=== PATIENT | female | born 1980 | race Two or more races ===

== ENCOUNTER → 2016-08-23 | Outpatient (CLI) | payer MEDICARE, MEDICAID ==
[2016-08-23 12:02] LABS: HEMATOCRIT 38.2 % (36.0-47.0); HEMOGLOBIN 12.7 g/dL (12.0-15.5); HGB HCT DIFFERENCE -0.1; MEAN CORPUSCULAR HEMOGLOBIN 30.7 pg (27.0-33.4); MEAN CORPUSCULAR HGB CONC 33.3 g/dL (32.0-36.0); MEAN CORPUSCULAR VOLUME 92 fl (80-97); RED BLOOD COUNT 4.15 10^6/uL (3.72-5.28); WHITE BLOOD COUNT 12.6 10^3/uL (4.0-10.5)
[2016-08-23 12:31] LABS: ALANINE AMINOTRANSFERASE 30 U/L (9-52); ALBUMIN 4.3 g/dL (3.5-5.0); ALKALINE PHOSPHATASE 96 U/L (38-126); ANION GAP 10 (5-19); ASPARTATE AMINO TRANSFERASE 22 U/L (14-36); BILIRUBIN,TOTAL 0.3 mg/dL (0.2-1.3); BLOOD UREA NITROGEN 22 mg/dL (7-20); CALCIUM 9.4 mg/dL (8.4-10.2); CARBON DIOXIDE 18 mmol/L (22-30); CHLORIDE 115 mmol/L (98-107); CREATININE RESULT 0.95 mg/dL (0.52-1.25); GLUCOSE 90 mg/dL (75-110); SODIUM 143.1 mmol/L (137-145); TOTAL PROTEIN 6.9 g/dL (6.3-8.2)
== END ==
LOC: OD 11:29
PROVIDERS: ATTEND Specialist
DX: G43.909 Migraine, unspecified, not intractable, without status migrainosus (principal); I63.9 Cerebral infarction, unspecified
CPT/HCPCS: 36415; 80053; 82140; 85027

== ENCOUNTER → 2016-11-21 | Outpatient (CLI) | payer MEDICARE, MEDICAID | LOC: OD 09:41 | PROVIDERS: ATTEND Family Medicine | DX: G81.94 Hemiplegia, unspecified affecting left nondominant side (principal); Z53.29 Procedure and treatment not carried out because of patient's decision for other reasons ==

== ENCOUNTER → 2016-12-07 | Outpatient (CLI) | payer MEDICARE, MEDICAID ==
[2016-12-07 10:09] LABS: ABSOLUTE BASOPHILS # (AUTO) 0.1 10^3/uL (0.0-0.2); ABSOLUTE EOSINOPHILS # (AUTO) 0.3 10^3/uL (0.0-0.6); ABSOLUTE LYMPHOCYTES (AUTO) 1.5 10^3/uL (0.5-4.7); ABSOLUTE MONOCYTES (AUTO) 0.7 10^3/uL (0.1-1.4); ABSOLUTE NEUT (AUTO) 8.3 10^3/uL (1.7-8.2); HEMATOCRIT 39.6 % (36.0-47.0); HGB HCT DIFFERENCE -0.6; LYMPHOCYTES % (AUTO) 13.7 % (13-45); MEAN CORPUSCULAR HEMOGLOBIN 30.5 pg (27.0-33.4); MEAN CORPUSCULAR HGB CONC 32.8 g/dL (32.0-36.0); MEAN CORPUSCULAR VOLUME 93 fl (80-97); MONOCYTES % (AUTO) 6.7 % (3-13); RED BLOOD COUNT 4.26 10^6/uL (3.72-5.28); RED CELL DISTRIBUTION WIDTH 15.1 % (11.5-14.0); SEGMENTED NEUTROPHILS % (AUTO) 75.6 % (42-78)
[2016-12-07 10:17] LABS: PROTHROMBIN TIME 13.7 SEC (11.4-15.4)
[2016-12-07 10:18] LABS: PARTIAL THROMBOPLASTIN TIME 30.3 SEC (23.5-35.8)
[2016-12-07 10:33] LABS: ALANINE AMINOTRANSFERASE 20 U/L (9-52); ALBUMIN 3.9 g/dL (3.5-5.0); ALKALINE PHOSPHATASE 96 U/L (38-126); ANION GAP 10 (5-19); ASPARTATE AMINO TRANSFERASE 15 U/L (14-36); BILIRUBIN,DIRECT 0.4 mg/dL (0.0-0.4); BILIRUBIN,TOTAL 0.5 mg/dL (0.2-1.3); BLOOD UREA NITROGEN 23 mg/dL (7-20); CALCIUM 9.5 mg/dL (8.4-10.2); CARBON DIOXIDE 19 mmol/L (22-30); CHLORIDE 112 mmol/L (98-107); CREATININE RESULT 0.98 mg/dL (0.52-1.25); GLUCOSE 89 mg/dL (75-110); POTASSIUM 4.2 mmol/L (3.6-5.0); SODIUM 140.8 mmol/L (137-145); TOTAL PROTEIN 6.7 g/dL (6.3-8.2)
== END ==
LOC: OD 09:32
PROVIDERS: ATTEND Family Medicine
DX: F41.9 Anxiety disorder, unspecified (principal); G81.94 Hemiplegia, unspecified affecting left nondominant side; I69.328 Other speech and language deficits following cerebral infarction; I69.30 Unspecified sequelae of cerebral infarction
CPT/HCPCS: 36415; 80048; 80076; 82140; 84443; 85025; 85610; 85730

== ENCOUNTER 2017-01-04 21:57 | Emergency (ER) | payer MEDICARE, MEDICAID ==
--- NOTE | 2017-01-04 22:10 | ER Document Report ---
ED Medical Screen (RME) - General Chief Complaint: S/S of Possible Stroke Stated Complaint: NUMBNESS Time Seen by Provider: 01/04/17 22:06 Notes: 36-year-old female with a history of CVA and liver failure that comes emergency department for chief complaint of numbness and weakness in the right hand worse than normal starting 2 hours ago. She states she also feels tingling in the right side of her face. She has chronic deficits of speech difficulty from previous CVA. She is not on a blood thinner. She denies any fall or head injury. TRAVEL OUTSIDE OF THE [place] IN LAST 30 DAYS: No - Related Data Allergies/Adverse Reactions: No Known Allergies Allergy (Verified 08/03/15 16:11) Past Medical History - Past Medical History Cardiac Medical History: Reports: Hx Hypertension Denies: Hx Coronary Artery Disease, Hx Heart Attack Pulmonary Medical History: Denies: Hx Asthma, Hx Bronchitis, Hx COPD, Hx Pneumonia, Hx Tuberculosis Neurological Medical History: Reports: Hx Cerebrovascular Accident - Last MRI on 03/14/2013 showed bilateral acute and chronic infarcts in the cerebral and cerebellar hemispheres. At that time a cardiac echo and carotid Doppler studies were negative., Hx Migraine. Denies: Hx Seizures Endocrine Medical History: Denies: Hx Diabetes Mellitus Type 1, Hx Diabetes Mellitus Type 2 Renal/ Medical History: Denies: Hx Peritoneal Dialysis GI Medical History: Reports: Hx Diverticulitis Musculoskeltal Medical History: Denies Hx Arthritis Psychiatric Medical History: Reports: Hx Anxiety, Hx Bipolar Disorder, Hx Depression Past Surgical History: Reports: Hx Section - x1, Hx Cholecystectomy, Hx Pancreatic Surgery - stents. Denies: Hx Pacemaker - Immunizations Immunizations up to date: No Hx Diphtheria, Pertussis, Tetanus Vaccination: Yes Physical Exam - Vital signs Vitals: Temp Pulse Resp BP Pulse Ox 98.3 F 83 20 123/68 97 01/04/17 21:59 01/04/17 21:59 01/04/17 21:59 01/04/17 21:59 01/04/17 21:59 - Neurological Cognition: No: Confused, Inattentive Orientation: AAOx4 [place] Coma Scale Eye Opening: Spontaneous [place] Coma Scale Verbal: Oriented [place] Coma Scale Motor: Obeys Commands [place] Coma Scale Total: 15 Speech: Other - Patient with chronic speech deficit Cranial nerves: No: Facial palsy, Forehead sparing, Gaze palsy, Tongue deviation Cerebellar coordination: No: Gait ataxia Additional motor exam normals: No: Equal manager photo - Left hand contractures, difficult to compare right hand although she does have a right hand squeeze Course - Re-evaluation Re-evalutation: Patient and family have difficulty giving a clear history, patient has difficulty with physical exam with left hand contractures, speech deficit, although I do not appreciate any overt neurological deficits on examination other than what appears to be chronic. Regardless because of reported weakness , numbness, and CVA history stroke protocol initiated. - Vital Signs Vital signs: Temp Pulse Resp BP Pulse Ox 98.3 F 83 20 123/68 97 01/04/17 21:59 01/04/17 21:59 01/04/17 21:59 01/04/17 21:59 01/04/17 21:59
--- NOTE | 2017-01-04 22:46 | ER Document Report ---
ED General - General Chief Complaint: S/S of Possible Stroke Stated Complaint: NUMBNESS Time Seen by Provider: 01/04/17 22:06 Notes: Patient is a 36 year old female with a past medical history of prior CVA with residual dysarthria, bilateral upper extremity weakness who presents with paresthesias of the dorsal aspect of her right hand and of her right cheek. She is uncertain of what time this started exactly what states that she thinks it was 3-4 hours ago although again states she is not actually certain of what time this started. She denies any true loss of sensation, weakness, change in her speech pattern, headache or neck pain. Nothing improves or worsens her symptoms. She has not seen her primary care doctor regarding today's concerns. She is not currently on anti-anticoagulation even aspirin due to prior history of a Tylenol overdose with some residual hepatic failure. She does note that her paresthesias are intermittent in nature and have been unchanged since onset in their intensity. TRAVEL OUTSIDE OF THE [place] IN LAST 30 DAYS: No - Related Data Allergies/Adverse Reactions: No Known Allergies Allergy (Verified 08/03/15 16:11) Past Medical History - General Information source: Patient - Social History Smoking Status: Current Every Day Smoker Frequency of alcohol use: None Drug Abuse: None Lives with: Spouse/Significant other Family History: Reviewed & Not Pertinent, DM, Hypertension Patient has suicidal ideation: No Patient has homicidal ideation: No - Past Medical History Cardiac Medical History: Reports: Hx Hypertension Denies: Hx Coronary Artery Disease, Hx Heart Attack Pulmonary Medical History: Denies: Hx Asthma, Hx Bronchitis, Hx COPD, Hx Pneumonia, Hx Tuberculosis Neurological Medical History: Reports: Hx Cerebrovascular Accident - Last MRI on 03/14/2013 showed bilateral acute and chronic infarcts in the cerebral and cerebellar hemispheres. At that time a cardiac echo and carotid Doppler studies were negative., Hx Migraine. Denies: Hx Seizures Endocrine Medical History: Denies: Hx Diabetes Mellitus Type 1, Hx Diabetes Mellitus Type 2 Renal/ Medical History: Denies: Hx Peritoneal Dialysis GI Medical History: Reports: Hx Diverticulitis Musculoskeltal Medical History: Denies Hx Arthritis Psychiatric Medical History: Reports: Hx Anxiety, Hx Bipolar Disorder, Hx Depression Past Surgical History: Reports: Hx Section - x1, Hx Cholecystectomy, Hx Pancreatic Surgery - stents. Denies: Hx Pacemaker - Immunizations Immunizations up to date: No Hx Diphtheria, Pertussis, Tetanus Vaccination: Yes Hx Pneumococcal Vaccination: 07/16/00 Review of Systems - Review of Systems Notes: Constitutional: Negative for fever. HENT: Negative for sore throat. Eyes: Negative for visual changes. Cardiovascular: Negative for chest pain. Respiratory: Negative for shortness of breath. Gastrointestinal: Negative for abdominal pain, vomiting or diarrhea. Genitourinary: Negative for dysuria. Musculoskeletal: Negative for back pain. Skin: Negative for rash. Neurological: Negative for headaches, weakness or numbness. Positive for dorsal right hand paresthesias as well as right cheek paresthesias. 10 point ROS negative except as marked above and in HPI. Physical Exam - Vital signs Vitals: Temp Pulse Resp BP Pulse Ox 98.3 F 83 20 123/68 97 01/04/17 21:59 01/04/17 21:59 01/04/17 21:59 01/04/17 21:59 01/04/17 21:59 Interpretation: Normal Notes: PHYSICAL EXAMINATION: GENERAL: Well-appearing, well-nourished and in no acute distress. HEAD: Atraumatic, normocephalic. EYES: Pupils equal round and reactive to light, extraocular movements intact, sclera anicteric, conjunctiva are normal. ENT: nares patent, oropharynx clear without exudates. Moist mucous membranes. NECK: Normal range of motion, supple without lymphadenopathy LUNGS: Breath sounds clear to auscultation bilaterally and equal. No wheezes rales or rhonchi. HEART: Regular rate and rhythm without murmurs ABDOMEN: Soft, nontender, normoactive bowel sounds. No guarding, no rebound. No masses appreciated. EXTREMITIES: Normal range of motion, no pitting or edema. No cyanosis. NEUROLOGICAL: Face symmetric. Tongue protrudes midline. Extraocular motions intact. Pupils are 2 mm and equally reactive. Slight dysarthria, normal gait. 5 out of 5 strength in both the distal and proximal upper and lower extremities bilaterally. Contracture of the left hand. No sensory deficit present. Patient has full sensation in the RMU distribution in the bilateral upper extremities. Facial sensation is equal and symmetric bilaterally without any true sensory deficit on touch. Finger to nose testing normal. Pronator drift normal. PSYCH: Normal mood, normal affect. SKIN: Warm, Dry, normal turgor, no rashes or lesions noted. Course - Re-evaluation Re-evalutation: 01/04/17 22:46 Patient presents with paresthesias of the cheek on the right side as well as her hand over the dorsal surface on the right. This is not consistent with a central process. Moreover her symptoms are intermittent. She would not be a TPA candidate given that her NIH stroke scale at time of arrival is unchanged from her reported baseline without any true sensory deficit in any location. Moreover patient is uncertain of the exact time of onset. I reviewed with the patient and her at the bedside that even if this was an acute onset of a new CVA, no acute intervention would be recommended given the nature of her deficits, the uncertain onset time, particularly given the risks of intracranial hemorrhage in the setting of TPA relative to the possible benefits of improvement of her mild symptoms. Patient does have a prior history of a CVA and is following with an outpatient primary care doctor for her needs. Unfortunately, patient is not currently on any anticoagulation despite this prior history of CVA given her history of liver failure in the past although recent laboratories from the end of November 2016 did not demonstrate any LFT abnormalities her INR derangement. I therefore encouraged the patient to begin taking a daily baby aspirin. I have asked her to follow-up with her primary care doctor to complete carotid Dopplers. No indication for repeat labs today again as I do not suspect an acute TIA or CVA based on her exam and history. Her CT of the head obtained in triage is noted to be without evidence of an acute pathology. I do not believe an emergent MRI is indicated given her normal neurologic examination with the exception of her baseline dysarthria and left-sided ataxia and contracture of the left hand. At this time will discharge with return precautions and follow-up recommendations. Verbal discharge instructions given a the bedside and opportunity for questions given. Medication warnings reviewed. Patient is in agreement with this plan and has verbalized understanding of return precautions and the need for primary care follow-up in the next 24-72 hours. - Vital Signs Vital signs: Temp Pulse Resp BP Pulse Ox 98.3 F 83 20 123/68 97 01/04/17 21:59 01/04/17 21:59 01/04/17 21:59 01/04/17 21:59 01/04/17 21:59 - Diagnostic Test Radiology reviewed: Image reviewed, Reports reviewed Radiology results interpreted by me: 01/04/17 22:48 CT head: No acute intracranial bleed - EKG Interpretation by Me Additional EKG results interpreted by me: 01/04/17 22:53 Medical sinus rhythm. Rate 60. No ST elevations or depressions. QTC is 428. Discharge - Discharge Clinical Impression: Paresthesias in right hand, Facial paresthesia Condition: Good Disposition: HOME, SELF-CARE Additional Instructions: Your symptoms do not appear consistent with an acute stroke. However, your labs from late November are normal and I have asked that she begin taking aspirin 81 mg daily. Please also follow-up with your primary care doctor in the next several days regarding today's episode. Please return if you develop a loss of sensation in any region, new weakness, new speech difficulties, confusion, or any other symptoms that are worrisome to you.
--- NOTE | 2017-01-04 22:52 | RADIOLOGY REPORT (SQ) ---
EXAM DESCRIPTION: CHEST SINGLE VIEW COMPLETED DATE/TIME: 01/04/2017 10:16 pm REASON FOR STUDY: right sided weakness/numbness COMPARISON: May 2016 EXAM PARAMETERS: NUMBER OF VIEWS: One view. TECHNIQUE: Single frontal radiographic view of the chest acquired. RADIATION DOSE: NA LIMITATIONS: None. FINDINGS: LUNGS AND PLEURA: No opacities, masses or pneumothorax. No pleural effusion. MEDIASTINUM AND HILAR STRUCTURES: No masses. Contour normal. HEART AND VASCULAR STRUCTURES: Heart normal in size. Normal vasculature. BONES: No acute findings. HARDWARE: None in the chest. OTHER: No other significant finding. IMPRESSION: NO ACUTE RADIOGRAPHIC FINDING IN THE CHEST. TECHNICAL DOCUMENTATION: JOB ID: [id number]
--- NOTE | 2017-01-04 22:52 | RADIOLOGY REPORT (SQ) ---
EXAM DESCRIPTION: CT HEAD WITHOUT COMPLETED DATE/TIME: 01/04/2017 10:14 pm REASON FOR STUDY: right sided weakness/numbness COMPARISON: Multiple previous studies most recent of which was November 2015 TECHNIQUE: Axial images acquired through the brain without intravenous contrast. Images reviewed wi th bone, brain and subdural windows. Images stored on PACS. All CT scanners at this facility use dose modulation, iterative reconstruction, and/or weight based d osing when appropriate to reduce radiation dose to as low as reasonably achievable (ALARA). [facility]: Dose Right [facility]: CareDose [facility]: Dose Right [facility]: Teradose 4D [facility]: Smart [employer] RADIATION DOSE: Up-to-date CT equipment and radiation dose reduction techniques were employed. CTDIv ol: 55.2 mGy. DLP: 1084 mGy-cm. mGy. LIMITATIONS: None. FINDINGS: VENTRICLES: Prominent. CEREBRUM: No masses. No hemorrhage. No midline shift. Areas of low density in the white matter mos t likely due to chronic micro-vascular ischemic change. The previously described multiple areas of p rior infarction involving the right occipital lobe, bilateral frontal and right parietal lobes appear s stable. No evidence for acute infarction. CEREBELLUM: No masses. No hemorrhage. No alteration of density. No evidence for acute infarction. EXTRAAXIAL SPACES: Mild age-related involutional change. No fluid collections. No masses. ORBITS AND GLOBE: No intra- or extraconal masses. Normal contour of globe without masses. CALVARIUM: No fracture. PARANASAL SINUSES: No fluid or mucosal thickening. SOFT TISSUES: No mass or hematoma. OTHER: No other significant finding. IMPRESSION: MILD CHRONIC CHANGES OF ATROPHY AND MICROVASCULAR ISCHEMIA. Multiple areas of prior inf arction which appears stable. NO ACUTE PROCESS. TECHNICAL DOCUMENTATION: JOB ID: [id number] Quality ID # [id number]: Final reports with documentation of one or more dose reduction techniques (e.g., Au tomated exposure control, adjustment of the mA and/or kV according to patient size, use of iterative reconstruction technique) 2010 [employer]- All Rights Reserved
[2017-01-05 00:25] VITALS: BP 125/76
--- NOTE | 2017-01-05 03:57 | EKG REPORT ---
SEVERITY:- NORMAL ECG - SINUS RHYTHM : Confirmed by: Cher Goodwin MD 05-Jan-2017 03:55:50
== END 2017-01-05 00:25 | disposition home or self-care (01) ==
LOC: ER 21:57
DX: R20.9 Unspecified disturbances of skin sensation (principal); I69.122 Dysarthria following nontraumatic intracerebral hemorrhage; F17.200 Nicotine dependence, unspecified, uncomplicated; I10 Essential (primary) hypertension
CPT/HCPCS: 70450; 71010; 93005; 93010; 99284

== ENCOUNTER → 2017-04-06 | Outpatient (CLI) | payer MEDICARE, MEDICAID ==
--- NOTE | 2017-04-06 14:14 | RADIOLOGY REPORT (SQ) ---
EXAM DESCRIPTION: HAND LEFT 3 VIEWS COMPLETED DATE/TIME: 04/06/2017 11:29 am REASON FOR STUDY: UNSP INJURY OF LEFT WRIST, HAND AND FINGER(S), INIT ENCNTR S69.92XA UNSP INJURY O F LEFT WRIST, HAND AND FINGER(S), INIT COMPARISON: None. EXAM PARAMETERS: NUMBER OF VIEWS: Three views. TECHNIQUE: AP, lateral and oblique radiographic images acquired of the left hand. LIMITATIONS: None. FINDINGS: MINERALIZATION: There is periarticular osteopenia throughout the hand, from the distal rad ius and ulna through the fingertips. Clinically correlate for reflex sympathetic dystrophy. BONES: No acute fracture or dislocation. No worrisome bone lesions. JOINTS: No effusions. SOFT TISSUES: No soft tissue swelling. No foreign body. OTHER: No other significant finding. IMPRESSION: No acute fracture. Periarticular osteopenia, question of reflex sympathetic dystrophy TECHNICAL DOCUMENTATION: JOB ID: [id number] [employer]- All Rights Reserved
== END ==
LOC: OD 11:06
PROVIDERS: ATTEND Family Medicine
DX: S69.92XA Unspecified injury of left wrist, hand and finger(s), initial encounter (principal); X58.XXXA Exposure to other specified factors, initial encounter

== ENCOUNTER 2017-08-31 16:14 | Emergency (ER) | payer MEDICARE, MEDICAID ==
[2017-08-31] MEDS ORDERED: HYDROCODONE/ACETAMINOPHEN 5-325 MG TABLET PO ONE (18:11)
[2017-08-31] MEDS ORDERED: LIDOCAINE 5% (700 MG) TRANSDERMAL ADH..PATCH TP ONE (18:11)
--- NOTE | 2017-08-31 18:15 | ER Document Report ---
HPI - HPI Onset: This morning Onset/Duration: Gradual Quality of pain: Achy Pain Level: 5 Context: Patient states that she was sleeping twisted up on the couch with her dog landing on her feet. Patient states because of this position she developed low back pain. Patient denies any traumatic injury. Patient denies any urinary retention or incontinence. Patient denies any dysuria. Patient denies any fever. Associated Symptoms: Other - Low back pain. denies: Fever Exacerbated by: Movement Relieved by: Denies Similar symptoms previously: No Recently seen / treated by doctor: No - ROS ROS below otherwise negative: Yes Systems Reviewed and Negative: Yes All other systems reviewed and negative - CONSTITUTIONAL Constitutional: DENIES: Fever, Chills - RESPIRATORY Respiratory: DENIES: Trouble Breathing - GASTROINTESTINAL Gastrointestinal: DENIES: Abdominal Pain - URINARY Urinary: DENIES: Dysuria - REPRODUCTIVE LMP: 08/06/17 Reproductive: DENIES: : - MUSCULOSKELETAL Musculoskeletal: REPORTS: Back Pain. DENIES: Extremity pain - DERM Skin Color: Normal Skin Problems: None Past Medical History - General Information source: Patient - Social History Smoking Status: Current Every Day Smoker Frequency of alcohol use: None Drug Abuse: None Occupation: None Lives with: Family Family History: Reviewed & Not Pertinent, DM, Hypertension Patient has suicidal ideation: No Patient has homicidal ideation: No - Past Medical History Cardiac Medical History: Reports: Hx Hypertension Denies: Hx Coronary Artery Disease, Hx Heart Attack Pulmonary Medical History: Denies: Hx Asthma, Hx Bronchitis, Hx COPD, Hx Pneumonia, Hx Tuberculosis Neurological Medical History: Reports: Hx Cerebrovascular Accident - Last MRI on 03/14/2013 showed bilateral acute and chronic infarcts in the cerebral and cerebellar hemispheres. At that time a cardiac echo and carotid Doppler studies were negative., Hx Migraine. Denies: Hx Seizures Endocrine Medical History: Denies: Hx Diabetes Mellitus Type 1, Hx Diabetes Mellitus Type 2 Renal/ Medical History: Denies: Hx Peritoneal Dialysis GI Medical History: Reports: Hx Diverticulitis, Hx Pancreatitis Musculoskeltal Medical History: Denies Hx Arthritis Psychiatric Medical History: Reports: Hx Anxiety, Hx Bipolar Disorder, Hx Depression Past Surgical History: Reports: Hx Section - x1, Hx Cholecystectomy, Hx Pancreatic Surgery - stents. Denies: Hx Pacemaker - Immunizations Immunizations up to date: No Hx Diphtheria, Pertussis, Tetanus Vaccination: Yes Hx Pneumococcal Vaccination: 07/16/00 Vertical Provider Document - CONSTITUTIONAL Agree With Documented VS: Yes Exam Limitations: No Limitations General Appearance: WD/WN, No Apparent Distress - INFECTION CONTROL TRAVEL OUTSIDE OF THE [place] IN LAST 30 DAYS: No - HEENT HEENT: Atraumatic, Normocephalic - NECK Neck: Normal Inspection - RESPIRATORY Respiratory: Breath Sounds Normal, No Respiratory Distress O2 Sat by Pulse Oximetry: 97 - CARDIOVASCULAR Cardiovascular: Regular Rate, Regular Rhythm - GI/ABDOMEN Gastrointestinal: Abdomen Soft, Abdomen Non-Tender - BACK Back: Abnormal Inspection - Lumbar paraspinal tenderness, no CVA tenderness, no midline tenderness, step-off or deformity. negative: CVA Tenderness-Right, CVA Tenderness-Left - MUSCULOSKELETAL/EXTREMETIES Musculoskeletal/Extremeties: MAEW, FROM, Non-Tender - NEURO Level of Consciousness: Awake, Alert, Appropriate Motor/Sensory: No Motor Deficit - DERM Integumentary: Warm, Dry Course - Vital Signs Vital signs: Temp Pulse Resp BP Pulse Ox 99.0 F 63 16 97/55 L 97 08/31/17 16:26 08/31/17 16:26 08/31/17 16:26 08/31/17 16:26 08/31/17 16:26 - Laboratory Laboratory results interpreted by me: 08/31/17 18:55 Labs- Entire Visit 08/31/17 18:20 Urine Color STRAW Urine Appearance CLEAR Urine pH 6.0 Ur Specific [place] 1.004 Urine Protein NEGATIVE Urine Glucose (UA) NEGATIVE Urine Ketones NEGATIVE Urine Blood NEGATIVE Urine Nitrite NEGATIVE Urine Bilirubin NEGATIVE Urine Urobilinogen NEGATIVE Ur Leukocyte Esterase NEGATIVE Urine WBC (Auto) 1 Urine RBC (Auto) 0 Urine Bacteria (Auto) TRACE Squamous Epi Cells Auto 2 Urine Mucus (Auto) RARE Urine Ascorbic Acid NEGATIVE Discharge - Discharge Clinical Impression: Low back strain Qualifiers: Encounter type: initial encounter Qualified Code(s): S39.012A - Strain of muscle, fascia and tendon of lower back, initial encounter Condition: Stable Disposition: HOME, SELF-CARE Instructions: Ice Packs ([facility]), Low Back Pain ([facility]), Warm Packs ([facility]) Additional Instructions: Return immediately for any new or worsening symptoms Followup with your primary care provider, call tomorrow to make a followup appointment You may use [id number] topical lidocaine patches as directed Prescriptions: Cyclobenzaprine HCl [Flexeril 5 mg Tablet] 5 mg PO TID PRN #12 tablet PRN Reason: Naproxen [Naprosyn 250 Nmg Tablet] 1 tab PO BID #14 tablet Referrals: VANESSA PERALTA DO [NO LOCAL MD] - 09/03/17
[2017-08-31] MEDS ORDERED: IBUPROFEN 800 MG TABLET PO ONE (18:16)
[2017-08-31 18:38] LABS: APPEARANCE,URINE CLEAR; BILIRUBIN,URINE NEGATIVE (NEGATIVE); COLOR,URINE STRAW; GLUCOSE, URINE NEGATIVE (NEGATIVE); KETONES,URINE NEGATIVE (NEGATIVE); LEUKOCYTE ESTERASE,URINE NEGATIVE (NEGATIVE); NITRITE,URINE NEGATIVE (NEGATIVE); PROTEIN,URINE NEGATIVE (NEGATIVE); URINE SPECIFIC GRAVITY 1.004; UROBILINOGEN,URINE NEGATIVE mg/dL (<2.0)
[2017-08-31 19:07] VITALS: BP 99/58
== END 2017-08-31 19:08 | disposition home or self-care (01) ==
LOC: ER 16:14
DX: S39.012A Strain of muscle, fascia and tendon of lower back, initial encounter (principal); I10 Essential (primary) hypertension; F17.200 Nicotine dependence, unspecified, uncomplicated; X58.XXXA Exposure to other specified factors, initial encounter
CPT/HCPCS: 99283; 81001; A9270

== ENCOUNTER → 2018-03-13 | Outpatient (CLI) | payer MEDICARE, MEDICAID ==
--- NOTE | 2018-03-13 15:02 | RADIOLOGY REPORT (SQ) ---
EXAM DESCRIPTION: FOOT LEFT COMPLETE COMPLETED DATE/TIME: 03/13/2018 2:54 pm REASON FOR STUDY: PAIN IN LT FOOT M79.672 PAIN IN LEFT FOOT R07.81 PLEURODYNIA COMPARISON: None. NUMBER OF VIEWS: Three views. TECHNIQUE: AP, lateral and oblique radiographic images acquired of the left foot. LIMITATIONS: None. FINDINGS: MINERALIZATION: Normal. BONES: No acute fracture or dislocation. No worrisome bone lesions. JOINTS: No effusions. SOFT TISSUES: No soft tissue swelling. No foreign body. OTHER: No other significant finding. IMPRESSION: NEGATIVE STUDY OF THE LEFT FOOT. NO RADIOGRAPHIC EVIDENCE OF ACUTE INJURY. TECHNICAL DOCUMENTATION: JOB ID: [id number] [employer]- All Rights Reserved Reading location - IP/workstation name: [email or web address]
--- NOTE | 2018-03-13 15:04 | RADIOLOGY REPORT (SQ) ---
EXAM DESCRIPTION: RIBS RIGHT W/PA CHEST COMPLETED DATE/TIME: 03/13/2018 2:54 pm REASON FOR STUDY: PLEURODYNIA M79.672 PAIN IN LEFT FOOT R07.81 PLEURODYNIA COMPARISON: None. TECHNIQUE: Frontal view of the chest and additional views of the right ribs acquired. NUMBER OF VIEWS: Four view. LIMITATIONS: None. FINDINGS: FRONTAL CXR: No pneumothorax. No pleural effusion. No atelectasis or infiltrates. RIBS: There are mildly displaced fractures of the 7th and 8th lateral ribs. OTHER: No other significant finding. IMPRESSION: Mildly displaced 7th and 8th right lateral rib fractures. COMMENT: SITE OF TRAUMA/COMPLAINT MARKED/STAMP COMPLETED: YES. TECHNICAL DOCUMENTATION: JOB ID: [id number] [employer]- All Rights Reserved Reading location - IP/workstation name: [email or web address]
== END ==
LOC: OD 14:19
PROVIDERS: ATTEND Family Medicine
DX: M79.672 Pain in left foot (principal); R07.81 Pleurodynia; S22.41XA Multiple fractures of ribs, right side, initial encounter for closed fracture; X58.XXXA Exposure to other specified factors, initial encounter

== ENCOUNTER → 2018-05-09 | Outpatient (CLI) | payer MEDICARE, MEDICAID ==
--- NOTE | 2018-05-09 10:28 | RADIOLOGY REPORT (SQ) ---
EXAM DESCRIPTION: MRI HEAD COMBO COMPLETED DATE/TIME: 05/09/2018 9:59 am REASON FOR STUDY: UNSPEC SEQUELAE OF CEREBRAL INFARCTION (I69.30) I73.9 PERIPHERAL VASCULAR DISEASE , UNSPECIFIED R10.13 EPIGASTRIC PAIN I69.30 UNSPECIFIED SEQUELAE OF CEREBRAL INFARCTION COMPARISON: CT brain 01/04/2017, 11/20/2015 MRI brain 03/14/2013, 12/07/2011 TECHNIQUE: Multiplanar imaging includes noncontrasted T1, T2, FLAIR, diffusion with ADC map and post gadolinium contrast T1 sequences. Images stored on PACS. CONTRAST TYPE AND DOSE: 10 mL Dotarem. RENAL FUNCTION: Estimated GFR 57 LIMITATIONS: None. FINDINGS: ANATOMY: No congenital anomalies. Normal vascular flow voids. Pituitary fossa normal. CSF SPACES: Normal in size and contour. No hemorrhage. CEREBRUM: Multiple old moderate-sized cortical and subcortical white matter infarcts are present thro ughout the cerebral hemispheres. These involve the bifrontal biparietal and bilateral occipital maggy ons and left inferior temporal region. Old lacunar infarct left thalamus. Significant progression o f disease since prior MRI 03/14/2013. Question embolic disease with multiple infarcts in different va scular distributions versus DECK CADET vasculitis. Today's diffusion-weighted images are negative for acute ischemic change. No mass effect or midline shift. POSTERIOR FOSSA: Old bilateral cerebellar lacunar infarcts are present, similar compared MRI from 02/15. No hemorrhage. No edema, masses, or mass effect. Internal auditory canals, cerebellopontine angles, mastoids normal. No enhancing lesions. No abnormal enhancement post contrast. DIFFUSION IMAGING: Negative for acute or subacute infarction. ORBITS: No masses. Globes normal. PARANASAL SINUSES: No fluid levels. Mucosa normal. OTHER: No other significant finding. IMPRESSION: Extensive chronic ischemic change in the hemispheric white matter and bilateral cerebell ar hemispheres. Differential is multiple emboli versus DECK CADET vasculitis. No new findings on today's study. EVIDENCE OF ACUTE STROKE: NO. TECHNICAL DOCUMENTATION: JOB ID: [id number] [employer]- All Rights Reserved Reading location - IP/workstation name: [email or web address]
--- NOTE | 2018-05-09 11:57 | RADIOLOGY REPORT (SQ) ---
EXAM DESCRIPTION: CT ABDOMEN WITH IV ORAL CONT COMPLETED DATE/TIME: 05/09/2018 10:11 am REASON FOR STUDY: EPIGASTRIC PAIN (R10.13) I73.9 PERIPHERAL VASCULAR DISEASE, UNSPECIFIED R10.13 E PIGASTRIC PAIN I69.30 UNSPECIFIED SEQUELAE OF CEREBRAL INFARCTION COMPARISON: None. TECHNIQUE: CT scan of the abdomen performed with intravenous and without oral contrast using helical scanning technique with dynamic intravenous contrast injection. Images reviewed with lung, soft tiss ue, and bone windows. Reconstructed coronal and sagittal MPR images reviewed. Delayed images for eval uation of the urinary system also acquired and evaluated. All images stored on PACS. All CT scanners at this facility use dose modulation, iterative reconstruc tion, and/or weight based dosing when appropriate to reduce radiation dose to as low as reasonably ac hievable (ALARA). [facility]: Dose Right [facility]: CareDose [facility]: Dose Right [facility]: Teradose 4D [facility]: FileHold Document Management software CONTRAST TYPE AND DOSE: contrast/concentration: Isovue 350.00 mg/ml; Total Contrast Delivered: 58.0 ml; Total Saline Delivered: 65.0 ml RENAL FUNCTION: Creatinine 1.2 RADIATION DOSE: CT Rad equipment meets quality standard of care and radiation dose reduction techniq ues were employed. CTDIvol: 2.8 - 3.2 mGy. DLP: 184 mGy-cm. . LIMITATIONS: None. FINDINGS: LOWER CHEST: No significant findings. No nodules or infiltrates. LIVER: Normal size. No masses. There is pneumobilia. The patient has had prior cholecystectomy. SPLEEN: Normal size. No focal lesions. PANCREAS: No focal masses are inflammation. There is pancreatic calcification which may represent ch ronic pancreatitis. GALLBLADDER: Surgically absent. ADRENAL GLANDS: No significant masses or asymmetry. RIGHT KIDNEY AND URETER: No solid masses. No significant calcifications. No hydronephrosis or hyd roureter. LEFT KIDNEY AND URETER: No solid masses. No significant calcifications. No hydronephrosis or hydr oureter. AORTA AND VESSELS: No aneurysm. No dissection. Renal arteries, SMA, celiac without stenosis. RETROPERITONEUM: No retroperitoneal adenopathy, hemorrhage or masses. BOWEL AND PERITONEAL CAVITY: No masses or inflammatory changes. No free fluid or peritoneal masses. APPENDIX: Not visualized. ABDOMINAL WALL: No masses. No hernias. BONES: No significant or acute findings. OTHER: No other significant finding. IMPRESSION: No acute findings in the abdomen. Pneumobilia is most likely secondary to cholecystecto my and sphincterotomy. Clinical correlation is needed. TECHNICAL DOCUMENTATION: JOB ID: [id number] Quality ID # [id number]: Final reports with documentation of one or more dose reduction techniques (e.g., Au tomated exposure control, adjustment of the mA and/or kV according to patient size, use of iterative reconstruction technique) 2010 [employer]- All Rights Reserved Reading location - IP/workstation name: RL
--- NOTE | 2018-05-09 16:21 | XCELERA REPORT ---
[address] [address] Lower Extremity Arterial Evaluation Name: HOLLIE LLOYD Age: 37 yrs Gender: Female : 1980 Patient Status: Outpatient Patient Location: RAD Study Date: 05/09/2018 10:24 AM Procedure: A color flow and duplex scan of the lower extremity arteries was performed on the left with velocity and waveform anaylsis. Reason For Study: JUANJO PVD Ordering Physician: VANESSA PERALTA Performed By: Idris Awan Measurements and Calculations Right Left THREE KNIFE TRIMMER PSV 205.4 cm/sec Prox PFA PSV -147.6cm/sec Prox SFA PSV 149.3 cm/sec Mid SFA PSV -190.5cm/sec Dist SFA PSV -167.9cm/sec Prox Pop A PSV 69.4 cm/sec Dist ALEC PSV 72.5 cm/sec Dist CONTRACTING SUPPORT SPECIALIST PSV 61.8 cm/sec [place] Pedis PSV -56.9 -53.4 cm/sec Left Side Arterial Evaluation Normal velocity and triphasic waveforms noted from the Common Femoral artery to the infrageniculate vessels. 0 % stenosis. Ankle Brachial index was attempted, the;patient was not able to tolerate the pressure. Interpretation Summary No hemodynamically significant lesions in the left lower extremity only, on duplex imaging, at rest. : VANESSA PERALTA > Enrique Austin
== END ==
LOC: RAD 08:26
PROVIDERS: ATTEND Family Medicine
DX: I69.30 Unspecified sequelae of cerebral infarction (principal); I73.9 Peripheral vascular disease, unspecified; R10.13 Epigastric pain
CPT/HCPCS: 82565; 93926 ×2; 70553; 74160; A9576

== ENCOUNTER 2018-11-07 23:39 | Emergency (ER) | payer MEDICARE, MEDICAID ==
[2018-11-08] MEDS ORDERED: ONDANSETRON 4 MG TAB.RAPDIS PO ONE (00:37)
[2018-11-08] MEDS ORDERED: OXYCODONE-ACETAMINOPHEN 5-325 MG TABLET PO ONE (00:37)
--- NOTE | 2018-11-08 00:39 | ER Document Report ---
ED Medical Screen (RME) - General Chief Complaint: Abdominal Pain Stated Complaint: ABDOMINAL PAIN Time Seen by Provider: 11/08/18 00:36 Primary Care Provider: VANESSA PERALTA DO [Primary Care Provider] - Follow up as needed Notes: 38-year-old female with history of multiple strokes and difficult speech coming in tonight with complaints of epigastric pain that radiates to her back. She says she has had pancreatitis in the past. Says she does not smoke or drink alcohol. No fevers. Nausea and vomiting. I have treated and performed a rapid initial assessment of this patient. A comprehensive ED assessment and evaluation of the patient, analysis of test results and completion of medical decision making process will be conducted by additional ED providers. PHYSICAL EXAMINATION: GENERAL: Patient looks uncomfortable but not toxic LUNGS: Breath sounds clear to auscultation bilaterally and equal. No wheezes rales or rhonchi. HEART: Regular rate and rhythm without murmurs, rubs, gallops. ABDOMEN: Positive for epigastric abdominal tenderness no distention. No guarding or rebound Extremities: No cyanosis, clubbing, or edema b/l. TRAVEL OUTSIDE OF THE [place] IN LAST 30 DAYS: No - Related Data Allergies/Adverse Reactions: No Known Allergies Allergy (Verified 08/31/17 16:15) Past Medical History - Past Medical History Cardiac Medical History: Reports: Hx Hypertension Denies: Hx Coronary Artery Disease, Hx Heart Attack Pulmonary Medical History: Denies: Hx Asthma, Hx Bronchitis, Hx COPD, Hx Pneumonia, Hx Tuberculosis Neurological Medical History: Reports: Hx Cerebrovascular Accident - Last MRI on 03/14/2013 showed bilateral acute and chronic infarcts in the cerebral and cerebellar hemispheres. At that time a cardiac echo and carotid Doppler studies were negative., Hx Migraine. Denies: Hx Seizures Endocrine Medical History: Denies: Hx Diabetes Mellitus Type 1, Hx Diabetes Mellitus Type 2 Renal/ Medical History: Denies: Hx Peritoneal Dialysis GI Medical History: Reports: Hx Diverticulitis, Hx Pancreatitis Musculoskeltal Medical History: Denies Hx Arthritis Psychiatric Medical History: Reports: Hx Anxiety, Hx Bipolar Disorder, Hx Depression Past Surgical History: Reports: Hx Section - x1, Hx Cholecystectomy, Hx Pancreatic Surgery - stents. Denies: Hx Pacemaker - Immunizations Immunizations up to date: No Hx Diphtheria, Pertussis, Tetanus Vaccination: Yes Physical Exam - Vital signs Vitals: Temp Pulse Resp BP Pulse Ox 98.7 F 76 16 92/58 L 99 11/08/18 00:00 11/08/18 00:00 11/08/18 00:00 11/08/18 00:00 11/08/18 00:00 Course - Vital Signs Vital signs: Temp Pulse Resp BP Pulse Ox 98.7 F 76 16 92/58 L 99 11/08/18 00:00 11/08/18 00:00 11/08/18 00:00 11/08/18 00:00 11/08/18 00:00 Doctor's Discharge - Discharge Referrals: VANESSA PERALTA DO [Primary Care Provider] - Follow up as needed
[2018-11-08] MEDS ORDERED: MORPHINE SULFATE 10 MG/ML INJ IM ONE (01:55)
--- NOTE | 2018-11-08 01:55 | ER Document Report ---
ED General - General Chief Complaint: Abdominal Pain Stated Complaint: ABDOMINAL PAIN Time Seen by Provider: 11/08/18 00:36 Primary Care Provider: VANESSA PERALTA DO [Primary Care Provider] - Follow up as needed Notes: This is an unfortunate 38-year-old lady with a history of chronic pancreatitis and multiple strokes who presents with 1 day of abdominal pain generalized with nausea and reported vomiting although she is been eating all day. She says this pain is like her prior otitis. She is here with her daughter who is helping with translation because she has some aphasia. Daughter says no diarrhea no fever. Does not have a gallbladder anymore. TRAVEL OUTSIDE OF THE [place] IN LAST 30 DAYS: No - Related Data Allergies/Adverse Reactions: No Known Allergies Allergy (Verified 08/31/17 16:15) Past Medical History - Social History Smoking Status: Former Smoker Family History: Reviewed & Not Pertinent, DM, Hypertension - Past Medical History Cardiac Medical History: Reports: Hx Hypertension Denies: Hx Coronary Artery Disease, Hx Heart Attack Pulmonary Medical History: Denies: Hx Asthma, Hx Bronchitis, Hx COPD, Hx Pneumonia, Hx Tuberculosis Neurological Medical History: Reports: Hx Cerebrovascular Accident - Last MRI on 03/14/2013 showed bilateral acute and chronic infarcts in the cerebral and cerebellar hemispheres. At that time a cardiac echo and carotid Doppler studies were negative., Hx Migraine. Denies: Hx Seizures Endocrine Medical History: Denies: Hx Diabetes Mellitus Type 1, Hx Diabetes Mellitus Type 2 Renal/ Medical History: Denies: Hx Peritoneal Dialysis GI Medical History: Reports: Hx Diverticulitis, Hx Pancreatitis Musculoskeletal Medical History: Denies Hx Arthritis Psychiatric Medical History: Reports: Hx Anxiety, Hx Bipolar Disorder, Hx Depression Past Surgical History: Reports: Hx Section - x1, Hx Cholecystectomy, Hx Pancreatic Surgery - stents. Denies: Hx Pacemaker - Immunizations Immunizations up to date: No Hx Diphtheria, Pertussis, Tetanus Vaccination: Yes Hx Pneumococcal Vaccination: 07/16/00 Review of Systems - Review of Systems Notes: REVIEW OF SYSTEMS GEN: Denies fever, chills, weight loss ENT: Denies sore throat, nasal discharge, ear pain EYES: Denies blurry vision, eye pain, discharge CV: Denies chest pain, palpitations, edema RESP: Denies cough, shortness of breath, wheezing GI: Abdominal pain MSK: Denies joint pain/swelling, edema, SKIN: Denies rash, skin lesions LYMPH: Denies swollen glands/lymph nodes NEURO: Denies headache, focal weakness or numbness, dizziness PSYCH: Denies depression, suicidal or homicidal ideation PHYSICAL EXAMINATION General: No acute distress, well-nourished Head: Atraumatic, normocephalic ENT: Mouth normal, oropharynx moist, no exudates or tonsillar enlargement Eyes: Conjunctiva normal, pupils equal, lids normal Neck: No JVD, supple, no guarding CVS: Normal rate, regular rhythm, no murmurs Resp: No resp distress, equal and normal breath sounds bilaterally GI: The abdomen and discomfort, however nondistended, soft, no tenderness to palpation, no rebound or guarding Ext: No deformities, no edema, normal range of motion in upper and lower ext Back: No CVA or midline TTP Skin: No rash, warm Lymphatic: No lymphadeopathy noted Neuro: Wake and alert responds to questions with mild to moderate aphasia and left-sided weakness with contractures Physical Exam - Vital signs Vitals: Temp Pulse Resp BP Pulse Ox 98.7 F 76 16 92/58 L 99 11/08/18 00:00 11/08/18 00:00 11/08/18 00:00 11/08/18 00:00 11/08/18 00:00 Course - Re-evaluation Re-evalutation: 11/08/18 01:55 Abdominal pain for 1 day with mental tenderness, already tolerating p.o.'s and history of chronic pink otitis likely a flare of chronic otitis. Will check labs give 1 round of pain medicine, does not need imaging at this time based on lack of abdominal tenderness or fever. 11/08/18 02:52 Labs are unremarkable including lipase. Suspect chronic abdominal pain/flare of chronic pancreatitis, which is mild in nature. Patient feels better after medications, will be discharged with Phenergan suppositories to follow-up with her primary care. I have discussed with the patient there likely diagnosis, aftercare plan, follow-up plans and my usual and customary return precautions. They verbalized understanding of this. - Vital Signs Vital signs: Temp Pulse Resp BP Pulse Ox 98.7 F 76 16 92/58 L 99 11/08/18 00:00 11/08/18 00:00 11/08/18 00:00 11/08/18 00:00 11/08/18 00:00 - Laboratory Result Diagrams: 11/08/18 02:08 11/08/18 02:08 Laboratory results interpreted by me: 11/08/18 11/08/18 02:08 02:08 RDW 14.8 H Plt Count 141 L Chloride 116 H Carbon Dioxide 12 L AST 54 H ALT 76 H Lipase < 10.0 L Discharge - Discharge Clinical Impression: Chronic pancreatitis Qualifiers: Pancreatitis type: unspecified pancreatitis type Qualified Code(s): K86.1 - Other chronic pancreatitis Condition: Good Disposition: HOME, SELF-CARE Prescriptions: Promethazine HCl [Phenergan 25 mg Supp.rect] 1 supp MD Q6H #12 supp.rect Referrals: VANESSA PERALTA DO [Primary Care Provider] - Follow up as needed
[2018-11-08 02:21] LABS: ABSOLUTE EOSINOPHILS # (AUTO) 0.3 10^3/uL (0.0-0.6); ABSOLUTE LYMPHOCYTES (AUTO) 2.3 10^3/uL (0.5-4.7); ABSOLUTE MONOCYTES (AUTO) 0.3 10^3/uL (0.1-1.4); ABSOLUTE NEUT (AUTO) 4.5 10^3/uL (1.7-8.2); BASOPHILS % (AUTO) 0.2 % (0-2); EOSINOPHILS % (AUTO) 4.4 % (0-6); HEMOGLOBIN 12.8 g/dL (12.0-15.5); LYMPHOCYTES % (AUTO) 30.4 % (13-45); MEAN CORPUSCULAR HEMOGLOBIN 30.5 pg (27.0-33.4); MEAN CORPUSCULAR HGB CONC 33.7 g/dL (32.0-36.0); MEAN CORPUSCULAR VOLUME 90 fl (80-97); MONOCYTES % (AUTO) 4.5 % (3-13); PLATELET COUNT 141 10^3/uL (150-450); RED CELL DISTRIBUTION WIDTH 14.8 % (11.5-14.0); SEGMENTED NEUTROPHILS % (AUTO) 60.5 % (42-78); TOTAL CELLS COUNTED % (AUTO) 100 %; WHITE BLOOD COUNT 7.5 10^3/uL (4.0-10.5)
[2018-11-08 02:40] LABS: ALANINE AMINOTRANSFERASE 76 U/L (9-52); ALBUMIN 3.8 g/dL (3.5-5.0); ALKALINE PHOSPHATASE 118 U/L (38-126); ANION GAP 14 (5-19); ASPARTATE AMINO TRANSFERASE 54 U/L (14-36); BILIRUBIN,DIRECT 0.2 mg/dL (0.0-0.4); BILIRUBIN,TOTAL 0.5 mg/dL (0.2-1.3); BLOOD UREA NITROGEN 19 mg/dL (7-20); CALCIUM 8.6 mg/dL (8.4-10.2); CARBON DIOXIDE 12 mmol/L (22-30); CHLORIDE 116 mmol/L (98-107); GLUCOSE 89 mg/dL (75-110); LIPASE < 10.0 U/L (23-300); SODIUM 142.4 mmol/L (137-145); TOTAL PROTEIN 6.6 g/dL (6.3-8.2)
[2018-11-08 03:05] LABS: APPEARANCE,URINE CLOUDY; BILIRUBIN,URINE NEGATIVE (NEGATIVE); COLOR,URINE YELLOW; GLUCOSE, URINE NEGATIVE (NEGATIVE); KETONES,URINE NEGATIVE (NEGATIVE); LEUKOCYTE ESTERASE,URINE NEGATIVE (NEGATIVE); NITRITE,URINE NEGATIVE (NEGATIVE); PROTEIN,URINE NEGATIVE (NEGATIVE); URINE SPECIFIC GRAVITY 1.023; UROBILINOGEN,URINE NEGATIVE mg/dL (<2.0)
[2018-11-08 03:06] VITALS: BP 94/55
== END 2018-11-08 03:06 | disposition home or self-care (01) ==
LOC: ER 23:39
DX: K86.1 Other chronic pancreatitis (principal); R10.84 Generalized abdominal pain; R11.2 Nausea with vomiting, unspecified; I10 Essential (primary) hypertension; R47.01 Aphasia; R53.1 Weakness; Z87.891 Personal history of nicotine dependence
CPT/HCPCS: 99283; 96372; 36415; 83690; 85025; 81025; 80053; 81001; A9270; J2270; S0119

== ENCOUNTER 2018-11-28 14:47 | Emergency (ER) | payer MEDICARE, MEDICAID ==
[2018-11-28] MEDS ORDERED: NORMAL SALINE 1000 ML 1,000 ML IV ONE (14:54)
[2018-11-28] MEDS ORDERED: ONDANSETRON HCL INJ/PF 4 MG/2 ML SDV IV ONE (14:54)
--- NOTE | 2018-11-28 15:03 | ER Document Report ---
ED Medical Screen (RME) - General Chief Complaint: Abdominal Pain Stated Complaint: ABDOMINAL PAIN Time Seen by Provider: 11/28/18 14:52 Primary Care Provider: VANESSA PERALTA DO [Primary Care Provider] - Follow up as needed Mode of Arrival: Ambulatory Information source: Patient Notes: Patient presents with upper abdominal pain. History of pancreatitis. Reports nausea, vomiting and diarrhea. Exam: Abdomen soft, nontender with no guarding no rebound. I have greeted and performed a rapid initial assessment of this patient. A comprehensive ED assessment and evaluation of the patient, analysis of test results and completion of the medical decision making process will be conducted by additional ED providers. Dictation of this chart was performed using voice recognition software; therefore, there may be some unintended grammatical errors. TRAVEL OUTSIDE OF THE [place] IN LAST 30 DAYS: No - Related Data Allergies/Adverse Reactions: No Known Allergies Allergy (Verified 08/31/17 16:15) Past Medical History - Past Medical History Cardiac Medical History: Reports: Hx Hypertension Denies: Hx Coronary Artery Disease, Hx Heart Attack Pulmonary Medical History: Denies: Hx Asthma, Hx Bronchitis, Hx COPD, Hx Pneumonia, Hx Tuberculosis Neurological Medical History: Reports: Hx Cerebrovascular Accident - Last MRI on 03/14/2013 showed bilateral acute and chronic infarcts in the cerebral and cerebellar hemispheres. At that time a cardiac echo and carotid Doppler studies were negative., Hx Migraine. Denies: Hx Seizures Endocrine Medical History: Denies: Hx Diabetes Mellitus Type 1, Hx Diabetes Mellitus Type 2 Renal/ Medical History: Denies: Hx Peritoneal Dialysis GI Medical History: Reports: Hx Diverticulitis, Hx Pancreatitis Musculoskeltal Medical History: Denies Hx Arthritis Psychiatric Medical History: Reports: Hx Anxiety, Hx Bipolar Disorder, Hx Depression Past Surgical History: Reports: Hx Section - x1, Hx Cholecystectomy, Hx Pancreatic Surgery - stents. Denies: Hx Pacemaker - Immunizations Immunizations up to date: No Hx Diphtheria, Pertussis, Tetanus Vaccination: Yes Physical Exam - Vital signs Vitals: Temp Pulse Resp BP Pulse Ox 98.3 F 102 H 14 88/54 L 99 11/28/18 14:52 11/28/18 14:52 11/28/18 14:52 11/28/18 14:52 11/28/18 14:52 Course - Vital Signs Vital signs: Temp Pulse Resp BP Pulse Ox 98.3 F 102 H 14 88/54 L 99 05/16/19 14:52 11/28/18 14:52 11/28/18 14:52 11/28/18 14:52 11/28/18 14:52 Doctor's Discharge - Discharge Referrals: VANESSA PERALTA, [Primary Care Provider] - Follow up as needed
--- NOTE | 2018-11-28 15:44 | ER Document Report ---
ED GI/ - General Mode of Arrival: Ambulatory Information source: Patient, Relative TRAVEL OUTSIDE OF THE [place] IN LAST 30 DAYS: No - HPI Patient complains to provider of: Abdominal pain, Diarrhea, Vomiting Onset: This morning Timing/Duration: Gradual Quality of pain: Achy Pain Level: 4 Location: Epigastric Vaginal bleeding (Compared to normal period): None Associated symptoms: Diarrhea, Nausea, Vomiting. denies: Blood in emesis, Blood in stool, Constipation, Urinary hesitancy, Urinary frequency, Urinary retention, Urinary urgency <ORLIN YOUNG - Last Filed: 11/28/18 21:34> <DISHA COFFEY - Last Filed: 11/29/18 08:56> - General Chief Complaint: Abdominal Pain Stated Complaint: ABDOMINAL PAIN Time Seen by Provider: 11/28/18 14:52 Primary Care Provider: VANESSA PERALTA DO [Primary Care Provider] - Follow up as needed Notes: Patient presents complaining of nausea vomiting and diarrhea. Patient states she is also had some upper abdominal pain today. Patient denies any fever or urinary symptoms. Patient does have garbled speech due to CVA although is understandable. Family member at bedside does help with explaining patient's symptoms. Patient does states she has had chronic pancreatitis pain and this does feel similar. (ORLIN YOUNG) - Related Data Allergies/Adverse Reactions: No Known Allergies Allergy (Verified 08/31/17 16:15) Past Medical History - General Information source: Patient, Relative, [facility] Records - Social History Smoking Status: Former Smoker Frequency of alcohol use: None Drug Abuse: None Lives with: Family Family History: Reviewed & Not Pertinent, DM, Hypertension Patient has suicidal ideation: No Patient has homicidal ideation: No - Past Medical History Cardiac Medical History: Reports: Hx Hypertension Neurological Medical History: Reports: Hx Cerebrovascular Accident - Last MRI on 03/14/2013 showed bilateral acute and chronic infarcts in the cerebral and cerebellar hemispheres. At that time a cardiac echo and carotid Doppler studies were negative., Hx Migraine. Denies: Hx Seizures Endocrine Medical History: Reports: Hx Diabetes Mellitus Type 2 Renal/ Medical History: Denies: Hx Peritoneal Dialysis GI Medical History: Reports: Hx Diverticulitis, Hx Pancreatitis Musculoskeletal Medical History: Denies Hx Arthritis Psychiatric Medical History: Reports: Hx Anxiety, Hx Bipolar Disorder, Hx Depression Past Surgical History: Reports: Hx Section - x1, Hx Cholecystectomy, Hx Pancreatic Surgery - stents. Denies: Hx Pacemaker - Immunizations Immunizations up to date: No Hx Diphtheria, Pertussis, Tetanus Vaccination: Yes Hx Pneumococcal Vaccination: 07/16/00 <MASHA YOUNGRAVEN - Last Filed: 11/28/18 21:34> - Social History Smoking Status: Former Smoker <DISHA COFFEY - Last Filed: 11/29/18 08:56> Review of Systems - Review of Systems Constitutional: No symptoms reported. denies: Fever EENT: No symptoms reported Cardiovascular: No symptoms reported. denies: Chest pain, Syncope, Dizziness Respiratory: No symptoms reported. denies: Cough, Short of breath Gastrointestinal: Abdominal pain, Diarrhea, Nausea, Vomiting, Poor appetite. denies: Black stools, Rectal bleeding Genitourinary: No symptoms reported. denies: Dysuria, Flank pain Female Genitourinary: No symptoms reported Musculoskeletal: No symptoms reported. denies: Back pain Skin: No symptoms reported Hematologic/Lymphatic: No symptoms reported Neurological/Psychological: No symptoms reported <ORLIN YOUNG - Last Filed: 11/28/18 21:34> Physical Exam - General General appearance: Alert In distress: None - HEENT Head: Normocephalic, Atraumatic Eyes: Normal Conjunctiva: Normal Nasal: Normal Mouth/Lips: Normal Mucous membranes: Normal Neck: Normal, Supple. No: Lymphadenopathy - Respiratory Respiratory status: No respiratory distress Chest status: Nontender Breath sounds: Normal. No: Rales, Rhonchi, Stridor, Wheezing Chest palpation: Normal - Cardiovascular Rhythm: Regular Heart sounds: S1 appreciated, S2 appreciated - Abdominal Inspection: Striae Distension: No distension Bowel sounds: Normal Tenderness: Tender - Epigastric Organomegaly: No organomegaly - Back Back: Normal, Nontender. No: CVA tenderness - Extremities General upper extremity: Normal inspection, Nontender, Normal ROM General lower extremity: Normal inspection, Nontender, Normal ROM - Neurological Neuro grossly intact: Yes Cognition: Normal Speech: Dysarthria, Expressive aphasia - Psychological Associated symptoms: Normal affect, Normal mood - Skin Skin Temperature: Warm Skin Moisture: Dry Skin Color: Normal <ORLIN YOUNG - Last Filed: 11/28/18 21:34> - Vital signs Vitals: Temp Pulse Resp BP Pulse Ox 98.3 F 102 H 14 88/54 L 99 11/28/18 14:52 11/28/18 14:52 11/28/18 14:52 11/28/18 14:52 11/28/18 14:52 - General Notes: Garbled speech that is difficult to understand at times, family member at bedside is able to clarify. Patient is able to answer yes no questions easily (ORLIN YOUNG) Course - Laboratory Result Diagrams: 11/28/18 15:55 11/28/18 15:55 - Diagnostic Test Radiology reviewed: Reports reviewed <ORLIN YOUNG - Last Filed: 11/28/18 21:34> - Laboratory Result Diagrams: 11/28/18 15:55 11/28/18 15:55 <DISHA COFFEY - Last Filed: 11/29/18 08:56> - Re-evaluation Re-evalutation: 11/28/18 18:[address] Bowden regarding patient presentation. Recommends giving patient second liter of IV fluids, fentanyl, Pepcid as well as IV Toradol to help with her abdominal pain symptoms at this time. May consider imaging given patient's persistent pain as well as hypotension and history of CVA in the past. Patient does have documented hypotension on previous ER visits as well. 11/28/18 19:08 Patient's IV not working properly. Patient continues with blood pressure 79/47 at this time. RN at bedside for additional line placement. 11/28/18 21:[address] scan reviewed. Patient mildly hypotensive. Will finish patient's IV fluids perform orthostatics and then p.o. challenge patient. Bedside report and handoff given to CALLI Garay (ORLIN YOUNG) 11/28/18 23:07 I received patient from ANU Young. Patient was alert and oriented but her speech was difficult to understand due to previous CVA. She was resting comfortably in the bed in no acute distress. She denied any pain, lightheadedness, or any other symptoms. Orthostatic vital signs were done and were negative. Patient finished getting fluid resuscitation. At this time although patient is hypotensive she is stable and based on her body habitus and prior vital signs she is safe to go home. She was given strict return precautions. (DISHA COFFEY) - Vital Signs Vital signs: Temp Pulse Resp BP Pulse Ox 98 F 88 18 101/68 97 11/28/18 23:38 11/28/18 23:38 11/28/18 23:38 11/28/18 23:38 11/28/18 23:38 - Laboratory Laboratory results interpreted by me: 11/28/18 11/28/18 15:55 15:55 Hgb 11.5 L Hct 34.2 L RDW 15.0 H Chloride 115 H Carbon Dioxide 17 L Total Protein 5.8 L Albumin 3.2 L Lipase < 10.0 L Discharge <ORLIN YOUNG - Last Filed: 11/28/18 21:34> <DISHA COFFEY - Last Filed: 11/29/18 08:56> - Discharge Clinical Impression: Nausea vomiting and diarrhea Abdominal pain Qualifiers: Abdominal location: unspecified location Qualified Code(s): R10.9 - Unspecified abdominal pain Condition: Good Disposition: HOME, SELF-CARE Instructions: Abdominal Pain ([facility]) Additional Instructions: You were seen in the emergency department this evening for abdominal pain and nausea. Your work-up did not show any dangerous condition requiring need to be hospitalized or requiring surgery. Your blood pressure has been low which was concerning but because you are small a lot of times people your size have low blood pressure. We did testing of your blood pressure and pulse in various positions and there were no major changes indicating that you are dehydrated. It is unclear why you are having symptoms having but overall your work-up is very reassuring. If you become acutely lightheaded or dizzy, pass out, develop acute weakness, acute shortness of breath or severe chest pain, continued to have intractable nausea or vomiting, or have any other concerning symptoms please immediately return to the emergency department. Referrals: VANESSA PERALTA DO [Primary Care Provider] - Follow up as needed
[2018-11-28 16:20] LABS: ABSOLUTE EOSINOPHILS # (AUTO) 0.2 10^3/uL (0.0-0.6); ABSOLUTE LYMPHOCYTES (AUTO) 1.3 10^3/uL (0.5-4.7); ABSOLUTE MONOCYTES (AUTO) 0.5 10^3/uL (0.1-1.4); ABSOLUTE NEUT (AUTO) 5.6 10^3/uL (1.7-8.2); BASOPHILS % (AUTO) 0.6 % (0-2); EOSINOPHILS % (AUTO) 3.1 % (0-6); HEMATOCRIT 34.2 % (36.0-47.0); HEMOGLOBIN 11.5 g/dL (12.0-15.5); LYMPHOCYTES % (AUTO) 17.4 % (13-45); MEAN CORPUSCULAR HEMOGLOBIN 30.1 pg (27.0-33.4); MEAN CORPUSCULAR HGB CONC 33.6 g/dL (32.0-36.0); MEAN CORPUSCULAR VOLUME 90 fl (80-97); MONOCYTES % (AUTO) 6.2 % (3-13); PLATELET COUNT 189 10^3/uL (150-450); RED BLOOD COUNT 3.82 10^6/uL (3.72-5.28); SEGMENTED NEUTROPHILS % (AUTO) 72.7 % (42-78); TOTAL CELLS COUNTED % (AUTO) 100 %; WHITE BLOOD COUNT 7.6 10^3/uL (4.0-10.5)
[2018-11-28 16:32] LABS: ALANINE AMINOTRANSFERASE 49 U/L (9-52); ALBUMIN 3.2 g/dL (3.5-5.0); ALKALINE PHOSPHATASE 125 U/L (38-126); ANION GAP 10 (5-19); ASPARTATE AMINO TRANSFERASE 22 U/L (14-36); BILIRUBIN,DIRECT 0.2 mg/dL (0.0-0.4); BILIRUBIN,TOTAL 0.3 mg/dL (0.2-1.3); BLOOD UREA NITROGEN 13 mg/dL (7-20); CALCIUM 8.7 mg/dL (8.4-10.2); CARBON DIOXIDE 17 mmol/L (22-30); CHLORIDE 115 mmol/L (98-107); GLUCOSE 95 mg/dL (75-110); SODIUM 142.3 mmol/L (137-145); TOTAL PROTEIN 5.8 g/dL (6.3-8.2)
[2018-11-28 16:33] LABS: LIPASE < 10.0 U/L (23-300)
[2018-11-28 17:46] LABS: APPEARANCE,URINE CLEAR; BILIRUBIN,URINE NEGATIVE (NEGATIVE); COLOR,URINE YELLOW; GLUCOSE, URINE NEGATIVE (NEGATIVE); KETONES,URINE NEGATIVE (NEGATIVE); LEUKOCYTE ESTERASE,URINE NEGATIVE (NEGATIVE); NITRITE,URINE NEGATIVE (NEGATIVE); PROTEIN,URINE NEGATIVE (NEGATIVE); UROBILINOGEN,URINE NEGATIVE mg/dL (<2.0)
[2018-11-28] MEDS ORDERED: RINGERS SOLUTION,LACTATED 1,000 ML IV ONE (17:56)
[2018-11-28] MEDS ORDERED: KETOROLAC TROMETHAMINE INJ/PF 30 MG/1 ML SDV IV ONE (18:28)
[2018-11-28] MEDS ORDERED: FAMOTIDINE INJ/PF 20 MG/2 ML SDV IV ONE (18:28)
[2018-11-28] MEDS: FENTANYL CITRATE INJ/PF 100 MCG/2 ML AMPUL IV ONE ×2 (18:48→19:08)
--- NOTE | 2018-11-28 20:05 | EKG REPORT ---
SEVERITY:- NORMAL ECG - SINUS RHYTHM : Confirmed by: Sandeep Ji MD 28-Nov-2018 20:04:07
--- NOTE | 2018-11-28 21:03 | RADIOLOGY REPORT (SQ) ---
EXAM DESCRIPTION: XR CHEST 1 VIEW COMPLETED DATE/TME: 11/28/2018 18:42 CLINICAL HISTORY: 38 years Female upper abd pain COMPARISON: 01/04/2017. FINDINGS: The cardiomediastinal silhouette appears unremarkable. No consolidating infiltrates or pleural effusions. No pneumothorax. IMPRESSION: No acute abnormality is identified.
--- NOTE | 2018-11-28 21:10 | RADIOLOGY REPORT (SQ) ---
CT ABDOMEN PELVIS WITH IV CONTRAST HISTORY: Upper abdominal pain. Chronic pancreatitis. COMPARISON: 05/09/2018 TECHNIQUE: CT scan of the abdomen and pelvis was performed with IV contrast. This exam was performed according to our departmental dose-optimization program, which includes automated exposure control, adjustment of the mA and/or kV according to patient size and/or use of iterative reconstruction technique. FINDINGS: The lung bases are clear without pleural or pericardial effusions. No hiatal hernia. There has been a prior cholecystectomy. The liver, spleen, adrenal glands, and kidneys are normal. There are calcifications throughout the pancreas most prominent in the pancreatic head and uncinate process. No inflammatory stranding or pseudocyst is seen. The pelvic organs are normal. The colon is fluid-filled, suggesting a diarrheal illness. No small bowel obstruction. The appendix is normal. No intraperitoneal free fluid or free air is seen. The aorta is normal caliber and contains atherosclerotic calcifications. No acute bony findings are seen. IMPRESSION: 1. No evidence of acute pancreatitis or pseudocyst. Sequela of chronic pancreatitis. 2. Findings suggesting enterocolitis with a diarrheal illness.
[2018-11-28] MEDS ORDERED: ONDANSETRON ODT 4 MG TAB (6 TAB/ER DISP) PO PRN (23:10)
[2018-11-28 23:39] VITALS: BP 101/68
== END 2018-11-28 23:41 | disposition home or self-care (01) ==
LOC: ER 14:47
DX: R11.2 Nausea with vomiting, unspecified (principal); R19.7 Diarrhea, unspecified; R10.9 Unspecified abdominal pain; R10.10 Upper abdominal pain, unspecified; Z87.891 Personal history of nicotine dependence; I10 Essential (primary) hypertension; E11.9 Type 2 diabetes mellitus without complications
CPT/HCPCS: 93005; 99284; 96361; 96374; 96375; 36415; 83690; 84703; 85025; 80053; 81001; 84484; 71045; 74177; 93010; J1885; J2405; J7030; J7120; S0028; A9270; J3010

== ENCOUNTER → 2019-01-18 | Outpatient (CLI) | payer MEDICARE, MEDICAID ==
--- NOTE | 2019-01-18 16:22 | RADIOLOGY REPORT (SQ) ---
EXAM DESCRIPTION: HAND LEFT 3 VIEWS COMPLETED DATE/TIME: 01/18/2019 4:00 pm REASON FOR STUDY: FINGER PAIN LEFT COMPARISON: None. EXAM PARAMETERS: NUMBER OF VIEWS: Three views. TECHNIQUE: AP, lateral and oblique radiographic images acquired of the left hand. LIMITATIONS: Contracture of the hand, overlapping fingers FINDINGS: MINERALIZATION: Normal. BONES: No acute fracture or dislocation. No worrisome bone lesions. JOINTS: No effusions. SOFT TISSUES: No soft tissue swelling. No foreign body. OTHER: No other significant finding. IMPRESSION: No acute displaced fracture TECHNICAL DOCUMENTATION: JOB ID: [id number]- All Rights Reserved Reading location - IP/workstation name: [email or web address]
== END ==
LOC: RAD 15:40
PROVIDERS: ATTEND Nurse Practitioner Family
DX: M79.645 Pain in left finger(s) (principal)

== ENCOUNTER 2019-03-12 23:15 | Emergency (ER) | payer MEDICARE, MEDICAID ==
[2019-03-13] MEDS ORDERED: NORMAL SALINE 1000 ML 1,000 ML IV ONE (00:42)
--- NOTE | 2019-03-13 00:44 | ER Document Report ---
ED Medical Screen (RME) - General Chief Complaint: Difficulty Swallowing Stated Complaint: DIFFICULTY SWALLOWING Time Seen by Provider: 03/13/19 00:42 Primary Care Provider: VANESSA PERALTA DO [Primary Care Provider] - Follow up as needed Mode of Arrival: Ambulatory Information source: Friend Notes: 38-year-old female presented to ED for trouble swallowing not eaten in 3 days. Ex- is with her he states that when he went to give her her pills today she was choking on them and took about 45 minutes to swallow the pills. He states that he thought she was eating for the last 3 days but she was feeding her food to the dogs. He states that the roommate that lives with her said that she has been choking and gagging every time she tries to eat for the last for 5 days. She has a history of multiple strokes the last one was about a year and a half ago has a history of pancreatitis with surgery for the pancreas with drains and is not sure what else. He states she is a former smoker former alcoholic and former drug addict but has not does not do any of these at this time. Patient is alert but is very hard to understand what she says but the ex- is able to understand what she says. I have greeted and performed a rapid initial assessment of this patient. A comprehensive ED assessment and evaluation of the patient, analysis of test results and completion of medical decision making process will be conducted by an additional ED providers. TRAVEL OUTSIDE OF THE [place] IN LAST 30 DAYS: No - Related Data Allergies/Adverse Reactions: No Known Allergies Allergy (Verified 08/31/17 16:15) Past Medical History - Past Medical History Cardiac Medical History: Reports: Hx Hypertension Denies: Hx Coronary Artery Disease, Hx Heart Attack Pulmonary Medical History: Denies: Hx Asthma, Hx Bronchitis, Hx COPD, Hx Pneumonia, Hx Tuberculosis Neurological Medical History: Reports: Hx Cerebrovascular Accident - Last MRI on 03/14/2013 showed bilateral acute and chronic infarcts in the cerebral and cerebellar hemispheres. At that time a cardiac echo and carotid Doppler studies were negative., Hx Migraine. Denies: Hx Seizures Endocrine Medical History: Reports: Hx Diabetes Mellitus Type 2. Denies: Hx Diabetes Mellitus Type 1 Renal/ Medical History: Denies: Hx Peritoneal Dialysis GI Medical History: Reports: Hx Diverticulitis, Hx Pancreatitis Musculoskeltal Medical History: Denies Hx Arthritis Psychiatric Medical History: Reports: Hx Anxiety, Hx Bipolar Disorder, Hx Depression Past Surgical History: Reports: Hx Section - x1, Hx Cholecystectomy, Hx Pancreatic Surgery - stents. Denies: Hx Pacemaker - Immunizations Immunizations up to date: No Hx Diphtheria, Pertussis, Tetanus Vaccination: Yes Physical Exam - Vital signs Vitals: Temp Pulse Resp BP Pulse Ox 97.7 F 68 15 87/57 L 98 03/12/19 23:23 03/12/19 23:23 03/12/19 23:23 03/12/19 23:23 03/12/19 23:23 Course - Vital Signs Vital signs: Temp Pulse Resp BP Pulse Ox 97.7 F 68 15 87/57 L 98 03/12/19 23:23 03/12/19 23:23 03/12/19 23:23 03/12/19 23:23 03/12/19 23:23 Doctor's Discharge - Discharge Referrals: VANESSA PERALTA DO [Primary Care Provider] - Follow up as needed
--- NOTE | 2019-03-13 02:54 | RADIOLOGY REPORT (SQ) ---
CLINICAL HISTORY: dysphagia COMPARISON: None. TECHNIQUE: XR CHEST 2 VIEWS 03/13/2019 2:13 AM CDT FINDINGS: Cardiac silhouette is normal in size. Lungs are clear without consolidation, atelectasis, mass or edema. There is no pleural effusion. There is no pneumothorax. There are no acute osseous findings. IMPRESSION: Clear lungs.
[2019-03-13 03:14] LABS: ABSOLUTE BASOPHILS # (AUTO) 0.1 10^3/uL (0.0-0.2); ABSOLUTE EOSINOPHILS # (AUTO) 0.2 10^3/uL (0.0-0.6); ABSOLUTE LYMPHOCYTES (AUTO) 2.3 10^3/uL (0.5-4.7); ABSOLUTE MONOCYTES (AUTO) 0.6 10^3/uL (0.1-1.4); ABSOLUTE NEUT (AUTO) 4.6 10^3/uL (1.7-8.2); BASOPHILS % (AUTO) 1.1 % (0-2); EOSINOPHILS % (AUTO) 3.1 % (0-6); HEMATOCRIT 36.8 % (36.0-47.0); HEMOGLOBIN 12.4 g/dL (12.0-15.5); LYMPHOCYTES % (AUTO) 29.3 % (13-45); MEAN CORPUSCULAR HEMOGLOBIN 29.9 pg (27.0-33.4); MEAN CORPUSCULAR HGB CONC 33.8 g/dL (32.0-36.0); MEAN CORPUSCULAR VOLUME 88 fl (80-97); MONOCYTES % (AUTO) 7.6 % (3-13); PLATELET COUNT 144 10^3/uL (150-450); RED BLOOD COUNT 4.16 10^6/uL (3.72-5.28); RED CELL DISTRIBUTION WIDTH 14.5 % (11.5-14.0); SEGMENTED NEUTROPHILS % (AUTO) 58.9 % (42-78); TOTAL CELLS COUNTED % (AUTO) 100 %; WHITE BLOOD COUNT 7.7 10^3/uL (4.0-10.5)
--- NOTE | 2019-03-13 03:24 | RADIOLOGY REPORT (SQ) ---
EXAM DESCRIPTION: CT HEAD WITHOUT IV CONTRAST COMPLETED DATE/TME: 03/13/2019 02:12 CLINICAL HISTORY: 38 years Female, dysphagia, hx of stroke COMPARISON: CT, 05/09/18 TECHNIQUE: No contrast. Coronal and sagittal reformat. This exam was performed according to our departmental dose-optimization program, which includes automated exposure control, adjustment of the mA and/or kV according to patient size and/or use of iterative reconstruction technique. FINDINGS: Extensive multi-infarct pattern includes encephalomalacia/gliosis of bilateral frontoparietal lobes, right more than left and right occipital lobe with ex vacuo enlargement of the ventricular system, right more than left, and left inferior cerebellar lobe consistent with MRI from April 2018. Lacunar infarct of the left thalamus, stable. No hemorrhage. No mass, mass effect, or midline shift. Atherosclerosis. Brain and extra-axial structures appear otherwise intact. IMPRESSION: No acute findings. Multiple infarcts.
[2019-03-13 03:29] LABS: ALBUMIN 4.1 g/dL (3.5-5.0); ALKALINE PHOSPHATASE 102 U/L (38-126); ANION GAP 9 (5-19); ASPARTATE AMINO TRANSFERASE 20 U/L (14-36); BILIRUBIN,DIRECT 0.3 mg/dL (0.0-0.4); BILIRUBIN,TOTAL 0.6 mg/dL (0.2-1.3); BLOOD UREA NITROGEN 22 mg/dL (7-20); CALCIUM 9.5 mg/dL (8.4-10.2); CARBON DIOXIDE 21 mmol/L (22-30); CHLORIDE 112 mmol/L (98-107); GLUCOSE 83 mg/dL (75-110); POTASSIUM 4.1 mmol/L (3.6-5.0); TOTAL PROTEIN 6.8 g/dL (6.3-8.2)
--- NOTE | 2019-03-13 04:03 | ER Document Report ---
ED General - General Mode of Arrival: Ambulatory TRAVEL OUTSIDE OF THE [place] IN LAST 30 DAYS: No <SEBASTIAN ABDULLAHI - Last Filed: 03/13/19 04:06> <JASKARAN COLLINS - Last Filed: 03/14/19 13:40> - General Chief Complaint: Difficulty Swallowing Stated Complaint: DIFFICULTY SWALLOWING Time Seen by Provider: 03/13/19 00:42 Primary Care Provider: VANESSA PERALTA DO [Primary Care Provider] - Follow up as needed - [facility] Notes: Patient is a 38-year-old female, with a history of CVA, who presents to the emergency department for evaluation of difficulty swallowing. Patient has significant dysarthria as a result of prior strokes. Her ex- is the primary historian. He seems to understand her well. Evidently she has been choking on food for the last several days. She is capable of swallowing liquids. Is still urinating. She denies any pain. She states she is taking her medications as prescribed. According to ex-, besides a difficulty swallowing, neurologically she seems to be at baseline. She has contracture of her left upper extremity, left-sided weakness, significant dysarthria, and some facial asymmetry. (SEBASTIAN ABDULLAHI) - Related Data Allergies/Adverse Reactions: No Known Allergies Allergy (Verified 08/31/17 16:15) Past Medical History - General Information source: Patient, Friend - Social History Smoking Status: Former Smoker Frequency of alcohol use: Former alcoholic Drug Abuse: None, Other - Former heavy drug use Family History: Reviewed & Not Pertinent, DM, Hypertension Patient has suicidal ideation: No Patient has homicidal ideation: No - Past Medical History Cardiac Medical History: Reports: Hx Hypertension Denies: Hx Coronary Artery Disease, Hx Heart Attack Pulmonary Medical History: Denies: Hx Asthma, Hx Bronchitis, Hx COPD, Hx Pneumonia, Hx Tuberculosis Neurological Medical History: Reports: Hx Cerebrovascular Accident - Last MRI on 03/14/2013 showed bilateral acute and chronic infarcts in the cerebral and cerebellar hemispheres. At that time a cardiac echo and carotid Doppler studies were negative., Hx Migraine. Denies: Hx Seizures Endocrine Medical History: Reports: Hx Diabetes Mellitus Type 2. Denies: Hx Diabetes Mellitus Type 1 Renal/ Medical History: Denies: Hx Peritoneal Dialysis GI Medical History: Reports: Hx Diverticulitis, Hx Pancreatitis Musculoskeletal Medical History: Denies Hx Arthritis Psychiatric Medical History: Reports: Hx Anxiety, Hx Bipolar Disorder, Hx Depression Past Surgical History: Reports: Hx Section - x1, Hx Cholecystectomy, Hx Pancreatic Surgery - stents. Denies: Hx Pacemaker - Immunizations Immunizations up to date: No Hx Diphtheria, Pertussis, Tetanus Vaccination: Yes Hx Pneumococcal Vaccination: 07/16/00 <SEBASTIAN ABDULLAHI - Last Filed: 03/13/19 04:06> Review of Systems - Review of Systems Constitutional: No symptoms reported EENT: See HPI Cardiovascular: No symptoms reported Respiratory: No symptoms reported Gastrointestinal: No symptoms reported Genitourinary: No symptoms reported Musculoskeletal: No symptoms reported Skin: No symptoms reported Neurological/Psychological: See HPI <SEBASTIAN ABDULLAHI - Last Filed: 03/13/19 04:06> Physical Exam <SEBASTIAN ABDULLAHI - Last Filed: 03/13/19 04:06> - Vital signs Vitals: Temp Pulse Resp BP Pulse Ox 97.7 F 68 15 87/57 L 98 03/12/19 23:23 03/12/19 23:23 03/12/19 23:23 03/12/19 23:23 03/12/19 23:23 - Notes Notes: This is a 38-year-old female who appears much older than her stated age in no acute distress. Vital signs reviewed, please refer to chart. Head is normo cephalic, atraumatic. Pupils equal round, reactive to light. Neck is supple without meningismus. Heart is regular rate and rhythm. Lungs are clear to auscultation bilaterally. Abdomen is soft, nontender, normoactive bowel sounds throughout. Extremities without cyanosis, clubbing. Posterior calves are nontender. Peripheral pulses are equal. Skin is warm and dry. Patient is awake, alert, oriented x3. Patient with significant dysarthria, protrusion of the tongue with right deviation. Patient has 2+ out of 5 strength in the left upper extremity, 3+ out of 5 in the left lower extremity. She is hyperreflexive on the left as well. Sensation appears to be intact throughout. (SEBASTIAN ABDULLAHI) Course - Laboratory Result Diagrams: 03/13/19 02:59 03/13/19 02:59 - Diagnostic Test Radiology reviewed: Reports reviewed <SEBASTIAN ABDULLAHI - Last Filed: 03/13/19 04:06> - Laboratory Result Diagrams: 03/13/19 02:59 03/13/19 02:59 <JASKARAN COLLINS - Last Filed: 03/14/19 13:40> - Re-evaluation Re-evalutation: 03/13/19 04:09 Patient presents emergency department for evaluation. She had laboratory investigations initially ordered through triage. I did order a CT scan of the head as well as a chest x-ray, to evaluate her for aspiration. There is no signs of aspiration on her chest x-ray. Her CT scan shows extensive infarctions in the past, but is not significantly changed from prior study. At this point, I do believe this patient requires a formal swallow study. Radiology is not present to perform that at this time. I do believe she requires a full swallow study to safely evaluate whether or not this patient will need a feeding tube or dietary modifications to avoid aspiration. This finding was explained to the p atient as well as her ex-. They are amenable to staying here in the emergency department. (SEBASTIAN ABDULLAHI) 03/13/19 09:43 Patient swallow study showed no concern for aspiration. Will be discharged at this time (JASKARAN COLLINS) - Vital Signs Vital signs: Temp Pulse Resp BP Pulse Ox 98.0 F 68 15 105/59 L 99 03/13/19 10:23 03/12/19 23:23 03/13/19 10:23 03/13/19 10:23 03/13/19 10:23 - Laboratory Laboratory results interpreted by me: 03/13/19 03/13/19 03/13/19 02:59 02:59 08:20 RDW 14.5 H Plt Count 144 L Chloride 112 H Carbon Dioxide 21 L BUN 22 H Est GFR (MDRD) Non-Af 59 L Urine Protein 30 H Urine Ketones TRACE H Urine Blood SMALL H Urine Nitrite POSITIVE H Ur Leukocyte Esterase TRACE H - Diagnostic Test Radiology results interpreted by me: 03/13/19 04:14 03/13/19 02:59 03/13/19 02:59 MCV 88 fl (80-97) 03/13/19 02:59 MCH 29.9 pg (27.0-33.4) 03/13/19 02:59 MCHC 33.8 g/dL (32.0-36.0) 03/13/19 02:59 RDW 14.5 % (11.5-14.0) H 03/13/19 02:59 Seg Neutrophils % 58.9 % (42-78) 03/13/19 02:59 Chloride 112 mmol/L (98-107) H 03/13/19 02:59 Carbon Dioxide 21 mmol/L (22-30) L 03/13/19 02:59 Anion Gap 9 (5-19) 03/13/19 02:59 Est GFR ( Amer) > 60 (>60) 03/13/19 02:59 Glucose 83 mg/dL (75-110) 03/13/19 02:59 Calcium 9.5 mg/dL (8.4-10.2) 03/13/19 02:59 Total Bilirubin 0.6 mg/dL (0.2-1.3) 03/13/19 02:59 AST 20 U/L (14-36) 03/13/19 02:59 Alkaline Phosphatase 102 U/L (38-126) 03/13/19 02:59 Total Protein 6.8 g/dL (6.3-8.2) 03/13/19 02:59 Albumin 4.1 g/dL (3.5-5.0) 03/13/19 02:59 03/13/19 04:[address] 03/13/19 02:12 IMPRESSION: No acute findings. Multiple infarcts. Chest X-Ray 03/13/19 02:13 IMPRESSION: Clear lungs. (SEBASTIAN ABDULLAHI) Discharge <SEBASTIAN ABDULLAHI M - Last Filed: 03/13/19 04:06> <JASKARAN COLLINS - Last Filed: 03/14/19 13:40> - Discharge Clinical Impression: Dysphagia as late effect of cerebrovascular accident (CVA) Condition: Stable Disposition: HOME, SELF-CARE Referrals: VANESSA PERALTA DO [Primary Care Provider] - Follow up as needed
[2019-03-13 09:03] LABS: APPEARANCE,URINE SLIGHTLY-CLOUDY; BILIRUBIN,URINE NEGATIVE (NEGATIVE); COLOR,URINE AMBER; GLUCOSE, URINE NEGATIVE (NEGATIVE); KETONES,URINE TRACE mg/dL (NEGATIVE); LEUKOCYTE ESTERASE,URINE TRACE (NEGATIVE); NITRITE,URINE POSITIVE (NEGATIVE); PROTEIN,URINE 30 mg/dL (NEGATIVE); URINE SPECIFIC GRAVITY 1.029; UROBILINOGEN,URINE NEGATIVE mg/dL (<2.0)
--- NOTE | 2019-03-13 09:59 | RADIOLOGY REPORT (SQ) ---
EXAM DESCRIPTION: ADA SWALLOW COMPLETED DATE/TIME: 03/13/2019 9:43 am REASON FOR STUDY: Dysphasia history of stroke COMPARISON: None. TECHNIQUE: Videofluoroscopic swallowing examination was performed in conjunction with speech patholo gy. Videofluoroscopic imaging was obtained and reviewed and these are the findings: RADIATION DOSE: Fluoro time 3.26 minutes 1 images saved to PACS. LIMITATIONS: None FINDINGS: The patient was brought into the fluoro room and placed upright on a modified barium swall ow chair. The patient was then given multiple consistencies mixed with barium to swallow under live fluoroscopic video guidance. According to the Speech Pathologist there was no penetration or aspirat ion. Please refer to the speech pathology report for further details. IMPRESSION: NO EVIDENCE OF PENETRATION OR ASPIRATION. PLEASE SEE SPEECH PATHOLOGIST REPORT FOR OTHER FINDINGS AND RECOMMENDATIONS. COMMENT: None Quality ID [id number]: Final reports for procedures using fluoroscopy that document radiation exposure brent kate, or exposure time and number of fluorographic images (if radiation exposure indices are not avail able) TECHNICAL DOCUMENTATION: JOB ID: [id number] [employer]- All Rights Reserved Reading location - IP/workstation name: [email or web address]
[2019-03-13 11:08] VITALS: BP 105/59
--- NOTE | 2019-03-14 14:41 | ST Modified Barium Swallow ---
Recommendation - Recommendations Recommendations: Recommend thin liquids and puree solids. Medical Diagnoses - Medical Diagnoses Medical Diagnosis Description & ICD-10 Code(s): difficulty swallowing Other Medical Diagnoses/Co-Morbidities: history of CVA ST Modified Barium Swallow - General Date: 03/13/19 Date of Onset: 03/13/19 - History -: Medical - Patient presented to ED with difficulty swallowing, and reported "choking on solids". Limited medical history available. Patient does have history of CVA. Medications: not provided by patient Allergies: none reported - Functional Status Prior Functional Status: INDEPENDENT: feeding - Subjective Patient/caregiver goal(s): improve intake, r/o aspiration Speech Intelligibility: Severely dysarthric Current symptoms: Poor intake, Coughing Pain: Patient reports, 0/5 - Objective Assessment: Upright, Left Lateral - Food Trials Used Food trials used: Thin liquids, Pureed, Regular The patient: Required Assist - Assessment Mastication: Effortful - unable to effectively masticate for magaly cracker trial Oral stage: Piecemeal Deglutition - Pharyngeal Stage Pre-swallow pooling in valleculae: None Pre-Swallow pooling in pyriforms: None Post-swallow residulas vallecular: None Post-Swallow residuals in pyriforms: None - Fall Risk Assessment Medications/Conditions that increase fall risks include: Antidepressants, sedatives, anti-arrhythmic, diuretic, benzodiazipenes, neuroleptics. BP regulation problems, cardiac problems, balance or gait deficits, neurological problems. Fall Risk Actions Taken: No action needed - Behavioral Observations During evaluation process patient: was cooperative - Treatment / Educational Needs: Treatment/Education Needs: Treatment consisted of patient education on the role of the Speech Pathologist. Patient's plan of care and golas were communicated as well as scheduling and attendance policies. Recommendations for initial home program were shared. Patient demonstrated understanding and verbalized agreement. - Impression/Summary Laryngeal Penetration: No Tracheal Aspiration: no Patient presents with: Oral-Pharyngeal dysph., Mild-Moderate Risk of Aspiration: Minimal Evaluation and Findings: Patient demonstrated adequate pharyngeal function. Patient was seen to have difficulty with magaly cracker texture, refused second trial due to difficulty chewing and swallowing. No difficulty seen with liquids or purees. - Recommendations Solid diet recommendations: Pureed Liquid Diet Modification: Thin Strict aspiration precautions: Yes Dysphagia therapy with FUR LINER: no Recommended techniques: Fully Upright During Meal Supervision: requires assistance Information, Precautions and Recommendations: Patient (Verbal) - Time Total Time: 30 - Plan of Care Strategies to optimize patient understanding include:: ongoing assessment of educational needs, implementation of educational strategies, and re-education. - - -: Thank you for the opportunity to work with this patient and his/her family. Should you have any questions about this patient's plan or progress, I can be reached at [phone].
== END 2019-03-13 10:40 | disposition home or self-care (01) ==
LOC: ER 23:15
DX: I69.30 Unspecified sequelae of cerebral infarction (principal); R13.10 Dysphagia, unspecified
CPT/HCPCS: 99284; 96360; 96361; 36415; 85025; 80053; 81001; 71046; 74230; 70450; 92611; J7030

== ENCOUNTER 2019-05-10 17:21 | Emergency (ER) | payer MEDICARE, MEDICAID ==
--- NOTE | 2019-05-10 17:32 | ER Document Report ---
ED Medical Screen (RME) - General Chief Complaint: Breast Lump Stated Complaint: SORE THROAT Time Seen by Provider: 05/10/19 17:25 Primary Care Provider: VANESSA PERALTA DO [Primary Care Provider] - Follow up as needed Information source: Patient Cannot obtain history due to: Other - speech/hx cva Notes: Patient presents complaining of left breast tenderness swelling and redness for the past 2 days. Patient also complains of sore throat. I have greeted and performed a rapid initial assessment of this patient. A comprehensive ED assessment and evaluation of the patient, analysis of test results and completion of the medical decision making process will be conducted by additional ED providers. TRAVEL OUTSIDE OF THE [place] IN LAST 30 DAYS: No - Related Data Allergies/Adverse Reactions: No Known Allergies Allergy (Verified 08/31/17 16:15) Past Medical History - Social History Chew tobacco use (# tins/day): No Frequency of alcohol use: None Drug Abuse: None - Past Medical History Cardiac Medical History: Reports: Hx Hypertension Denies: Hx Coronary Artery Disease, Hx Heart Attack Pulmonary Medical History: Denies: Hx Asthma, Hx Bronchitis, Hx COPD, Hx Pneumonia, Hx Tuberculosis Neurological Medical History: Reports: Hx Cerebrovascular Accident - Last MRI on 03/14/2013 showed bilateral acute and chronic infarcts in the c, Hx Migraine. Denies: Hx Seizures Endocrine Medical History: Reports: Hx Diabetes Mellitus Type 2. Denies: Hx Diabetes Mellitus Type 1 Renal/ Medical History: Denies: Hx Peritoneal Dialysis GI Medical History: Reports: Hx Diverticulitis, Hx Pancreatitis Musculoskeltal Medical History: Denies Hx Arthritis Psychiatric Medical History: Reports: Hx Anxiety, Hx Bipolar Disorder, Hx Depression Past Surgical History: Reports: Hx Section - x1, Hx Cholecystectomy, Hx Pancreatic Surgery - stents. Denies: Hx Pacemaker - Immunizations Immunizations up to date: No Hx Diphtheria, Pertussis, Tetanus Vaccination: Yes Physical Exam - Vital signs Vitals: Temp Pulse Resp BP Pulse Ox 98.5 F 69 16 96/53 L 99 05/10/19 17:24 05/10/19 17:24 05/10/19 17:24 05/10/19 17:24 05/10/19 17:24 - General Notes: Left breast tenderness, swelling with erythema near the nipple worrisome for possible abscess Course - Vital Signs Vital signs: Temp Pulse Resp BP Pulse Ox 98.5 F 69 16 96/53 L 99 05/10/19 17:24 05/10/19 17:24 05/10/19 17:24 05/10/19 17:24 05/10/19 17:24 Doctor's Discharge - Discharge Referrals: VANESSA PERALTA DO [Primary Care Provider] - Follow up as needed
[2019-05-10 18:34] LABS: ABSOLUTE BASOPHILS # (AUTO) 0.1 10^3/uL (0.0-0.2); ABSOLUTE EOSINOPHILS # (AUTO) 0.3 10^3/uL (0.0-0.6); ABSOLUTE LYMPHOCYTES (AUTO) 1.3 10^3/uL (0.5-4.7); ABSOLUTE MONOCYTES (AUTO) 0.7 10^3/uL (0.1-1.4); ABSOLUTE NEUT (AUTO) 7.3 10^3/uL (1.7-8.2); BASOPHILS % (AUTO) 0.6 % (0-2); EOSINOPHILS % (AUTO) 2.6 % (0-6); HEMATOCRIT 33.4 % (36.0-47.0); HEMOGLOBIN 10.9 g/dL (12.0-15.5); LYMPHOCYTES % (AUTO) 13.6 % (13-45); MEAN CORPUSCULAR HEMOGLOBIN 29.3 pg (27.0-33.4); MEAN CORPUSCULAR HGB CONC 32.5 g/dL (32.0-36.0); MEAN CORPUSCULAR VOLUME 90 fl (80-97); MONOCYTES % (AUTO) 7.5 % (3-13); PLATELET COUNT 193 10^3/uL (150-450); RED CELL DISTRIBUTION WIDTH 15.6 % (11.5-14.0); SEGMENTED NEUTROPHILS % (AUTO) 75.7 % (42-78); TOTAL CELLS COUNTED % (AUTO) 100 %; WHITE BLOOD COUNT 9.6 10^3/uL (4.0-10.5)
[2019-05-10 18:50] LABS: ANION GAP 12 (5-19); BLOOD UREA NITROGEN 14 mg/dL (7-20); CALCIUM 8.4 mg/dL (8.4-10.2); CARBON DIOXIDE 17 mmol/L (22-30); CHLORIDE 112 mmol/L (98-107); GLUCOSE 80 mg/dL (75-110); POTASSIUM 4.3 mmol/L (3.6-5.0)
--- NOTE | 2019-05-10 18:51 | ER Document Report ---
ED General - General Chief Complaint: Breast Lump Stated Complaint: SORE THROAT Time Seen by Provider: 05/10/19 17:25 Primary Care Provider: AUBREY NUÑEZ MD [ACTIVE STAFF] - 05/12/19 VANESSA PERALTA DO [Primary Care Provider] - Follow up as needed TRAVEL OUTSIDE OF THE [place] IN LAST 30 DAYS: No - HPI Notes: 38-year-old female presents with 2 complaints. Note history is difficult given her significant dysarthria, history also comes from her daughter. 2 days gradual onset left areolar redness and tenderness without drainage. Remote history of prior breast abscess. No fever, chills or sweats. Also complains of sore throat, spots in the left side. Gradual onset, associated runny nose congestion. She denies to me any history of MRSA abscess in the past. Moderate intensity, gradual onset, no history of diabetes. 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 - Related Data Allergies/Adverse Reactions: No Known Allergies Allergy (Verified 08/31/17 16:15) Past Medical History - General Information source: Patient - Social History Smoking Status: Never Smoker Chew tobacco use (# tins/day): No Frequency of alcohol use: None Drug Abuse: None Family History: Reviewed & Not Pertinent, DM, Hypertension Patient has suicidal ideation: No Patient has homicidal ideation: No - Medical History Notes: Includes prior CVA - Past Medical History Cardiac Medical History: Reports: Hx Hypertension Denies: Hx Coronary Artery Disease, Hx Heart Attack Pulmonary Medical History: Denies: Hx Asthma, Hx Bronchitis, Hx COPD, Hx Pneumonia, Hx Tuberculosis Neurological Medical History: Reports: Hx Cerebrovascular Accident - Last MRI on 03/14/2013 showed bilateral acute and chronic infarcts in the c, Hx Migraine. Denies: Hx Seizures Endocrine Medical History: Reports: Hx Diabetes Mellitus Type 2. Denies: Hx Diabetes Mellitus Type 1 Renal/ Medical History: Denies: Hx Peritoneal Dialysis GI Medical History: Reports: Hx Diverticulitis, Hx Gastroesophageal Reflux Disease, Hx Pancreatitis Musculoskeletal Medical History: Denies Hx Arthritis Psychiatric Medical History: Reports: Hx Anxiety, Hx Bipolar Disorder, Hx Depression Past Surgical History: Reports: Hx Section - x1, Hx Cholecystectomy, Hx Pancreatic Surgery - stents. Denies: Hx Pacemaker - Immunizations Immunizations up to date: No Hx Diphtheria, Pertussis, Tetanus Vaccination: Yes Hx Pneumococcal Vaccination: 07/16/00 Review of Systems - Review of Systems Notes: Review of systems as in the history of present illness, otherwise negative x 10 systems. Physical Exam - Vital signs Vitals: Temp Pulse Resp BP Pulse Ox 98.5 F 69 16 96/53 L 99 05/10/19 17:24 05/10/19 17:24 05/10/19 17:24 05/10/19 17:24 05/10/19 17:24 - Notes Notes: General: Well developed . HEENT: Normocephalic, atraumatic. Pupils equal round reactive to light. No JVD. Pharyngeal injection, no tonsillar purulence, no anterior cervical adenopathy. Chest: No trauma. Respiratory: Good air exchange, normal excursion. Cardiac: Regular rhythm. No murmurs or gallops. Abdomen: Soft, benign. Nondistended. Nontender. Back: No asymmetry or gross abnormality. Motor: Grossly normal power and tone. Except left upper extremity Neurologic: Alert, nonfocal. Cranial nerves II-12 are intact. Sensation intact. Left upper extremity contractures noted. Vascular: Well perfused. Normal peripheral pulses. Skin: No petechiae or purpura. Breast: Chaperoned breast examination shows some induration approximately 2 x 1/2 cm in the left inferior medial areolar region. Course - Re-evaluation Re-evalutation: 05/10/19 18:50 Appearing female likely viral URI associated early breast abscess versus cellulitis. Patient was seen by provider in triage was ordered extensive laboratory evaluation, this is reviewed and is unremarkable,, normal CBC, normal chemistries, negative strep. Ultrasound is currently pending. 05/10/19 20:59 Labs are reviewed, unremarkable. Ultrasound shows evolving abscess. Patient treated with oral antibiotics and prescription for the same, referred to [facility] as an outpatient for evaluation. Return if any worsening. - Vital Signs Vital signs: Temp Pulse Resp BP Pulse Ox 98.5 F 69 16 96/53 L 99 05/10/19 17:24 05/10/19 17:24 05/10/19 17:24 05/10/19 17:24 05/10/19 17:24 - Laboratory Result Diagrams: 05/10/19 18:20 05/10/19 18:20 Laboratory results interpreted by me: 05/10/19 05/10/19 18:20 18:20 RBC 3.70 L Hgb 10.9 L Hct 33.4 L RDW 15.6 H Chloride 112 H Carbon Dioxide 17 L Discharge - Discharge Clinical Impression: Breast abscess Condition: Stable Disposition: HOME, SELF-CARE Instructions: Abscess ([facility]) Prescriptions: Sulfamethoxazole/Trimethoprim [Bactrim Ds Tablet] 1 each PO Q12 7 Days #14 tablet Cephalexin Monohydrate [Keflex 500 mg Capsule] 500 mg PO Q6H 7 Days #28 capsule Referrals: VANESSA PERALTA DO [Primary Care Provider] - Follow up as needed AUBREY NUÑEZ MD [ACTIVE STAFF] - 05/12/19
--- NOTE | 2019-05-10 20:25 | RADIOLOGY REPORT (SQ) ---
US BREAST UNILATERAL LIMITED EXAM DATE: 05/10/2019 5:30 PM CDT HISTORY: Left breast swelling, query abscess. COMPARISON: None. TECHNIQUE: Randolph-scale and color Doppler images of the left breast were obtained. FINDINGS: Images through the left breast at the area of clinical concern demonstrate a complex heterogeneous well-circumscribed area measuring 1.6 x 1.1 x 1.9 cm with surrounding color Doppler blood flow and overlying subcutaneous edema. IMPRESSION: Possible 2 cm abscess in the left breast at the area of clinical concern. Please note this is a very limited study of the breast parenchyma, and further workup with dedicated breast imaging, possibly including mammography and/or diagnostic workup, should be performed by a dedicated breast radiologist.
[2019-05-10 21:43] VITALS: BP 108/58
== END 2019-05-10 21:15 | disposition home or self-care (01) ==
LOC: ER 17:21
DX: N61.1 Abscess of the breast and nipple (principal); J02.9 Acute pharyngitis, unspecified; R47.1 Dysarthria and anarthria; I10 Essential (primary) hypertension; E11.9 Type 2 diabetes mellitus without complications
CPT/HCPCS: 36415; 76642; 80048; 85025; 87070; 87880; 99284

== ENCOUNTER 2019-06-06 15:21 | Emergency (ER) | payer MEDICARE, MEDICAID ==
--- NOTE | 2019-06-06 15:30 | ER Document Report ---
ED Medical Screen (RME) - General Chief Complaint: S/S of Possible Stroke Stated Complaint: POSSIBLE STROKE Time Seen by Provider: 06/06/19 15:26 Primary Care Provider: VANESSA PERALTA DO [Primary Care Provider] - Follow up as needed TRAVEL OUTSIDE OF THE [place] IN LAST 30 DAYS: No - HPI Notes: 06/06/19 15:29 Patient is a 38-year-old female with a history of CVA with left-sided deficits and contraction of her left hand who presents with daughter complaining of numbness to her left arm and left lower leg that started just over an hour ago. Patient states that her contraction is also worse in her left hand. Daughter is present and states that she has not been able to ambulate because of weakness when she normally is able to. Patient is most concerned about another stroke at this time. Denies drug allergies. Stroke alert reviewed and updated with Dr. Jay. Pt gone to CT. I have treated and performed a rapid initial assessment of this patient. A comprehensive ED assessment and evaluation of the patient, analysis of test results and completion of medical decision making process will be conducted by additional ED providers. PHYSICAL EXAMINATION: GENERAL: Well-appearing, well-nourished and in no acute distress. A&Ox4. Answers questions appropriately. Neuro: Patient does have decreased sensation left upper extremity and left lower extremity. Her speech is stuttered which is baseline for her per daughter. Face does appear symmetric and her left hand is contracted. It is difficult to perform an adequate NIH when she already has left-sided deficits in the left side is currently being affected again. - Related Data Allergies/Adverse Reactions: No Known Allergies Allergy (Verified 08/31/17 16:15) Past Medical History - Past Medical History Cardiac Medical History: Reports: Hx Hypertension Denies: Hx Coronary Artery Disease, Hx Heart Attack Pulmonary Medical History: Denies: Hx Asthma, Hx Bronchitis, Hx COPD, Hx Pneumonia, Hx Tuberculosis Neurological Medical History: Reports: Hx Cerebrovascular Accident - Last MRI on 03/14/2013 showed bilateral acute and chronic infarcts in the c, Hx Migraine. Denies: Hx Seizures Endocrine Medical History: Reports: Hx Diabetes Mellitus Type 2. Denies: Hx Diabetes Mellitus Type 1 Renal/ Medical History: Denies: Hx Peritoneal Dialysis GI Medical History: Reports: Hx Diverticulitis, Hx Gastroesophageal Reflux Disease, Hx Pancreatitis Musculoskeltal Medical History: Denies Hx Arthritis Psychiatric Medical History: Reports: Hx Anxiety, Hx Bipolar Disorder, Hx Depression Past Surgical History: Reports: Hx Section - x1, Hx Cholecystectomy, Hx Pancreatic Surgery - stents. Denies: Hx Pacemaker - Immunizations Immunizations up to date: No Hx Diphtheria, Pertussis, Tetanus Vaccination: Yes Doctor's Discharge - Discharge Referrals: VANESSA PERALTA DO [Primary Care Provider] - Follow up as needed
--- NOTE | 2019-06-06 16:10 | RADIOLOGY REPORT (SQ) ---
EXAM DESCRIPTION: CT HEAD WITHOUT COMPLETED DATE/TIME: 06/06/2019 3:40 pm REASON FOR STUDY: stroke alert COMPARISON: CT of the head without contrast from 03/13/2019. TECHNIQUE: Axial images acquired through the brain without intravenous contrast. Images reviewed wi th bone, brain and subdural windows. Additional sagittal and coronal reconstructions were generated. Images stored on PACS. All CT scanners at this facility use dose modulation, iterative reconstruction, and/or weight based d osing when appropriate to reduce radiation dose to as low as reasonably achievable (ALARA). [facility]: Dose Right [facility]: CareDose [facility]: Dose Right [facility]: Teradose 4D [facility]: C2cube RADIATION DOSE: CT Rad equipment meets quality standard of care and radiation dose reduction techniq ues were employed. CTDIvol: 53.2 mGy. DLP: 991 mGy-cm. mGy. LIMITATIONS: None. FINDINGS: Sequela of chronic ischemia with areas of encephalomalacia and gliosis in the bilateral fr ontoparietal and occipital lobes associated with ex vacuo dilatation of the lateral ventricles. Ther e is also a chronic left cerebellar infarct. There is no acute intracranial hemorrhage, vascular territorial infarct, extra-axial fluid collection , mass effect or midline shift. There is no effacement of the basal subarachnoid cisterns. The meek -white matter differentiation outside the areas of encephalomalacia and gliosis is preserved. The caliber the ventricles is unchanged. There is no calvarial fracture. The orbits and globes are intact. The paranasal sinuses and the mast oid air cells are clear. IMPRESSION: Extent the sequela of chronic ischemia. There is no acute intracranial abnormality. EVIDENCE OF ACUTE STROKE: NO. COMMENT: Quality ID # [id number]: Final reports with documentation of one or more dose reduction techniques (e.g., Automated exposure control, adjustment of the mA and/or kV according to patient size, use of iterative reconstruction technique) TECHNICAL DOCUMENTATION: JOB ID: [id number] [employer]- All Rights Reserved Reading location - IP/workstation name: [email or web address]
[2019-06-06 16:29] LABS: ABSOLUTE BASOPHILS # (AUTO) 0.1 10^3/uL (0.0-0.2); ABSOLUTE EOSINOPHILS # (AUTO) 0.3 10^3/uL (0.0-0.6); ABSOLUTE LYMPHOCYTES (AUTO) 2.2 10^3/uL (0.5-4.7); ABSOLUTE MONOCYTES (AUTO) 0.8 10^3/uL (0.1-1.4); ABSOLUTE NEUT (AUTO) 6.7 10^3/uL (1.7-8.2); BASOPHILS % (AUTO) 0.8 % (0-2); EOSINOPHILS % (AUTO) 3.3 % (0-6); HEMATOCRIT 34.3 % (36.0-47.0); HEMOGLOBIN 11.5 g/dL (12.0-15.5); INTERNATIONAL RATION (INR) 1.15; LYMPHOCYTES % (AUTO) 21.5 % (13-45); MEAN CORPUSCULAR HGB CONC 33.5 g/dL (32.0-36.0); MEAN CORPUSCULAR VOLUME 90 fl (80-97); MONOCYTES % (AUTO) 8.1 % (3-13); PLATELET COUNT 176 10^3/uL (150-450); PROTHROMBIN TIME 14.7 SEC (11.4-15.4); RED BLOOD COUNT 3.83 10^6/uL (3.72-5.28); RED CELL DISTRIBUTION WIDTH 15.4 % (11.5-14.0); SEGMENTED NEUTROPHILS % (AUTO) 66.3 % (42-78); TOTAL CELLS COUNTED % (AUTO) 100 %; WHITE BLOOD COUNT 10.1 10^3/uL (4.0-10.5)
[2019-06-06 16:30] LABS: PARTIAL THROMBOPLASTIN TIME 25.8 SEC (23.5-35.8)
[2019-06-06 16:38] LABS: ALBUMIN 4.2 g/dL (3.5-5.0); ALKALINE PHOSPHATASE 83 U/L (38-126); ANION GAP 11 (5-19); ASPARTATE AMINO TRANSFERASE 23 U/L (14-36); BILIRUBIN,DIRECT 0.1 mg/dL (0.0-0.4); BILIRUBIN,TOTAL 0.3 mg/dL (0.2-1.3); BLOOD UREA NITROGEN 24 mg/dL (7-20); CALCIUM 9.2 mg/dL (8.4-10.2); CARBON DIOXIDE 16 mmol/L (22-30); CHLORIDE 116 mmol/L (98-107); GLUCOSE 93 mg/dL (75-110); POTASSIUM 4.6 mmol/L (3.6-5.0); TOTAL PROTEIN 7.1 g/dL (6.3-8.2)
--- NOTE | 2019-06-06 16:46 | ER Document Report ---
ED Neuro Symptoms/Deficit - General Chief Complaint: S/S of Possible Stroke Stated Complaint: POSSIBLE STROKE Time Seen by Provider: 06/06/19 15:26 Primary Care Provider: VANESSA PERALTA DO [Primary Care Provider] - Follow up as needed Mode of Arrival: Ambulatory Information source: Patient, Relative - pt with prior CVA approx 2 years ago with onset this afternoon at 1430 with some increased weakness of her L leg (pt. with prior L-sided weakness and numbness deficits and slurred speech) and inability to open her L hand (has contracture in it but could open prior to this afternoon. TRAVEL OUTSIDE OF THE [place] IN LAST 30 DAYS: No - Related Data Allergies/Adverse Reactions: No Known Allergies Allergy (Verified 08/31/17 16:15) Past Medical History - General Information source: Patient, Relative - Social History Smoking Status: Unknown if Ever Smoked Family History: Reviewed & Not Pertinent, DM, Hypertension - Past Medical History Cardiac Medical History: Reports: Hx Hypertension Denies: Hx Coronary Artery Disease, Hx Heart Attack Pulmonary Medical History: Denies: Hx Asthma, Hx Bronchitis, Hx COPD, Hx Pneumonia, Hx Tuberculosis Neurological Medical History: Reports: Hx Cerebrovascular Accident - Last MRI on 03/14/2013 showed bilateral acute and chronic infarcts in the c, Hx Migraine. D enies: Hx Seizures Endocrine Medical History: Reports: Hx Diabetes Mellitus Type 2. Denies: Hx Diabetes Mellitus Type 1 Renal/ Medical History: Denies: Hx Peritoneal Dialysis GI Medical History: Reports: Hx Diverticulitis, Hx Gastroesophageal Reflux Disease, Hx Pancreatitis Musculoskeletal Medical History: Denies Hx Arthritis Psychiatric Medical History: Reports: Hx Anxiety, Hx Bipolar Disorder, Hx Depression Past Surgical History: Reports: Hx Section - x1, Hx Cholecystectomy, Hx Pancreatic Surgery - stents. Denies: Hx Pacemaker - Immunizations Immunizations up to date: No Hx Diphtheria, Pertussis, Tetanus Vaccination: Yes Hx Pneumococcal Vaccination: 07/16/00 Review of Systems - Review of Systems Constitutional: No symptoms reported EENT: No symptoms reported Cardiovascular: No symptoms reported Gastrointestinal: No symptoms reported Neurological/Psychological: See HPI, Weakness - L leg Physical Exam - General General appearance: Appears well In distress: None - pt is difficult to understand -- her daughter is helping us with that - HEENT Head: Normocephalic Pupils: PERRL Pharynx: Normal Neck: Normal - Respiratory Respiratory status: No respiratory distress Breath sounds: Normal - Cardiovascular Rhythm: Regular Heart sounds: Normal auscultation Murmur: No - Extremities General upper extremity: Other - there is a contracture of the pt's L fist that she is unable to open. General lower extremity: Other - there is some weakness of her L leg compared to the R which she says is new from prior cva - Neurological Neuro grossly intact: No - pt. with deficits from prior CVA Cognition: Normal Orientation: AAOx4 Speech: Dysarthria - but this is not new Course - Re-evaluation Re-evalutation: 06/06/19 17:11 we have tried to ambulate this pt. but she does require assistance. Daughter states she normally ambulates without assistance. I will speak to neurology at [facility] to see if she is a TPA candidate. 06/06/19 17:26 I have had a long conversation with pt. and her family -- they would like to get TPA and be sent to [facility]. We will make those arrangements - Laboratory Result Diagrams: 06/06/19 16:10 06/06/19 16:10 Laboratory results interpreted by me: 06/06/19 16:10 Hgb 11.5 L Hct 34.3 L RDW 15.4 H - Diagnostic Test Radiology reviewed: Reports reviewed - ct- no acute stroke - Consults loreta Arrington (neurology- [facility]) Time consulted: 17:25 Consulted provider: other Critical Care Note - Critical Care Note Total time excluding time spent on procedures (mins): 30 ED [employer]/Exc Criteria - Inclusion Criteria: 1: Patient presented to ED within 3 hours of acute ischemic stroke symptom onset? -: Yes 2: Did baseline CT exclude intracranial hemorrhage and/or other risk factors? -: Yes 3: Is the age of the patient 18 years of age or greater? -: Yes : If any of the above questions are answered "NO" then stop, patient is not a candidate for Alteplase, : If all of the above questions are answered "YES" then continue with Exclusion Criteria. - Exclusion Criteria: 1: Is there evidence of intracranial hemorrhage on baseline CT? -: No 2: Is there suspicion of subarachnoid hemorrhage (even if CT negative)? -: No 3: Is there a history of serious head trauma, recent previous stroke or IA within 3 months? -: No 4: Does the patient have a clinical presentation consistent with IA or post-IA pericarditis? -: No 5: Is there history of intracranial hemorrhage? -: No 6: On repeated measurement is Systolic BP greater than 185mmHg or Diastolic BP greater that 110 mmHg and is aggressive treatment needed to reduce blood pressure to these limits (e.g. constant infusion of an anti-hypertensive)? -: No 7: Did the patient awake with stroke symptoms? -: No 8: Has the patient had a lumbar puncture or an arterial puncture at a non-comp ressile site within 7 days? 9: With in the last 14 days did the patient have surgery or major trauma? -: No 10: Is the patient or less than 2 weeks? -: No 11: Was there any active bleeding or acute trauma? -: No 12: Does the patient have intracranial neoplasm, arteriovenous malformation or aneurysm? -: No 13: Does the patient have abnormal glucose (less than 50 or greater than 400mg/dl)? Record glucose in Comment. -: No 14: Patient has rapidly improving symptoms at the time Alteplase is to be Admini stered. -: No 15: Does the patient have any risks for bleeding, including but not limited to: a.: Current use of Coumadin with PT greater than 15 seconds or INR greater than 1.7. b.: Current use of Pradaxa (Dabigatran). c.: Heparin administereed within the past 48 hours and PTT elevated. d.: Platelet count less than 100,000/mm. e.: Major surgery or serious trauma within 14 days. f.: Gastrointestinal or gynecological urinary bleeding within 14 days. g.: Myocardial Infarction (IA) within 3 months. -: No : If the answer to any of the above questions is "YES" then stop, the patient is not a candidate for Alteplase. : If the answer to all of the above questions is "NO" then the patient may be eligible for the Administration of Alteplase. : If the patient is noted to have seizure activity at onset of Stroke symptoms; Consult Neurologist for further evaluation. - The patient is: -: Included and is eligible to receive Alteplase. *Initiate bed placement at higher level of care* --: Yes Reviewed risks & benefits of thrombolytic therapy: I have reviewed the risks and benefits of thrombolytic therapy with the patient and/or his/her family. Yes -: Excluded and not eligible to receive Alteplase for the above exclusions. -: Excluded and not eligible to receive Alteplase for other reasons (specify in comments): - Diagnosis of TIA: -: Patient presented with transient symptoms that are now resolved and no other neurologic findings are currently present. List symptoms in comments. -: Patient is NOT a candidate for tPA. -: ____(put name in comment) has been consulted for admission and continued evaluation of risk factor assessment. ED NIH Stroke Scale - NIH Stroke Scale *: 1. NIH scale should be completed with appropriate accompanying assessment tools. *: 2. The NIH should reflect what the patient is capable of doing and should not be coached by the clinician. 1a. Level of Consciousness: 0=Alert;keenly responsive -: 1=Drowsy -: 2=Obtunded -: 3=Coma/unresponsive or reflex to noxious stimuli. 1b. Orientation Questions: a. What month is it? -: b. How old are you? -: 0=Answers both questions correctly. -: 1=Answers one question correctly or patient is intubated or has orotracheal trauma. -: 2=Answers neither question correctly. 1b. Responses: 0 1c. Response to commands: a. Open and close eyes? -: b. Business Operations Specialist and release hand? -: Credit is given despite weakness. Demonstration of task is permitted. Substitute command if hands cannot be used. -: 0=Performs both tasks correctly -: 1=Performs one task correctly -: 2=Performs neither task correctly 2. Gaze: Establish eye contact and instruct patient to "Follow my finger" -: 0=Normal -: 1=Partial gaze palsy. Gaze is abnormal in one or both eyes, but where forced deviation or total gaze paresis is not present. -: 2=Forced deviation or total gaze paresis. 2. Responses: 0 3. Visual [place]: Sees fingers in all four quadrants. -: 0=No visual loss. -: 1=Partial hemianopsia. -: 2=Complete hemianopsia. -: 3=Bilateral hemianopsia (including Cortical blindness) 3. Responses: 0 4. Facial Movement: Instruct patient to: -: a. Show me your teeth -: b. Raise your eyebrows -: c. Close your eyes -: d. Smile -: 0=Normal symmetrical movement -: 1=Minor paralysis (flattened nasolabial fold, asymmetry on smiling). -: 2=Partial paralysis (total or near total paralysis of lower face). -: 3=Complete paralysis of upper and lower face 5. Motor functions (left arm): Alternate sides and extend each arm with palms down (90 degrees if sitting or 45 degrees for supine). -: 0=No drift;limb holds for full 10 seconds. -: 1=Drift; limb holds but drifts down before full 10 seconds, but does not hit bed. -: 2=Some effort against gravity; limb cannot get to or maintain position. -: 3=No effort against gravity; limb falls. -: 4=No movement. -: UN=Amputation, joint fusion, explain in comments. 5. Responses (left arm): 0 5. Motor Functions (right arm): Alternate sides and extend each arm with palms down (90 degrees if sitting or 45 degrees for supine). -: 0=No drift;limb holds for full 10 seconds. -: 1=Drift; limb holds but drifts down before full 10 seconds, but does not hit bed. -: 2=Some effort against gravity; limb cannot get to or maintain position. -: 3=No effort against gravity; limb falls. -: 4=No movement. -: UN=Amputation, joint fusion, explain in comments. 6. Motor Functions (left leg): With patient lying supine, alternate sides and extend each leg (30 degrees always while supine). -: 0=No drift, leg holds position for full 5 seconds -: 1=Drift; leg falls before full 5 seconds but does not hit bed. -: 2=Some effort against gravity, leg falls to bed but some effort against gravity. -: 3=No effort against gravity, leg falls to bed immediately. -: 4=No movement. -: UN=Amputation, joint fusion; explain in comments. 6. Responses (left leg): 1 6. Motor Functions (right leg): With patient lying supine, alternate sides and extend each leg (30 degrees always while supine). -: 0=No drift, leg holds position for full 5 seconds -: 1=Drift; leg falls before full 5 seconds but does not hit bed. -: 2=Some effort against gravity, leg falls to bed but some effort against gravity. -: 3=No effort against gravity, leg falls to bed immediately. -: 4=No movement. -: UN=Amputation, joint fusion; explain in comments. 6. Responses (right leg): 0 7. Limb Ataxia: With eyes open instruct patient to: -: a. "Touch your finger to your nose". -: b. "Touch your heel to your [place]" -: 0=Absent -: 1=Present in one limb. -: 2=Present in two limbs. -: UN=Amputation or joint fusion; explain in comments. 8. Sensory: Test sensation using pinprick or noxious stimuli. Test as many body parts as possible. -: 0=Normal;no sensory loss -: 1=Mile to moderate sensory loss (patient feels pin prick but is less sharp on affected side). -: 2=Severe or total sensory loss. 8. Responses: 0 9. Best Language: Instruct patient to: -: a. "Describe what you see in this picture." -: b. "Name the items in this picture." -: c. "Read these sentences." -: 0=No aphasia, normal -: 1=Mild to moderate aphasia. -: 2=Severe aphasia -: 3=Mute, global aphasia, no usable speech or auditory comprehension. 9. Responses: 0 10. Articulation, Dysarthia: Instruct patient to: -: "Read these words" or "Repeat these words" -: 0=Normal -: 1=Mild to moderate; patient may slur some words but can be understood without difficulty. -: 2=Severe; patients speech so slurred as to be unintelligible in the absence of dysphasia. -: UN=Intubated or other physical barrier, explain in comments. 10. Responses: 0 11. Extinction or inattention: 0=No abnormality -: 1= Visual, tactile, auditory, spatial, or personal inattention or extinction to bilateral simulation in one or the sensory modalities. -: 2=Profound lauren-inattention or lauren-inattention to more than one modality; does not recognize own hand. Total Score: 1 Discharge - Discharge Clinical Impression: CVA (cerebral vascular accident) Qualifiers: CVA mechanism: other Qualified Code(s): I63.89 - Other cerebral infarction Condition: Fair Disposition: [facility] Referrals: VANESSA PERALTA DO [Primary Care Provider] - Follow up as needed
[2019-06-06] MEDS ORDERED: ALTEPLASE INJ 100 MG VIAL ONE (16:54)
[2019-06-06] MEDS ORDERED: ALTEPLASE INJ 100 MG VIAL IV ONE ×2 (17:00→18:20)
[2019-06-06 18:26] VITALS: BP 133/67
--- NOTE | 2019-06-06 18:30 | EKG REPORT ---
SEVERITY:- OTHERWISE NORMAL ECG - SINUS RHYTHM BORDERLINE RIGHT AXIS DEVIATION : Confirmed by: Sandeep Ji MD 06-Jun-2019 18:29:53
== END 2019-06-06 18:25 | disposition short-term general hospital (02) ==
LOC: ER 15:21
DX: I63.9 Cerebral infarction, unspecified (principal); G83.14 Monoplegia of lower limb affecting left nondominant side; R29.701 NIHSS score 1; I10 Essential (primary) hypertension; E11.9 Type 2 diabetes mellitus without complications; R47.1 Dysarthria and anarthria
CPT/HCPCS: 93005; 99285; 96374; 36415; 82962; 85025; 85610; 85730; 80053; 70450; 93010; J2997

== ENCOUNTER 2019-10-09 14:58 | Observation (INO) | payer MEDICARE, MEDICAID ==
--- NOTE | 2019-10-09 15:17 | RADIOLOGY REPORT (SQ) ---
EXAM DESCRIPTION: CT HEAD WITHOUT COMPLETED DATE/TIME: 10/09/2019 3:03 pm REASON FOR STUDY: bed 16 stroke alert COMPARISON: 06/06/2019 TECHNIQUE: Axial images acquired through the brain without intravenous contrast. Images reviewed wi th bone, brain and subdural windows. Additional sagittal and coronal reconstructions were generated. Images stored on PACS. All CT scanners at this facility use dose modulation, iterative reconstruction, and/or weight based d osing when appropriate to reduce radiation dose to as low as reasonably achievable (ALARA). [facility]: Dose Right [facility]: CareDose [facility]: Dose Right [facility]: Teradose 4D [facility]: FolioDynamix RADIATION DOSE: mGy. LIMITATIONS: None. FINDINGS: VENTRICLES: Prominent. CEREBRUM: No masses. No hemorrhage. No midline shift. Areas of low density in the white matter mos t likely due to chronic micro-vascular ischemic change. No evidence for acute infarction. There are areas of encephalomalacia in both MCA distributions. There is an old right occipital lobe infarct a s well. CEREBELLUM: No masses. No hemorrhage. No alteration of density. No evidence for acute infarction. EXTRAAXIAL SPACES: Age-related involutional change. No fluid collections. No masses. ORBITS AND GLOBE: No intra- or extraconal masses. Normal contour of globe without masses. CALVARIUM: No fracture. PARANASAL SINUSES: No fluid or mucosal thickening. SOFT TISSUES: No mass or hematoma. OTHER: No other significant finding. IMPRESSION: Atrophy and small-vessel ischemic changes. 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 No acute intracranial event. EVIDENCE OF ACUTE STROKE: NO. COMMENT: Pertinent positive or negative findings of the imaging study reported as a CRITICAL EXAM t o ER PROVIDER at15:10 on 10/09/2019. Category of Critical Exam: Code stroke. TECHNICAL DOCUMENTATION: JOB ID: [id number] Quality ID # [id number]: Final reports with documentation of one or more dose reduction techniques (e.g., Au tomated exposure control, adjustment of the mA and/or kV according to patient size, use of iterative reconstruction technique) 2010 [employer]- All Rights Reserved Reading location - IP/workstation name: [email or web address]
--- NOTE | 2019-10-09 15:17 | RADIOLOGY REPORT (SQ) ---
EXAM DESCRIPTION: CHEST SINGLE VIEW COMPLETED DATE/TIME: 10/09/2019 3:06 pm REASON FOR STUDY: bed 16 stroke alert COMPARISON: 03/13/2019 EXAM PARAMETERS: NUMBER OF VIEWS: One view. TECHNIQUE: Single frontal radiographic view of the chest acquired. RADIATION DOSE: NA LIMITATIONS: None. FINDINGS: LUNGS AND PLEURA: No opacities, masses or pneumothorax. No pleural effusion. MEDIASTINUM AND HILAR STRUCTURES: No masses. Contour normal. HEART AND VASCULAR STRUCTURES: Heart normal in size. Normal vasculature. BONES: No acute findings. HARDWARE: None in the chest. OTHER: No other significant finding. IMPRESSION: NO ACUTE RADIOGRAPHIC FINDING IN THE CHEST. TECHNICAL DOCUMENTATION: JOB ID: [id number] 2010 [employer]- All Rights Reserved Reading location - IP/workstation name: [email or web address]
[2019-10-09 15:37] LABS: INTERNATIONAL RATION (INR) 1.14; PROTHROMBIN TIME 14.6 SEC (11.4-15.4)
[2019-10-09 15:38] LABS: ABSOLUTE EOSINOPHILS # (AUTO) 0.2 10^3/uL (0.0-0.6); ABSOLUTE MONOCYTES (AUTO) 0.4 10^3/uL (0.1-1.4); ABSOLUTE NEUT (AUTO) 4.7 10^3/uL (1.7-8.2); BASOPHILS % (AUTO) 0.7 % (0-2); EOSINOPHILS % (AUTO) 3.2 % (0-6); HEMATOCRIT 33.9 % (36.0-47.0); HEMOGLOBIN 11.5 g/dL (12.0-15.5); LYMPHOCYTES % (AUTO) 15.8 % (13-45); MEAN CORPUSCULAR HEMOGLOBIN 28.7 pg (27.0-33.4); MEAN CORPUSCULAR VOLUME 84 fl (80-97); MONOCYTES % (AUTO) 5.6 % (3-13); PARTIAL THROMBOPLASTIN TIME 30.8 SEC (23.5-35.8); PLATELET COUNT 213 10^3/uL (150-450); RED BLOOD COUNT 4.01 10^6/uL (3.72-5.28); RED CELL DISTRIBUTION WIDTH 15.7 % (11.5-14.0); SEGMENTED NEUTROPHILS % (AUTO) 74.7 % (42-78); TOTAL CELLS COUNTED % (AUTO) 100 %; WHITE BLOOD COUNT 6.3 10^3/uL (4.0-10.5)
[2019-10-09 15:59] LABS: ALBUMIN 4.5 g/dL (3.5-5.0); ALKALINE PHOSPHATASE 132 U/L (38-126); ANION GAP 12 (5-19); ASPARTATE AMINO TRANSFERASE 27 U/L (14-36); BILIRUBIN,DIRECT 0.3 mg/dL (0.0-0.4); BILIRUBIN,TOTAL 0.6 mg/dL (0.2-1.3); BLOOD UREA NITROGEN 16 mg/dL (7-20); CALCIUM 8.6 mg/dL (8.4-10.2); CARBON DIOXIDE 18 mmol/L (22-30); CHLORIDE 106 mmol/L (98-107); CREATINE KINASE 65 U/L (30-135); GLUCOSE 96 mg/dL (75-110); POTASSIUM 4.8 mmol/L (3.6-5.0); TOTAL PROTEIN 7.9 g/dL (6.3-8.2)
[2019-10-09 16:09] LABS: CREATINE KINASE MB 0.67 ng/mL (<4.55)
[2019-10-09 16:10] LABS: TROPONIN I < 0.012 ng/mL
--- NOTE | 2019-10-09 18:49 | RADIOLOGY REPORT (SQ) ---
EXAM DESCRIPTION: MRI HEAD WITHOUT COMPLETED DATE/TIME: 10/09/2019 6:30 pm REASON FOR STUDY: stroke symptoms COMPARISON: 05/09/2018 TECHNIQUE: Multiplanar imaging includes non-contrasted T1, T2, FLAIR, and diffusion with ADC map seq uences. Images stored on PACS. LIMITATIONS: None. FINDINGS: ANATOMY: No anomalies. Normal vascular flow voids. Pituitary fossa normal. CSF SPACES: Normal in size and contour. No hemorrhage. CEREBRUM: Multiple old infarctions. Extensive areas of increased white matter signal on FLAIR imagin g. No evidence of hemorrhage, mass, or extraaxial fluid collection. POSTERIOR FOSSA: No signal alteration. No hemorrhage. No edema, masses or mass effect. Internal kavitha tory canals, cerebello-pontine angles, mastoids normal. DIFFUSION IMAGING: Negative for acute or sub-acute infarction. ORBITS: No masses. Globes normal. PARANASAL SINUSES: No fluid levels. Mucosa normal. OTHER: No other significant finding. IMPRESSION: Extensive severe ischemic changes with no evidence of acute infarction. EVIDENCE OF ACUTE STROKE: NO. TECHNICAL DOCUMENTATION: JOB ID: [id number] 2010 [employer]- All Rights Reserved Reading location - IP/workstation name: [email or web address]
--- NOTE | 2019-10-09 19:53 | EKG REPORT ---
SEVERITY:- BORDERLINE ECG - SINUS RHYTHM BORDERLINE INFERIOR Q WAVES : Confirmed by: Sandeep Ji MD 09-Oct-2019 19:52:44
[2019-10-09] MEDS ORDERED: ACETAMINOPHEN 325 MG TABLET PO ONE (20:04)
--- NOTE | 2019-10-09 20:47 | ER Document Report ---
ED General - General Chief Complaint: S/S of Possible Stroke Stated Complaint: POSSIBLE STROKE Time Seen by Provider: 10/09/19 15:08 Primary Care Provider: VANESSA PERALTA DO [Primary Care Provider] - Follow up as needed TRAVEL OUTSIDE OF THE [place] IN LAST 30 DAYS: No - HPI Notes: Chief complaint: Possible stroke This is a 39-year-old female who has had previous bilateral MCA strokes resulting in severe long-term deficits including expressive aphasia and contracture of left upper extremity. She now presents for evaluation of sudden onset of worsening sensory deficit primarily in left upper extremity developing approximately 35 minutes prior to arrival here. Symptoms are persistent at this time. She has some associated dull left-sided headache. No nausea or vomiting. History is obtained from the patient and from her . Patient speech is essentially unintelligible but indicates that this is her prior baseline. Supplemental history subsequently obtained from Stroke Service at [facility] where she was previously treated in May 2019. Prior records indicate that patient has had extensive vascular work-up with no specific etiology determined for her early strokes. She is presently on aspirin and Plavix and I had also prescribed atorvastatin. She is apparently noncompliant with the atorvastatin. She was supposed to be seen locally by ordnance technician and a neurologist following discharge from [facility] in May 2019 but apparently he is not under the care of any local physicians at this time. She never received any local follow-up. - Related Data Allergies/Adverse Reactions: No Known Allergies Allergy (Verified 08/31/17 16:15) Past Medical History - General Information source: Patient, Relative, [facility] Records - Social History Smoking Status: Former Smoker Family History: Reviewed & Not Pertinent, DM, Hypertension Patient has suicidal ideation: No Patient has homicidal ideation: No - Past Medical History Cardiac Medical History: Reports: Hx Hypertension Denies: Hx Coronary Artery Disease, Hx Heart Attack Pulmonary Medical History: Denies: Hx Asthma, Hx Bronchitis, Hx COPD, Hx Pneumonia, Hx Tuberculosis Neurological Medical History: Reports: Hx Cerebrovascular Accident - Last MRI on 03/14/2013 showed bilateral acute and chronic infarcts in the c, Hx Migraine. Denies: Hx Seizures Endocrine Medical History: Reports: Hx Diabetes Mellitus Type 2. Denies: Hx Diabetes Mellitus Type 1 Renal/ Medical History: Denies: Hx Peritoneal Dialysis GI Medical History: Reports: Hx Diverticulitis, Hx Gastroesophageal Reflux Disea se, Hx Pancreatitis Musculoskeletal Medical History: Denies Hx Arthritis Psychiatric Medical History: Reports: Hx Anxiety, Hx Bipolar Disorder, Hx Dep ression Past Surgical History: Reports: Hx Section - x1, Hx Cholecystectomy, Hx Pancreatic Surgery - stents. Denies: Hx Pacemaker - Immunizations Immunizations up to date: No Hx Diphtheria, Pertussis, Tetanus Vaccination: Yes Hx Pneumococcal Vaccination: 07/16/00 Review of Systems - Review of Systems -: Yes ROS unobtainable due to patient's medical condition Physical Exam - Vital signs Vitals: Temp Pulse Resp BP Pulse Ox 98.6 F 83 13 112/79 98 10/09/19 14:58 10/09/19 14:58 10/09/19 14:58 10/09/19 14:58 10/09/19 14:58 - Notes Notes: GENERAL: Chronically ill, somewhat disheveled middle-age female with severe expressive aphasia and obvious chronic contracture of left upper extremity. SKIN: Good turgor no rashes. HEAD: Normocephalic atraumatic. EYES: PERRLA. EOMI. Conjunctivae and sclerae clear. EARS: CANALS AND TMS CLEAR. NOSE: CLEAR. MOUTH: Moist mucosa. No stridor or edema. No drooling. NECK: Supple. No masses or thyromegaly. No adenopathy. Carotids 2+ without bruits. No JVD. BACK: Symmetrical without tenderness. CHEST: Respirations unlabored. Breath sounds clear and symmetrical. HEART: Regular rhythm. No murmur gallop or rub. ABDOMEN: Soft nontender without masses, organomegaly or rebound. Bowel sounds normally active. No bruits. GENITALIA: Deferred. EXTREMITIES: Old contracture left upper extremity. No calf tenderness. Cap refill less than 1.5 seconds. Dorsalis pedis and posterior tibial pulses 3+ and symmetrical. NEUROLOGICAL: Alert and oriented x3. Severe a aphasia which is her baseline. Cranial nerves II through XII intact. Subjective decrease in sensation over left upper extremity. No motor drift of either lower extremity or right upper extremity. Normal finger-nose testing of right upper extremity. Pre-existing severe motor impairment of left upper extremity with contracture. Course - Re-evaluation Re-evalutation: 10/09/19 20:51 Patient was treated as a code stroke on arrival. We obtained a stat noncontrast head CT which showed extensive previous bilateral MCA strokes but no obvious acute stroke or bleed. On the basis of her minimal new impairments I did not feel she was a suitable candidate for intervention with TPA. Case was discussed with Dr. Sigifredo Beach the on-call stroke attending at [facility]. He did not recommend TPA but felt that we should get a stat MRI of the brain. This study was obtained and did not show any evidence of new CVA. Patient's twelve-lead EKG showed no acute changes. CBC was remarkable for mild anemia. Comprehensive metabolic profile was unremarkable. Troponin was normal. Patient's blood pressure was 128/65. She was afebrile. I spoke again with the on-call stroke attending at [facility] after they had a chance to review the MRI scan. In the meantime the patient reported that her left upper extremity numbness had improved although it had not complet sarah resolved. Dr. Arrington recommended that we admit the patient locally and keep her on aspirin and Plavix and restart her atorvastatin. 10/09/19 21:03 Case has been discussed with on-call hospitalist Dr. Arnoldo Tirado and he will admit to [facility]. - Vital Signs Vital signs: Temp Pulse Resp BP Pulse Ox 98.6 F 83 16 124/65 100 10/09/19 14:58 10/09/19 14:58 10/09/19 16:01 10/09/19 16:01 10/09/19 16:01 - Laboratory Result Diagrams: 10/09/19 15:11 10/09/19 15:11 Laboratory results interpreted by me: 10/09/19 10/09/19 15:11 15:11 Hgb 11.5 L Hct 33.9 L RDW 15.7 H Sodium 135.8 L Carbon Dioxide 18 L Alkaline Phosphatase 132 H - EKG Interpretation by Me Additional EKG results interpreted by me: 10/09/19 21:05 Twelve-lead EKG from 1506 hrs. was reviewed contemporaneously by me showing a normal sinus rhythm with a rate of 83. QRS axis of 84 degrees and normal intervals with no acute ST/T wave changes. Discharge - Discharge Clinical Impression: TIA, LATE EFFECT OLD CVA Condition: Fair Disposition: ADMITTED INPATIENT Admitting Provider: Celestino (Hospitalist) Unit Admitted: [facility] Referrals: VANESSA PERALTA DO [Primary Care Provider] - Follow up as needed
[2019-10-09] MEDS ORDERED: DOCUSATE SODIUM 100 MG CAPSULE PO PRN (21:03)
[2019-10-09] MEDS ORDERED: MAGNESIUM HYDROXIDE SUSP 30 ML UDCUP PO PRN (21:03)
[2019-10-09] MEDS ORDERED: ACETAMINOPHEN 325 MG TABLET PO PRN (21:03)
[2019-10-09] MEDS ORDERED: NORMAL SALINE 1000 ML 1,000 ML IV ONE (21:04)
[2019-10-09] MEDS ORDERED: ATORVASTATIN CALCIUM 80 MG TABLET PO SCH (22:00)
[2019-10-09] MEDS: HEPARIN SOD (PORCINE) 5,000 UNIT/ML 1 ML VIAL SUBCUT SCH (22:39)
[2019-10-10] MEDS ORDERED: BUTALB/ACETAMINOPHEN/CAFFEINE 1 TAB EACH PO ONE (02:00)
--- NOTE | 2019-10-10 02:49 | PDOC H&P ---
History of Present Illness Admission Date/PCP: 10/09/19 21:39 VANESSA PERALTA DO Patient complains of: Left arm numbness History of Present Illness: HOLLIE LLOYD is a 39 year old female with a past medical history of depression, anxiety, remote alcohol dependence and bilateral MCA CVA May 2019, with severe long-term deficits of expressive aphasia and left upper extremity contracture. Extensive tertiary care work-up is unremarkable for etiology. History is obtained by emergency room provider, and the record. Patient presents with 35 minutes of numbness to the left upper arm. Denies additional complaints, unremarkable work-up for acute finding. Neurologist Dr Arrington at [facility] in [place] is consulted by emergency room room physician recommending conservative management, continuing aspirin, Plavix, statin. recent primary care follow-up, recently discontinued statin. Patient indicates symptoms are reduced. She is referred to the hospitalist for admission. Past Medical History Cardiac Medical History: Reports: Hypertension Denies: Coronary Artery Disease, Myocardial Infarction Pulmonary Medical History: Denies: Asthma, Bronchitis, Chronic Obstructive Pulmonary Disease (COPD), Pneumonia, Tuberculosis Neurological Medical History: Reports: Migraine Denies: Seizures Endocrine Medical History: Reports: Diabetes Mellitus Type 2 Denies: Diabetes Mellitus Type 1 GI Medical History: Reports: Diverticulitis, Gastroesophageal Reflux Disease Musculoskeltal Medical History: Denies: Arthritis Psychiatric Medical History: Reports: Bipolar Disorder, Depression Hematology: Denies: Anemia Past Surgical History Past Surgical History: Reports: Section - x1, Cholecystectomy Denies: Pacemaker Social History Information Source: Patient, Emergency Med Personnel, [facility] Records Smoking Status: Former Smoker Cigarettes Packs Per Day: 2 Number of Years Smokin Last Time Smoked: 1991 Frequency of Alcohol Use: None Hx Recreational Drug Use: No Hx Prescription Drug Abuse: No - Advance Directive Resuscitation Status: Full Code Family History Family History: DM, Hypertension Parental Family History Reviewed: No - Unobtainable Children Family History Reviewed: No - Unobtainable Sibling(s) Family History Reviewed.: No - Unobtainable Medication/Allergy Home Medications: Alprazolam 1 mg PO BIDP PRN 10/09/19 Atorvastatin Calcium [Lipitor 80 mg Tablet] 80 mg PO QHS 10/09/19 Cyclobenzaprine HCl [Flexeril 10 mg Tablet] 10 mg PO TIDP PRN 10/09/19 Fluoxetine HCl 40 mg PO DAILY 10/09/19 Gabapentin 600 mg PO BID 10/09/19 Olanzapine 10 mg PO QHS 10/09/19 Oxycodone HCl/Acetaminophen [Oxycodone-Acetaminophen 10-325] 1 tab PO Q6HP PRN 10/09/19 Topiramate [Topamax 100 Mg Tablet] 200 mg PO BID 10/09/19 Triazolam 0.25 mg PO HSP PRN 10/09/19 Allergies/Adverse Reactions: No Known Allergies Allergy (Verified 08/31/17 16:15) Review of Systems ROS unobtainable: Due to mental status - Aphasic Physical Exam Vital Signs: Temp Pulse Resp BP Pulse Ox 98 F 66 20 112/67 100 10/09/19 23:49 10/09/19 23:49 10/09/19 23:49 10/09/19 23:49 10/09/19 23:49 Intake & Output 10/08/19 10/09/19 10/10/19 11:59 11:59 11:59 Output Total 0 Balance 0 Weight 55.8 kg General appearance: PRESENT: no acute distress, cooperative, thin, well- developed, well-nourished Head exam: PRESENT: atraumatic, normocephalic Eye exam: PRESENT: conjunctiva pink, EOMI, PERRLA. ABSENT: scleral icterus Ear exam: PRESENT: normal external ear exam Mouth exam: PRESENT: moist, tongue midline Neck exam: ABSENT: carotid bruit, JVD, lymphadenopathy, thyromegaly Respiratory exam: PRESENT: clear to auscultation foster. ABSENT: rales, rhonchi, wheezes Cardiovascular exam: PRESENT: RRR. ABSENT: diastolic murmur, rubs, systolic murmur Pulses: PRESENT: normal dorsalis pedis pul Vascular exam: PRESENT: normal capillary refill GI/Abdominal exam: PRESENT: normal bowel sounds, soft. ABSENT: distended, guarding, mass, organolmegaly, rebound, tenderness Rectal exam: PRESENT: deferred Extremities exam: PRESENT: full ROM. ABSENT: calf tenderness, clubbing, pedal edema Musculoskeletal exam: PRESENT: normal inspection, other. ABSENT: full ROM - Left upper extremity contracture, tenderness Neurological exam: PRESENT: alert, awake, oriented to person, oriented to place, oriented to time, oriented to situation, CN II-XII grossly intact, aphasic. ABSENT: motor sensory deficit Psychiatric exam: PRESENT: appropriate affect, normal mood. ABSENT: homicidal ideation, suicidal ideation Skin exam: PRESENT: dry, intact, warm. ABSENT: cyanosis, rash Results Laboratory Results: 10/09/19 15:11 10/09/19 15:11 10/09/19 10/09/19 10/09/19 15:11 15:11 15:11 WBC 6.3 RBC 4.01 Hgb 11.5 L Hct 33.9 L MCV 84 MCH 28.7 MCHC 34.0 RDW 15.7 H Plt Count 213 Seg Neutrophils % 74.7 Sodium 135.8 L Potassium 4.8 Chloride 106 Carbon Dioxide 18 L Anion Gap 12 BUN 16 Creatinine 0.84 Est GFR ( Amer) > 60 Glucose 96 Calcium 8.6 Total Bilirubin 0.6 AST 27 Alkaline Phosphatase 132 H C-Reactive Protein < 5.0 Total Protein 7.9 Albumin 4.5 10/09/19 10/09/19 15:11 15:11 Creatine Kinase 65 CK-MB (CK-2) 0.67 Troponin I < 0.012 Impressions: Head MRI 10/09/19 00:00 IMPRESSION: Extensive severe ischemic changes with no evidence of acute infarction. EVIDENCE OF ACUTE STROKE: NO. Chest X-Ray 10/09/19 14:59 IMPRESSION: NO ACUTE RADIOGRAPHIC FINDING IN THE CHEST. Head CT 10/09/19 14:59 IMPRESSION: Atrophy and small-vessel ischemic changes. 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 No acute intracranial event. EVIDENCE OF ACUTE STROKE: NO. Assessment and Plan - Diagnosis (1) TIA (transient ischemic attack) Is this a current diagnosis for this admission?: Yes Plan: CVA care set deployed, no additional cardiovascular work-up recommended by tertiary care physician Dr. Arrington. MRI reveals chronic changes, recommending aspirin, Plavix and statin. Supportive care, consider speech therapy. (2) Anxiety Is this a current diagnosis for this admission?: Yes Plan: Trial trazodone as needed - Time Time Spent with patient: 25-34 minutes - Inpatient Certification Medical Necessity: Need Close Monitoring Due to Risk of Patient Decompensation
[2019-10-10] MEDS: HEPARIN SOD (PORCINE) 5,000 UNIT/ML 1 ML VIAL SUBCUT SCH ×2 (06:19→13:45)
[2019-10-10] MEDS ORDERED: CLOPIDOGREL BISULFATE 75 MG TABLET PO SCH (10:00)
--- NOTE | 2019-10-10 11:11 | PDOC DISCHARGE SUMMARY ---
Impression - Admit/DC Date/PCP Admission Date/Primary Care Provider: 10/09/19 21:39 VANESSA PERALTA DO Discharge Date: 10/10/19 - Discharge Diagnosis (1) Anxiety Is this a current diagnosis for this admission?: Yes (2) TIA (transient ischemic attack) Is this a current diagnosis for this admission?: Yes - Additional Information Resuscitation Status: Full Code Referrals: VANESSA PERALTA DO [Primary Care Provider] - 10/15/19 11:00 am Home Medications: Alprazolam 1 mg PO BIDP PRN 10/09/19 Atorvastatin Calcium [Lipitor 80 mg Tablet] 80 mg PO QHS 10/09/19 Cyclobenzaprine HCl [Flexeril 10 mg Tablet] 10 mg PO TIDP PRN 10/09/19 Fluoxetine HCl 40 mg PO DAILY 10/09/19 Gabapentin 600 mg PO BID 10/09/19 Olanzapine 10 mg PO QHS 10/09/19 Oxycodone HCl/Acetaminophen [Oxycodone-Acetaminophen 10-325] 1 tab PO Q6HP PRN 10/09/19 Topiramate [Topamax 100 mg Tablet] 200 mg PO BID 10/09/19 Triazolam 0.25 mg PO HSP PRN 10/09/19 History of Present Illiness History of Present Illness: HOLLIE LLOYD is a 39 year old female with a past medical history of depression, anxiety, remote alcohol dependence and bilateral MCA CVA May 2019, with severe long-term deficits of expressive aphasia and left upper extremity contracture. Extensive tertiary care work-up is unremarkable for etiology. History is obtained by emergency room provider, and the record. Patient presents with 35 minutes of numbness to the left upper arm. Denies additional complaints, unremarkable work-up for acute finding. Neurologist Dr Arrington at [facility] in [place] is consulted by emergency room room physician recommending conservative management, continuing aspirin, Plavix, statin. recent primary care follow-up, recently discontinued statin. Patient indicates symptoms are reduced. She is referred to the hospitalist for admission. Hospital Course Hospital Course: (1) TIA (transient ischemic attack) CVA care set deployed, no additional cardiovascular work-up recommended by tertiary care physician Dr. Arrington. MRI reveals chronic changes, recommending aspirin, Plavix and statin. Supportive care. Patient wants to go home. Follow-up with PCP and neurology outpatient. Symptoms has resolved completely. She is at her baseline. vamp cut out worker consult for discharge planning. (2) Anxiety improved. continue home meds Physical Exam Vital Signs: Temp Pulse Resp BP Pulse Ox 98.5 F 85 18 121/78 99 10/10/19 08:09 10/10/19 08:09 10/10/19 08:09 10/10/19 08:09 10/10/19 08:09 Intake & Output 10/09/19 10/10/19 10/11/19 06:59 06:59 06:59 Intake Total 1000 Output Total 0 Balance 0 1000 Weight 122 lb 9.232 oz Exam: General appearance: no acute distress, cooperative, thin, well-developed, well- nourished Head exam: atraumatic, normocephalic Eye exam: conjunctiva pink, EOMI, PERRLA. no scleral icterus Neck exam: no carotid bruit, JVD, lymphadenopathy, thyromegaly Respiratory exam: clear to auscultation foster. no rales, rhonchi, wheezes Cardiovascular exam: RRR. no diastolic murmur, rubs, systolic murmur Pulses: normal dorsalis pedis pul Vascular exam: normal capillary refill GI/Abdominal exam: normal bowel sounds, soft. no distended, guarding, mass, organolmegaly, rebound, tenderness Neurological exam: alert, awake, severe aphasia. LUE weakness and contracture Psychiatric exam: appropriate affect, normal mood. Skin exam: dry, intact, warm. no cyanosis, rash Results Laboratory Results: WBC 6.3 10^3/uL (4.0-10.5) 10/09/19 15:11 RBC 4.01 10^6/uL (3.72-5.28) 10/09/19 15:11 Hgb 11.5 g/dL (12.0-15.5) L 10/09/19 15:11 Hct 33.9 % (36.0-47.0) L 10/09/19 15:11 MCV 84 fl (80-97) 10/09/19 15:11 MCH 28.7 pg (27.0-33.4) 10/09/19 15:11 MCHC 34.0 g/dL (32.0-36.0) 10/09/19 15:11 RDW 15.7 % (11.5-14.0) H 10/09/19 15:11 Plt Count 213 10^3/uL (150-450) 10/09/19 15:11 Lymph % (Auto) 15.8 % (13-45) 10/09/19 15:11 [place] % (Auto) 5.6 % (3-13) 10/09/19 15:11 Eos % (Auto) 3.2 % (0-6) 10/09/19 15:11 Baso % (Auto) 0.7 % (0-2) 10/09/19 15:11 Absolute Neuts (auto) 4.7 10^3/uL (1.7-8.2) 10/09/19 15:11 Absolute Lymphs (auto) 1.0 10^3/uL (0.5-4.7) 10/09/19 15:11 Absolute Monos (auto) 0.4 10^3/uL (0.1-1.4) 10/09/19 15:11 Absolute Eos (auto) 0.2 10^3/uL (0.0-0.6) 10/09/19 15:11 Absolute Basos (auto) 0.0 10^3/uL (0.0-0.2) 10/09/19 15:11 Seg Neutrophils % 74.7 % (42-78) 10/09/19 15:11 ESR 6 mm/hr (0-20) 10/09/19 22:57 PT 14.6 SEC (11.4-15.4) 10/09/19 15:11 INR 1.14 10/09/19 15:11 APTT 30.8 SEC (23.5-35.8) 10/09/19 15:11 Sodium 135.8 mmol/L (137-145) L 10/09/19 15:11 Potassium 4.8 mmol/L (3.6-5.0) 10/09/19 15:11 Chloride 106 mmol/L (98-107) 10/09/19 15:11 Carbon Dioxide 18 mmol/L (22-30) L 10/09/19 15:11 Anion Gap 12 (5-19) 10/09/19 15:11 BUN 16 mg/dL (7-20) 10/09/19 15:11 Creatinine 0.84 mg/dL (0.52-1.25) 10/09/19 15:11 Est GFR ( Amer) > 60 (>60) 10/09/19 15:11 Est GFR (MDRD) Non-Af > 60 (>60) 10/09/19 15:11 Glucose 96 mg/dL (75-110) 10/09/19 15:11 POC Glucose 107 mg/dL (70-110) 10/09/19 15:01 Calcium 8.6 mg/dL (8.4-10.2) 10/09/19 15:11 Total Bilirubin 0.6 mg/dL (0.2-1.3) 10/09/19 15:11 Direct Bilirubin 0.3 mg/dL (0.0-0.4) 10/09/19 15:11 Neonat Total Bilirubin Not Reportable 10/09/19 15:11 Neonat Direct Bilirubin Not Reportable 10/09/19 15:11 Neonat Indirect Bili Not Reportable 10/09/19 15:11 AST 27 U/L (14-36) 10/09/19 15:11 ALT 18 U/L (<35) 10/09/19 15:11 Alkaline Phosphatase 132 U/L (38-126) H 10/09/19 15:11 Creatine Kinase 65 U/L (30-135) 10/09/19 15:11 CK-MB (CK-2) 0.67 ng/mL (<4.55) 10/09/19 15:11 Troponin I < 0.012 ng/mL 10/09/19 15:11 C-Reactive Protein < 5.0 mg/L (<10.0) 10/09/19 15:11 Total Protein 7.9 g/dL (6.3-8.2) 10/09/19 15:11 Albumin 4.5 g/dL (3.5-5.0) 10/09/19 15:11 10/09/19 15:11 CK-MB (CK-2) 0.67 Troponin I < 0.012 Impressions: Head MRI 10/09/19 00:00 IMPRESSION: Extensive severe ischemic changes with no evidence of acute infarction. EVIDENCE OF ACUTE STROKE: NO. Chest X-Ray 10/09/19 14:59 IMPRESSION: NO ACUTE RADIOGRAPHIC FINDING IN THE CHEST. Head CT 10/09/19 14:59 IMPRESSION: Atrophy and small-vessel ischemic changes. 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 No acute intracranial event. EVIDENCE OF ACUTE STROKE: NO. Plan Time Spent: Less than 30 Minutes Stroke Is this a Stroke Patient?: No Acute Heart Failure - Is this a Heart Failure Patient?: No
[2019-10-10 13:47] VITALS: BP 112/67
== END 2019-10-10 14:30 | disposition home or self-care (01) ==
LOC: ER 14:58 → EH 21:39 → INTOOBSV 21:39 → 3W 23:40
PROVIDERS: ADMIT Internal Medicine; ATTEND Family Medicine
DX: G45.9 Transient cerebral ischemic attack, unspecified (principal); F41.9 Anxiety disorder, unspecified; I69.320 Aphasia following cerebral infarction; I69.398 Other sequelae of cerebral infarction; M24.50 Contracture, unspecified joint; F10.21 Alcohol dependence, in remission; D64.9 Anemia, unspecified; R20.0 Anesthesia of skin; F31.9 Bipolar disorder, unspecified; Z87.891 Personal history of nicotine dependence; Z79.899 Other long term (current) drug therapy; Z79.82 Long term (current) use of aspirin; Z79.02 Long term (current) use of antithrombotics/antiplatelets; Z82.49 Family history of ischemic heart disease and other diseases of the circulatory system
CPT/HCPCS: 93005; 99285; 36415; 82553; 82962; 82550; 85025; 85652; 85610; 85730; 86140; 80053; 84484; 70551; 71045; 70450; 93010; A9270 ×4; J1644 ×2; J7030; G0378; J3490

== ENCOUNTER 2019-12-29 18:02 | Emergency (ER) | payer MEDICARE, MEDICAID ==
[2019-12-29 18:11] VITALS: BP 108/66
== END 2019-12-29 18:43 | disposition left against medical advice (07) ==
LOC: ER 18:02
DX: Z53.21 Procedure and treatment not carried out due to patient leaving prior to being seen by health care provider (principal); M79.603 Pain in arm, unspecified

== ENCOUNTER 2020-02-14 16:30 | Emergency (ER) | payer MEDICARE, MEDICAID ==
[2020-02-14 16:39] VITALS: BP 108/74
--- NOTE | 2020-02-14 17:26 | ER Document Report ---
HPI - HPI Time Seen by Provider: 02/14/20 17:17 Context: Patient is a 39-year-old female who presents the emergency department with a chief complaint of left ear pain. Patient has a history of a stroke and is partially nonverbal, but is able to express what she feels to her daughter, who translates her symptoms. Patient has had left ear pain for the past 3 days. States that her ear sometimes itches. Denies any fever, body aches, or chills. Patient does have left sided contractures from a previous stroke. Shakes her head yes or no appropriately when asked questions. Asked her if she had any worsening symptoms of her stroke and she shook her head no. Also asked if she has abdominal pain and she shook her head no. Patient noted that she had history of pancreatitis, but denies any abdominal pain. - ROS Systems Reviewed and Negative: Yes All other systems reviewed and negative - CONSTITUTIONAL Constitutional: DENIES: Fever, Chills - EENT EENT: REPORTS: Ear Pain - left - NEURO Neurology: DENIES: Headache, Weakness - CARDIOVASCULAR Cardiovascular: DENIES: Chest pain - RESPIRATORY Respiratory: DENIES: Trouble Breathing, Coughing - REPRODUCTIVE Reproductive: DENIES: : - MUSCULOSKELETAL Musculoskeletal: DENIES: Extremity pain - DERM Skin Color: Normal Skin Problems: None Past Medical History - General Information source: Relative - daughter - Social History Smoking Status: Former Smoker Family History: DM, Hypertension - Past Medical History Cardiac Medical History: Reports: Hx Hypertension Denies: Hx Coronary Artery Disease, Hx Heart Attack Pulmonary Medical History: Denies: Hx Asthma, Hx Bronchitis, Hx COPD, Hx Pneumonia, Hx Tuberculosis Neurological Medical History: Reports: Hx Cerebrovascular Accident - Last MRI on 03/14/2013 showed bilateral acute and chronic infarcts in the c, Hx Migraine. Denies: Hx Seizures Endocrine Medical History: Reports: Hx Diabetes Mellitus Type 2. Denies: Hx Diabetes Mellitus Type 1 Renal/ Medical History: Denies: Hx Peritoneal Dialysis GI Medical History: Reports: Hx Diverticulitis, Hx Gastroesophageal Reflux Disease, Hx Pancreatitis Musculoskeletal Medical History: Denies Hx Arthritis Psychiatric Medical History: Reports: Hx Anxiety, Hx Bipolar Disorder, Hx Depression Past Surgical History: Reports: Hx Section - x1, Hx Cholecystectomy, Hx Pancreatic Surgery - stents. Denies: Hx Pacemaker - Immunizations Immunizations up to date: No Hx Diphtheria, Pertussis, Tetanus Vaccination: Yes Hx Pneumococcal Vaccination: 07/16/00 Vertical Provider Document - CONSTITUTIONAL Agree With Documented VS: Yes Exam Limitations: No Limitations General Appearance: No Apparent Distress - INFECTION CONTROL TRAVEL OUTSIDE OF THE [place] IN LAST 30 DAYS: No - HEENT HEENT: Atraumatic, Normocephalic, PERRLA. negative: Tympanic Membrane Red, Tympanic Membrane Bulging Notes: edema and erythema noted to left external auditory canal - NECK Neck: Normal Inspection - RESPIRATORY Respiratory: Breath Sounds Normal, No Respiratory Distress - CARDIOVASCULAR Cardiovascular: Regular Rate, Regular Rhythm Pulses: Normal: Radial - MUSCULOSKELETAL/EXTREMETIES Musculoskeletal/Extremeties: FROM - NEURO Level of Consciousness: Awake, Alert, Appropriate Motor/Sensory: No Motor Deficit, No Sensory Deficit - DERM Integumentary: Warm, Dry, No Rash Course - Re-evaluation Re-evalutation: 02/14/20 17:28 Patient's physical exam and history is consistent with otitis externa. Patient will be placed on Ciprodex drops. I do not suspect patient has mastoiditis, as there is no pain at the mastoid process. Follow-up precautions were given. Verbal discharge instructions were given to the patient and daughter. They verbalized understanding. They are stable for discharge. - Vital Signs Vital signs: Temp Pulse Resp BP Pulse Ox 98.7 F 81 18 108/74 100 02/14/20 16:36 02/14/20 16:36 02/14/20 16:36 02/14/20 16:36 02/14/20 16:36 Discharge - Discharge Clinical Impression: Otitis externa Qualifiers: Otitis externa type: unspecified type Chronicity: acute Laterality: left Qualified Code(s): H60.502 - Unspecified acute noninfective otitis externa, left ear Condition: Stable Disposition: HOME, SELF-CARE Instructions: Use of Ear Drops ([facility]), Otitis Externa ([facility]) Additional Instructions: Otitis Externa You have otitis externa -- an infection of the outer ear canal. This can be very painful. It's sometimes called "swimmer's ear," because it often occurs after prolonged water exposure. Many things, such as earwax and dirt in the ear, can contribute to it. The usual treatment is antibiotic/antiinflammatory ear drops. Occasionally, a wick will be placed in the ear to draw in the medicine. If the infection is severe, an oral antibiotic may be prescribed. Pain medication is often needed. Avoid getting water in the ear. Outer ear infections often take longer to heal than you might expect. Some tenderness and ache in the ear may persist for about two weeks. See your physician if you fail to improve as expected. Call the doctor at once if you develop fever, increasing swelling (particularly if it makes your ear "poke out"), severe headache, stiff neck, or decreased hearing. Prescriptions: Ciprofloxacin HCl/Dexameth [Ciprodex Otic Suspension 7.5 ml Bottle] 4 drop OT BID 7 Days #1 bottle Referrals: VANESSA PERALTA DO [Primary Care Provider] - Follow up in 1 week
== END 2020-02-14 17:29 | disposition home or self-care (01) ==
LOC: ER 16:30
DX: H60.502 Unspecified acute noninfective otitis externa, left ear (principal); H92.02 Otalgia, left ear; Z87.891 Personal history of nicotine dependence; E11.9 Type 2 diabetes mellitus without complications; I10 Essential (primary) hypertension
CPT/HCPCS: 99282

== ENCOUNTER 2020-04-08 18:38 | Emergency (ER) | payer MEDICARE, MEDICAID ==
[2020-04-08 19:21] VITALS: BP 122/64
--- NOTE | 2020-04-08 19:26 | ER Document Report ---
ED Medical Screen (RME) - General Chief Complaint: Inability to Void Stated Complaint: UNABLE TO URINATE/PAIN LEFT ARM Time Seen by Provider: 04/08/20 19:20 Primary Care Provider: VANESSA PERALTA DO [Primary Care Provider] - Follow up as needed Notes: Patient is a 39-year-old female with a history of a stroke with left-sided deficits and expressive aphasia who presents emergency department with a chief complaint of inability to void. Patient's son is at bedside and is able to help translate patient's speech. Patient has had some decreased urine output for the past 3 days. Patient has the sensation of needing to void, but only gets a little bit of urine out. Exam: Slightly tender mid lower abdomen. I have greeted and performed a rapid initial assessment of this patient. A comprehensive ED assessment and evaluation of the patient, analysis of test results and completion of medical decision making process will be conducted by an additional ED providers. TRAVEL OUTSIDE OF THE [place] IN LAST 30 DAYS: No - Related Data Allergies/Adverse Reactions: No Known Allergies Allergy (Verified 02/14/20 17:17) Past Medical History - Past Medical History Cardiac Medical History: Reports: Hx Hypertension Denies: Hx Coronary Artery Disease, Hx Heart Attack Pulmonary Medical History: Denies: Hx Asthma, Hx Bronchitis, Hx COPD, Hx Pneumonia, Hx Tuberculosis Neurological Medical History: Reports: Hx Cerebrovascular Accident - Last MRI on 03/14/2013 showed bilateral acute and chronic infarcts in the c, Hx Migraine. Denies: Hx Seizures Endocrine Medical History: Reports: Hx Diabetes Mellitus Type 2. Denies: Hx Diabetes Mellitus Type 1 Renal/ Medical History: Denies: Hx Peritoneal Dialysis GI Medical History: Reports: Hx Diverticulitis, Hx Gastroesophageal Reflux Disease, Hx Pancreatitis Musculoskeltal Medical History: Denies Hx Arthritis Psychiatric Medical History: Reports: Hx Anxiety, Hx Bipolar Disorder, Hx Depression Past Surgical History: Reports: Hx Section - x1, Hx Cholecystectomy, Hx Pancreatic Surgery - stents. Denies: Hx Pacemaker - Immunizations Immunizations up to date: No Hx Diphtheria, Pertussis, Tetanus Vaccination: Yes Physical Exam - Vital signs Vitals: Temp 98.5 F 04/08/20 18:39 Course - Vital Signs Vital signs: Temp Pulse Resp BP Pulse Ox 98.5 F 72 20 122/64 99 04/08/20 19:20 04/08/20 19:20 04/08/20 19:20 04/08/20 19:20 04/08/20 19:20 Doctor's Discharge - Discharge Referrals: VANESSA PERALTA DO [Primary Care Provider] - Follow up as needed
[2020-04-08 20:39] LABS: APPEARANCE,URINE CLEAR; BILIRUBIN,URINE NEGATIVE (NEGATIVE); COLOR,URINE COLORLESS; GLUCOSE, URINE NEGATIVE (NEGATIVE); KETONES,URINE NEGATIVE (NEGATIVE); PROTEIN,URINE NEGATIVE (NEGATIVE); URINE SPECIFIC GRAVITY 1.002; UROBILINOGEN,URINE NEGATIVE mg/dL (<2.0)
== END 2020-04-08 20:45 | disposition left against medical advice (07) ==
LOC: ER 18:38
DX: Z53.20 Procedure and treatment not carried out because of patient's decision for unspecified reasons (principal); R33.9 Retention of urine, unspecified; M79.602 Pain in left arm; I10 Essential (primary) hypertension
CPT/HCPCS: 81001; 99281

== ENCOUNTER 2020-05-09 20:20 | Emergency (ER) | payer MEDICARE, MEDICAID ==
--- NOTE | 2020-05-09 20:46 | ER Document Report ---
ED Medical Screen (RME) - General Stated Complaint: ABDOMINAL PAIN,BLOOD IN URINE Time Seen by Provider: 05/09/20 20:40 Primary Care Provider: VANESSA PERALTA DO [Primary Care Provider] - Follow up as needed Notes: Patient presents with complaints of abdominal pain for the past week. Patient had blood in the urine. No fever, no nausea or vomiting. Patient with a history of CVA and expressive aphasia. I have greeted and performed a rapid initial assessment of this patient. A comprehensive ED assessment and evaluation of the patient, analysis of test results and completion of the medical decision making process will be conducted by additional ED providers. TRAVEL OUTSIDE OF THE [place] IN LAST 30 DAYS: No - Related Data Allergies/Adverse Reactions: No Known Allergies Allergy (Verified 02/14/20 17:17) Past Medical History - Past Medical History Cardiac Medical History: Reports: Hx Hypertension Denies: Hx Coronary Artery Disease, Hx Heart Attack Pulmonary Medical History: Denies: Hx Asthma, Hx Bronchitis, Hx COPD, Hx Pneumonia, Hx Tuberculosis Neurological Medical History: Reports: Hx Cerebrovascular Accident - Last MRI on 03/14/2013 showed bilateral acute and chronic infarcts in the c, Hx Migraine. Denies: Hx Seizures Endocrine Medical History: Reports: Hx Diabetes Mellitus Type 2. Denies: Hx Diabetes Mellitus Type 1 Renal/ Medical History: Denies: Hx Peritoneal Dialysis GI Medical History: Reports: Hx Diverticulitis, Hx Gastroesophageal Reflux Disease, Hx Pancreatitis Musculoskeltal Medical History: Denies Hx Arthritis Psychiatric Medical History: Reports: Hx Anxiety, Hx Bipolar Disorder, Hx Depression Past Surgical History: Reports: Hx Section - x1, Hx Cholecystectomy, Hx Pancreatic Surgery - stents. Denies: Hx Pacemaker - Immunizations Immunizations up to date: No Hx Diphtheria, Pertussis, Tetanus Vaccination: Yes Physical Exam - Vital signs Vitals: Temp Pulse Resp BP Pulse Ox 98.5 F 72 17 103/68 99 05/09/20 20:33 05/09/20 20:33 05/09/20 20:33 05/09/20 20:33 05/09/20 20:33 - Abdominal Tenderness: Tender - Periumbilical tenderness, exam limited as patient is in wheelchair - Back Back: No: CVA tenderness Course - Vital Signs Vital signs: Temp Pulse Resp BP Pulse Ox 98.5 F 72 17 103/68 99 05/09/20 20:33 05/09/20 20:33 05/09/20 20:33 05/09/20 20:33 05/09/20 20:33 Doctor's Discharge - Discharge Referrals: VANESSA PERALTA DO [Primary Care Provider] - Follow up as needed
[2020-05-09 21:22] LABS: ABSOLUTE BASOPHILS # (AUTO) 0.1 10^3/uL (0.0-0.2); ABSOLUTE EOSINOPHILS # (AUTO) 0.4 10^3/uL (0.0-0.6); ABSOLUTE LYMPHOCYTES (AUTO) 1.1 10^3/uL (0.5-4.7); ABSOLUTE MONOCYTES (AUTO) 0.5 10^3/uL (0.1-1.4); ABSOLUTE NEUT (AUTO) 5.6 10^3/uL (1.7-8.2); BASOPHILS % (AUTO) 0.7 % (0-2); EOSINOPHILS % (AUTO) 5.3 % (0-6); HEMATOCRIT 32.6 % (36.0-47.0); LYMPHOCYTES % (AUTO) 14.8 % (13-45); MEAN CORPUSCULAR HEMOGLOBIN 28.7 pg (27.0-33.4); MEAN CORPUSCULAR HGB CONC 33.6 g/dL (32.0-36.0); MEAN CORPUSCULAR VOLUME 85 fl (80-97); PLATELET COUNT 284 10^3/uL (150-450); RED BLOOD COUNT 3.82 10^6/uL (3.72-5.28); RED CELL DISTRIBUTION WIDTH 15.1 % (11.5-14.0); SEGMENTED NEUTROPHILS % (AUTO) 73.2 % (42-78); TOTAL CELLS COUNTED % (AUTO) 100 %; WHITE BLOOD COUNT 7.6 10^3/uL (4.0-10.5)
[2020-05-09 21:43] LABS: ALBUMIN 4.2 g/dL (3.5-5.0); ALKALINE PHOSPHATASE 90 U/L (38-126); ANION GAP 9 (5-19); ASPARTATE AMINO TRANSFERASE 34 U/L (14-36); BILIRUBIN,DIRECT 0.2 mg/dL (0.0-0.4); BILIRUBIN,TOTAL 0.6 mg/dL (0.2-1.3); BLOOD UREA NITROGEN 17 mg/dL (7-20); CALCIUM 9.2 mg/dL (8.4-10.2); CARBON DIOXIDE 23 mmol/L (22-30); CHLORIDE 110 mmol/L (98-107); GLUCOSE 95 mg/dL (75-110); TOTAL PROTEIN 6.9 g/dL (6.3-8.2)
[2020-05-09] MEDS ORDERED: MORPHINE SULFATE 10 MG/ML INJ IV ONE (23:56)
--- NOTE | 2020-05-10 00:01 | ER Document Report ---
ED GI/ - General Chief Complaint: Urinary Problem Stated Complaint: ABDOMINAL PAIN,BLOOD IN URINE Time Seen by Provider: 05/09/20 20:40 Primary Care Provider: VANESSA PERALTA DO [Primary Care Provider] - 05/13/20 Notes: Patient is a 39-year-old female who comes emergency department for chief complaint of abdominal pain that has been worsening for 1 week. Patient denies vomiting, fever, or flank pain. Pain is in the mid to lower abdomen based on the area she is indicating. Patient denies painful urination, she states her bowel movements have been normal but the last time she had a bowel movement earlier today she thought she saw some blood in the stool. She has never had a colonoscopy. She reports she has had a cholecystectomy and stents in her pancreas. Patient also has a history of extensive CVA, expressive aphasia, and is wheelchair-bound. As result history is difficult and daughter at bedside as sists. Past medical history also includes type 2 diabetes, hypertension. TRAVEL OUTSIDE OF THE [place] IN LAST 30 DAYS: No - Related Data Allergies/Adverse Reactions: No Known Allergies Allergy (Verified 02/14/20 17:17) Past Medical History - General Information source: Patient, Relative - Daughter - Social History Smoking Status: Never Smoker Frequency of alcohol use: None Drug Abuse: None Lives with: Family Family History: DM, Hypertension - Past Medical History Cardiac Medical History: Reports: Hx Hypertension Denies: Hx Coronary Artery Disease, Hx Heart Attack Pulmonary Medical History: Denies: Hx Asthma, Hx Bronchitis, Hx COPD, Hx Pneumonia, Hx Tuberculosis Neurological Medical History: Reports: Hx Cerebrovascular Accident - Last MRI on 03/14/2013 showed bilateral acute and chronic infarcts in the c, Hx Migraine. Denies: Hx Seizures Endocrine Medical History: Reports: Hx Diabetes Mellitus Type 2. Denies: Hx Diabetes Mellitus Type 1 Renal/ Medical History: Denies: Hx Peritoneal Dialysis GI Medical History: Reports: Hx Diverticulitis, Hx Gastroesophageal Reflux Disease, Hx Pancreatitis Musculoskeletal Medical History: Denies Hx Arthritis Psychiatric Medical History: Reports: Hx Anxiety, Hx Bipolar Disorder, Hx Depression Past Surgical History: Reports: Hx Section - x1, Hx Cholecystectomy, Hx Pancreatic Surgery - stents. Denies: Hx Pacemaker - Immunizations Immunizations up to date: No Hx Diphtheria, Pertussis, Tetanus Vaccination: Yes Hx Pneumococcal Vaccination: 07/16/00 Review of Systems - Review of Systems Constitutional: See HPI EENT: No symptoms reported Cardiovascular: No symptoms reported Respiratory: No symptoms reported Gastrointestinal: See HPI Genitourinary: No symptoms reported Female Genitourinary: No symptoms reported Musculoskeletal: No symptoms reported Skin: No symptoms reported Hematologic/Lymphatic: No symptoms reported Neurological/Psychological: No symptoms reported Physical Exam - Vital signs Vitals: Temp Pulse Resp BP Pulse Ox 98.5 F 72 17 103/68 99 05/09/20 20:33 05/09/20 20:33 05/09/20 20:33 05/09/20 20:33 05/09/20 20:33 - Notes Notes: GENERAL: Alert, interacts well. No acute distress. Smiling and interactive HEAD: Normocephalic, atraumatic. EYES: Pupils equal, round, and reactive to light. Extraocular movements intact. ENT: Oral mucosa moist, tongue midline. Oropharynx unremarkable. Airway patent. NECK: Full range of motion. Supple. Trachea midline. No lymphadenopathy. LUNGS: Clear to auscultation bilaterally, no wheezes, rales, or rhonchi. No respiratory distress. Non-tender chest wall. HEART: Regular rate and rhythm. No murmur ABDOMEN: Soft, non-tender. Non-distended. Bowel sounds present in all 4 quadrants. GENITOURINARY: Deferred EXTREMITIES: Moves all 4 extremities spontaneously. No edema, normal radial and dorsalis pedis pulses bilaterally. No cyanosis. BACK: no cervical, thoracic, lumbar midline tenderness. No saddle anesthesia, normal distal neurovascular exam. Moves all extremities in full range of motion. NEUROLOGICAL: Alert and cooperative. Very difficult to understand speech. Cranial nerves II through XII grossly intact. Difficulty with coordination in both arms, reduced strength in both legs. PSYCH: Normal affect, normal mood. SKIN: Warm, dry, normal turgor. No rashes or lesions noted. There are [address] over the right upper forehead which appear old. No surrounding erythema, tenderness, induration, fluctuance. Course - Re-evaluation Re-evalutation: Patient noted to have 3 sutures in the right upper forehead without surrounding infection, these apparently were placed weeks ago per her granddaughter and never taken out. Area was cleaned with alcohol, removed easily, cleaned again, no signs of infection or complication. Patient is very interactive and smiling, she is very difficult to understand with her expressive aphasia, she seems to be enjoying the interaction however. She does not appear to be in any pain. However when I palpate her mid to lower abdomen especially centrally she complains of discomfort. It is difficult to assess the level discomfort based on the communication barrier. Vital signs unremarkable, CBC and chemistry are unremarkable, urinalysis shows positive nitrites with 3+ bacteria suggesting UTI, however because patient reported bloody stool with lower abdominal pain decision was made to perform a CAT scan to rule out acute etiology including complicated diverticulitis. CT of the abdomen without any acute findings. Patient was able to have a bowel movement, this was assessed, this was brown, normal, no signs of blood. Patient also has no hematuria. I discussed with patient and daughter. Patient will be placed on treatment for suspected cystitis, I discussed return precautions in regards to signs of developing acute abdomen or severe infection, discussed close follow-up. They state appreciation and agreement. Stable and well- appearing at time of discharge. - Vital Signs Vital signs: Temp Pulse Resp BP Pulse Ox 98.5 F 72 19 119/71 96 05/09/20 20:33 05/09/20 20:33 05/10/20 02:00 05/10/20 03:25 05/10/20 03:25 - Laboratory Result Diagrams: 05/09/20 21:13 05/09/20 21:13 Laboratory results interpreted by me: 05/09/20 05/09/20 05/09/20 21:13 21:13 21:13 Hgb 11.0 L Hct 32.6 L RDW 15.1 H Chloride 110 H Lipase < 10.0 L Urine Nitrite Urine Ascorbic Acid 05/10/20 01:05 Hgb Hct RDW Chloride Lipase Urine Nitrite POSITIVE H Urine Ascorbic Acid 40 H Discharge - Discharge Clinical Impression: Lower abdominal pain Condition: Stable Disposition: HOME, SELF-CARE Additional Instructions: Your work-up indicates a urinary tract infection, probably a bladder infection, however no other concerning findings are seen. Take the antibiotics as prescribed to completion. Follow-up closely with your primary care for additional management. Come back if you are worse including vomiting, fever/chills, severe worsening pain, or any other concerning symptoms. Prescriptions: Cephalexin Monohydrate [Keflex 500 mg Capsule] 500 mg PO BID 7 Days #14 capsule Referrals: VANESSA PERALTA DO [Primary Care Provider] - 05/13/20
[2020-05-10 02:01] LABS: APPEARANCE,URINE CLEAR; BILIRUBIN,URINE NEGATIVE (NEGATIVE); COLOR,URINE YELLOW; GLUCOSE, URINE NEGATIVE (NEGATIVE); KETONES,URINE NEGATIVE (NEGATIVE); LEUKOCYTE ESTERASE,URINE NEGATIVE (NEGATIVE); NITRITE,URINE POSITIVE (NEGATIVE); PROTEIN,URINE NEGATIVE (NEGATIVE); URINE SPECIFIC GRAVITY 1.015; UROBILINOGEN,URINE NEGATIVE mg/dL (<2.0)
--- NOTE | 2020-05-10 02:12 | RADIOLOGY REPORT (SQ) ---
CT abdomen and pelvis with contrast on 05/10/2020 1:25 AM CLINICAL INDICATION: Lower abdominal pain, blood in stool TECHNIQUE: Multiple axial images are obtained throughout the abdomen and pelvis following the administration of IV contrast, 62 mL of Omnipaque 350contrast was administered intravenously without complication. This exam was performed according to our departmental dose-optimization program, which includes automated exposure control, adjustment of the mA and/or kV according to patient size and/or use of iterative reconstruction technique. Total DLP is 568.9 mGy*cm. COMPARISON: 11/28/2018 FINDINGS: Abdomen: There is minimal basilar atelectasis. The patient is status post cholecystectomy. There are calcifications in the pancreas with pancreatic atrophy consistent with changes of chronic pancreatitis. No definite CT evidence of acute pancreatitis is noted. The solid abdominal organs are otherwise unremarkable. There is no abdominal adenopathy. There is no free fluid or free air within the abdomen. There is diverticulosis. The abdominal portion of the GI tract is otherwise unremarkable. Mild anasarca is noted in the subcutaneous tissues. Pelvis: Pelvic organs appear unremarkable by CT. No free fluid is noted in the pelvis. There is no pelvic adenopathy. Pelvic portion of the GI tract is unremarkable. No definite site of active GI bleeding is noted. Degenerative changes are noted in the spine. IMPRESSION: 1. Diverticulosis. 2. Changes of chronic pancreatitis. 3. No acute abnormality noted.
[2020-05-10] MEDS ORDERED: CEPHALEXIN 500 MG CAPSULE PO ONE (03:04)
[2020-05-10 03:33] VITALS: BP 119/71
== END 2020-05-10 03:34 | disposition home or self-care (01) ==
LOC: ER 20:20
DX: R10.30 Lower abdominal pain, unspecified (principal); I10 Essential (primary) hypertension; E11.9 Type 2 diabetes mellitus without complications; I69.320 Aphasia following cerebral infarction; Z87.19 Personal history of other diseases of the digestive system; Z90.49 Acquired absence of other specified parts of digestive tract; Z99.3 Dependence on wheelchair
CPT/HCPCS: 99285; 96374; 36415; 87086; 83690; 84703; 85025; 87088; 80053; 81001; 87186; 74177; A9270; J2270

== ENCOUNTER 2020-07-01 17:54 | Observation (INO) | payer MEDICARE, MEDICAID ==
--- NOTE | 2020-07-01 18:22 | ER Document Report ---
ED Neuro Symptoms/Deficit - General Chief Complaint: S/S of Possible Stroke Stated Complaint: POSSIBLE STROKE Time Seen by Provider: 07/01/20 18:12 Primary Care Provider: VANESSA PERALTA DO [Primary Care Provider] - Follow up as needed Mode of Arrival: Medic Information source: Patient, Relative - as relayed to EMS., Emergency Med Personnel Notes: MY NOTES 40-year-old female arrived by EMS after patient exhibited symptoms of facial droop on right side. Patient has history of ataxia and usually is able to ambulate walking in her home but not today. This occurred around 1700. Patient able to nod yes and no to EMS and nursing staff. Patient has been here at [facility] in the past. Patient takes aspirin Topamax Zyprexa atorvastatin and Plavix TRAVEL OUTSIDE OF THE [place] IN LAST 30 DAYS: No - HPI Patient complains to provider of: Difficulty walking - Related Data Allergies/Adverse Reactions: No Known Allergies Allergy (Verified 02/14/20 17:17) Past Medical History - General Information source: Patient, Relative - , Emergency Med Personnel - Social History Smoking Status: Never Smoker Cigarette use (# per day): No Chew tobacco use (# tins/day): No Smoking Education Provided: No Frequency of alcohol use: None Drug Abuse: None Lives with: Family Family History: DM, Hypertension Patient has suicidal ideation: No Patient has homicidal ideation: No - Past Medical History Cardiac Medical History: Reports: Hx Hypertension Denies: Hx Coronary Artery Disease, Hx Heart Attack Pulmonary Medical History: Denies: Hx Asthma, Hx Bronchitis, Hx COPD, Hx Pneumonia, Hx Tuberculosis Neurological Medical History: Reports: Hx Cerebrovascular Accident - Last MRI on 03/14/2013 showed bilateral acute and chronic infarcts in the c, Hx Migraine. Denies: Hx Seizures Endocrine Medical History: Reports: Hx Diabetes Mellitus Type 2. Denies: Hx Diabetes Mellitus Type 1 Renal/ Medical History: Denies: Hx Peritoneal Dialysis GI Medical History: Reports: Hx Diverticulitis, Hx Gastroesophageal Reflux Disease, Hx Pancreatitis Musculoskeletal Medical History: Denies Hx Arthritis Psychiatric Medical History: Reports: Hx Anxiety, Hx Bipolar Disorder, Hx Depression Past Surgical History: Reports: Hx Section - x1, Hx Cholecystectomy, Hx Pancreatic Surgery - stents. Denies: Hx Pacemaker - Immunizations Immunizations up to date: No Hx Diphtheria, Pertussis, Tetanus Vaccination: Yes Hx Pneumococcal Vaccination: 07/16/00 Review of Systems - Review of Systems Constitutional: See HPI, Malaise, Weakness EENT: No symptoms reported Cardiovascular: No symptoms reported Respiratory: No symptoms reported Gastrointestinal: See HPI, Abdominal pain Genitourinary: No symptoms reported Female Genitourinary: No symptoms reported Musculoskeletal: No symptoms reported Skin: No symptoms reported Hematologic/Lymphatic: No symptoms reported Neurological/Psychological: No symptoms reported Physical Exam - Vital signs Interpretation: Normal - General General appearance: Appears well, Alert - HEENT Head: Normocephalic, Atraumatic Eyes: Normal Conjunctiva: Normal Cornea: Normal Extraocular movements intact: Yes Eyelashes: Normal Pupils: PERRL Sinus: Normal Nasal: Normal Mouth/Lips: Normal, Other - Protuberant torus in upper palate Mucous membranes: Dry - Tongue is midline Pharynx: Normal - Otherwise within normal limits Neck: Normal - Respiratory Respiratory status: No respiratory distress Chest status: Nontender Breath sounds: Normal Chest palpation: Normal - Cardiovascular Rhythm: Regular Heart sounds: Normal auscultation Murmur: No - Abdominal Inspection: Normal Distension: No distension Bowel sounds: Normal Tenderness: Tender - Right upper quadrant and periumbilical patient denies preg carlos by shaking head no Organomegaly: No organomegaly - Back Back: Normal, Nontender - Extremities General upper extremity: Normal inspection, Nontender, Normal color, Normal ROM, Normal temperature General lower extremity: Normal inspection, Nontender, Normal color, Normal ROM, Normal temperature, Normal weight bearing. No: Juana's sign - Neurological Neuro grossly intact: No Cognition: Normal Orientation: AAOx4 [place] Coma Scale Eye Opening: Spontaneous [place] Coma Scale Verbal: Oriented [place] Coma Scale Motor: Obeys Commands [place] Coma Scale Total: 15 Speech: Dysarthria Cranial nerves: Other - No speech understandable. Cerebellar coordination: Heel-[place] Motor strength normal: RUE, LLE, RLE - Bilateral lower extremities with feet with dorsiflexion plantarflexion within normal limits Additional motor exam normals: Other - Unable to use left arm. Radial ulnar pulses within normal limits fingers and a chronic flexion Sensory: Normal - Psychological Associated symptoms: Normal affect, Normal mood - Skin Skin Temperature: Warm Skin Moisture: Dry Skin Color: Normal Course - Laboratory Results Result Diagrams: 07/01/20 18:16 07/01/20 18:16 Critical Laboratory Results Reviewed: Yes Attending or Supervising Physician who Reviewed Labs: WOOD JC JR - Radiology Results Radiology Results Interpreted: 07/01/20 21:08 Dr. Royal radiologist read these x-ray CT scan head Critical Radiology Results Reviewed: No Critical Results Attending or Supervising Physician who Reviewed Radiology: WOOD JC JR - EKG Interpretation by Me EKG shows normal: Sinus rhythm Rate: Normal Rhythm: NSR - [address] elevation no ST depression and no T wave elevation and no T wave depression no STEMI and axis within normal limits and this was read by myself and I agree with the EKG machine findings as well. Critical Care Note - Critical Care Note Comments: I spoke with neurologist Dr. Bryan Magallanes through the transfer center at [facility] at 1845 and initially helicopters were dispensed for this patient but after conversation with about this patient with a history of chronic aphasia and ataxia it was advised patient does not need to be transferred. I did speak with Dr. Munir Roberts about this patient for potential admission. This was done at 2100 and he advises he will see this patient. CTA was essentially within normal limits per radiology. Discharge - Discharge Clinical Impression: TIA (transient ischemic attack) Condition: Stable Disposition: ADMITTED INPATIENT Unit Admitted: Medical Floor Referrals: VANESSA PERALTA DO [Primary Care Provider] - Follow up as needed
[2020-07-01 18:27] LABS: ABSOLUTE EOSINOPHILS # (AUTO) 0.2 10^3/uL (0.0-0.6); ABSOLUTE LYMPHOCYTES (AUTO) 1.1 10^3/uL (0.5-4.7); ABSOLUTE MONOCYTES (AUTO) 0.4 10^3/uL (0.1-1.4); INTERNATIONAL RATION (INR) 1.15; PARTIAL THROMBOPLASTIN TIME 33.6 SEC (23.5-35.8); PROTHROMBIN TIME 14.9 SEC (11.4-15.4); TOTAL CELLS COUNTED % (AUTO) 100 %
--- NOTE | 2020-07-01 18:27 | RADIOLOGY REPORT (SQ) ---
EXAM DESCRIPTION: CT HEAD WITHOUT IMAGES COMPLETED DATE/TIME: 07/01/2020 6:17 pm REASON FOR STUDY: cva sx COMPARISON: 10/09/2019 TECHNIQUE: Axial images acquired through the brain without intravenous contrast. Images reviewed wi th bone, brain and subdural windows. Additional sagittal and coronal reconstructions were generated. Images stored on PACS. All CT scanners at this facility use dose modulation, iterative reconstruction, and/or weight based d osing when appropriate to reduce radiation dose to as low as reasonably achievable (ALARA). [facility]: Dose Right [facility]: CareDose [facility]: Dose Right [facility]: Teradose 4D [facility]: Smart Digital Sports RADIATION DOSE: mGy. LIMITATIONS: None. FINDINGS: VENTRICLES: Normal size and contour. CEREBRUM: No masses. No hemorrhage. No midline shift. Old right occipital infarction. Old infarct ion in the distribution of the right middle cerebral artery. Old left frontal infarction. No eviden ce for acute infarction. Extensive areas of low density in the white matter most likely chronic small vessel ischemic changes. CEREBELLUM: No masses. No hemorrhage. No alteration of density. No evidence for acute infarction. EXTRAAXIAL SPACES: No fluid collections. No masses. ORBITS AND GLOBE: No intra- or extraconal masses. Normal contour of globe without masses. CALVARIUM: No fracture. PARANASAL SINUSES: No fluid or mucosal thickening. SOFT TISSUES: No mass or hematoma. OTHER: No other significant finding. IMPRESSION: Chronic ischemic changes. No acute intracranial imaging findings. EVIDENCE OF ACUTE STROKE: NO. COMMENT: Quality ID # [id number]: Final reports with documentation of one or more dose reduction techniques (e.g., Automated exposure control, adjustment of the mA and/or kV according to patient size, use of iterative reconstruction technique) TECHNICAL DOCUMENTATION: JOB ID: [id number] 2010 [employer]- All Rights Reserved Reading location - IP/workstation name: [email or web address]
[2020-07-01 18:31] LABS: ABSOLUTE NEUT (AUTO) 4.4 10^3/uL (1.7-8.2); BASOPHILS % (AUTO) 0.8 % (0-2); EOSINOPHILS % (AUTO) 3.7 % (0-6); HEMATOCRIT 31.4 % (36.0-47.0); HEMOGLOBIN 10.4 g/dL (12.0-15.5); LYMPHOCYTES % (AUTO) 17.5 % (13-45); MEAN CORPUSCULAR HEMOGLOBIN 27.4 pg (27.0-33.4); MEAN CORPUSCULAR VOLUME 83 fl (80-97); MONOCYTES % (AUTO) 6.1 % (3-13); PLATELET COUNT 264 10^3/uL (150-450); RED BLOOD COUNT 3.78 10^6/uL (3.72-5.28); RED CELL DISTRIBUTION WIDTH 15.7 % (11.5-14.0); SEGMENTED NEUTROPHILS % (AUTO) 71.9 % (42-78); WHITE BLOOD COUNT 6.1 10^3/uL (4.0-10.5)
[2020-07-01 18:44] LABS: ALBUMIN 3.8 g/dL (3.5-5.0); ALKALINE PHOSPHATASE 88 U/L (38-126); ASPARTATE AMINO TRANSFERASE 32 U/L (14-36); BILIRUBIN,TOTAL 0.4 mg/dL (0.2-1.3); BLOOD UREA NITROGEN 14 mg/dL (7-20); CALCIUM 9.3 mg/dL (8.4-10.2); CREATINE KINASE 41 U/L (30-135); GLUCOSE 97 mg/dL (75-110); POTASSIUM 4.8 mmol/L (3.6-5.0); TOTAL PROTEIN 6.7 g/dL (6.3-8.2)
[2020-07-01 18:50] LABS: ANION GAP 6 (5-19); CARBON DIOXIDE 24 mmol/L (22-30); CHLORIDE 107 mmol/L (98-107)
--- NOTE | 2020-07-01 18:59 | RADIOLOGY REPORT (SQ) ---
EXAM DESCRIPTION: CHEST SINGLE VIEW IMAGES COMPLETED DATE/TIME: 07/01/2020 6:23 pm REASON FOR STUDY: cva sx COMPARISON: 10/09/2019 EXAM PARAMETERS: NUMBER OF VIEWS: One view. TECHNIQUE: Single frontal radiographic view of the chest acquired. RADIATION DOSE: NA LIMITATIONS: None. FINDINGS: LUNGS AND PLEURA: No opacities, masses or pneumothorax. No pleural effusion. MEDIASTINUM AND HILAR STRUCTURES: No masses. Contour normal. HEART AND VASCULAR STRUCTURES: Heart normal in size. Normal vasculature. BONES: No acute findings. HARDWARE: None in the chest. OTHER: No other significant finding. IMPRESSION: NO ACUTE RADIOGRAPHIC FINDING IN THE CHEST. TECHNICAL DOCUMENTATION: JOB ID: [id number] 2010 [employer]- All Rights Reserved Reading location - IP/workstation name: [email or web address]
[2020-07-01 19:03] LABS: NT PRO BNP 872 pg/mL (<125)
[2020-07-01 19:05] LABS: TROPONIN I < 0.012 ng/mL
[2020-07-01 19:58] LABS: APPEARANCE,URINE SLIGHTLY-CLOUDY; BILIRUBIN,URINE NEGATIVE (NEGATIVE); COLOR,URINE YELLOW; GLUCOSE, URINE NEGATIVE (NEGATIVE); KETONES,URINE NEGATIVE (NEGATIVE); LEUKOCYTE ESTERASE,URINE NEGATIVE (NEGATIVE); NITRITE,URINE NEGATIVE (NEGATIVE); PROTEIN,URINE NEGATIVE (NEGATIVE); UROBILINOGEN,URINE NEGATIVE mg/dL (<2.0)
--- NOTE | 2020-07-01 20:58 | RADIOLOGY REPORT (SQ) ---
EXAM DESCRIPTION: CTA HEAD (accession [id number]), CTA NECK (accession [id number]) RadLex: CT HEAD ANGIOGRAPHY WITHOUT THEN WITH IV CONTRAST, CT NECK ANGIOGRAPHY WITHOUT THEN WITH IV CONTRAST CLINICAL HISTORY: 40 years Female; cva sx; TECHNIQUE: CT angiogram of the head and neck using intravenous contrast. MIP reconstructions were performed. Stenosis measurements performed using NASCET criteria. All CT scans at this facility use dose modulation, iterative reconstruction, and/or weight based dosing when appropriate to reduce radiation dose to as low as reasonably achievable. COMPARISON: Noncontrast CT head. 2019 FINDINGS: The slice thicknesses provided for this exam (2.5 mm axials) are inadequate for reliable interpretation of the CTA images of the head and suboptimal for interpretation of stenosis in the neck. Neck: Aortic arch: Proximal arch vessels are widely patent. Right carotid: No focal stenosis or intraluminal filling defects. Left carotid: No focal stenosis or intraluminal filling defects. Right vertebral: No focal stenosis or intraluminal filling defects. Left vertebral: No focal stenosis or intraluminal filling defects. No cervical mass or adenopathy. Head: ICA: patent Vertebrals: patent Basilar:patent WORKFORCE SERVICES REPRESENTATIVE: Likely patent Posterior communicating arteries:patent Anterior communicating artery: patent ANDERS: patent bilaterally MCA: patent bilaterally Cannot evaluate for aneurysm. Multiple areas of encephalomalacia are again noted, as on noncontrast CT. IMPRESSION: 1. No significant stenosis of the cervical carotid or vertebral arteries. 2. No acute intracranial large vessel occlusion 3. I have requested the thin slice images and will issue an addendum if additional information is derived from those images.
--- NOTE | 2020-07-01 20:58 | RADIOLOGY REPORT (SQ) ---
EXAM DESCRIPTION: CTA HEAD (accession [id number]), CTA NECK (accession [id number]) RadLex: CT HEAD ANGIOGRAPHY WITHOUT THEN WITH IV CONTRAST, CT NECK ANGIOGRAPHY WITHOUT THEN WITH IV CONTRAST CLINICAL HISTORY: 40 years Female; cva sx; TECHNIQUE: CT angiogram of the head and neck using intravenous contrast. MIP reconstructions were performed. Stenosis measurements performed using NASCET criteria. All CT scans at this facility use dose modulation, iterative reconstruction, and/or weight based dosing when appropriate to reduce radiation dose to as low as reasonably achievable. COMPARISON: Noncontrast CT head. 2019 FINDINGS: The slice thicknesses provided for this exam (2.5 mm axials) are inadequate for reliable interpretation of the CTA images of the head and suboptimal for interpretation of stenosis in the neck. Neck: Aortic arch: Proximal arch vessels are widely patent. Right carotid: No focal stenosis or intraluminal filling defects. Left carotid: No focal stenosis or intraluminal filling defects. Right vertebral: No focal stenosis or intraluminal filling defects. Left vertebral: No focal stenosis or intraluminal filling defects. No cervical mass or adenopathy. Head: ICA: patent Vertebrals: patent Basilar:patent RN HEMODIALYSIS CHARGE: Likely patent Posterior communicating arteries:patent Anterior communicating artery: patent ANDERS: patent bilaterally MCA: patent bilaterally Cannot evaluate for aneurysm. Multiple areas of encephalomalacia are again noted, as on noncontrast CT. IMPRESSION: 1. No significant stenosis of the cervical carotid or vertebral arteries. 2. No acute intracranial large vessel occlusion 3. I have requested the thin slice images and will issue an addendum if additional information is derived from those images.
[2020-07-01] MEDS ORDERED: KETOROLAC TROMETHAMINE INJ/PF 30 MG/1 ML SDV IV ONE (21:20)
[2020-07-01] MEDS ORDERED: DICYCLOMINE HCL INJ 20 MG/2 ML AMPULE IM ONE (21:20)
[2020-07-01] MEDS ORDERED: DEXTROSE 40% GEL 15 GM TUBE PO PRN ×2 (21:48)
[2020-07-01] MEDS ORDERED: GLUCAGON,HUMAN RECOMB 1 MG INJ SUBCUT PRN (21:48)
[2020-07-01] MEDS ORDERED: NORMAL SALINE 1000 ML 1,000 ML IV PRN (21:48)
[2020-07-01] MEDS ORDERED: DEXTROSE 50%-WATER 25 GM/50 ML DISP.SYRIN IV PRN ×2 (21:48)
[2020-07-01] MEDS ORDERED: ACETAMINOPHEN 325 MG TABLET PO PRN (21:48)
[2020-07-01] MEDS ORDERED: ONDANSETRON HCL INJ/PF 4 MG/2 ML SDV IV PRN (21:48)
[2020-07-01] MEDS ORDERED: BACLOFEN 10 MG TABLET PO PRN (21:56)
[2020-07-01] MEDS: FAMOTIDINE 20 MG TABLET PO SCH (22:02)
--- NOTE | 2020-07-01 22:26 | PDOC H&P ---
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 Due to severe expressive aphasia 3 is partly from ED physician signout and record review. She has been extensively worked up in the past and so far clear etiology has not been identified. Patient is able to follow commands and is able to answer questions with sign. Neurology at [facility] was consulted by ED physician and case was discussed with her neurologist Dr. Bryan Magallanes who recommended conservative medical management. Of note patient also reports with a sign that she has been having pain in her abdomen pointing to her right upper quadrant area. She also stated that she has been having few episodes of vomiting with the last being a day ago. She also has been having dysuria in the past few days. She denies chest pain, palpitation, loss of consciousness, abnormal body movement or bowel or urinary incontinence. Past Medical History Cardiac Medical History: Reports: Hypertension Denies: Coronary Artery Disease, Myocardial Infarction Pulmonary Medical History: Denies: Asthma, Bronchitis, Chronic Obstructive Pulmonary Disease (COPD), Pneumonia, Tuberculosis Neurological Medical History: Reports: Migraine Denies: Seizures Endocrine Medical History: Reports: Diabetes Mellitus Type 2 Denies: Diabetes Mellitus Type 1 GI Medical History: Reports: Diverticulitis, Gastroesophageal Reflux Disease Musculoskeltal Medical History: Denies: Arthritis Psychiatric Medical History: Reports: Bipolar Disorder, Depression Hematology: Denies: Anemia Past Surgical History Past Surgical History: Reports: Section - x1, Cholecystectomy Denies: Pacemaker Social History Information Source: Patient Lives with: Family Smoking Status: Never Smoker Electronic Cigarette use?: No Frequency of Alcohol Use: None Hx Recreational Drug Use: No Hx Prescription Drug Abuse: No - Advance Directive Resuscitation Status: Full Code Family History Family History: DM, Hypertension Parental Family History Reviewed: Yes Children Family History Reviewed: Yes Sibling(s) Family History Reviewed.: Yes Medication/Allergy Home Medications: Atorvastatin Calcium [Lipitor 80 mg Tablet] 80 mg PO QHS 10/09/19 Fluoxetine HCl 40 mg PO DAILY 10/09/19 Olanzapine 10 mg PO QHS 10/09/19 Oxycodone HCl/Acetaminophen [Oxycodone-Acetaminophen 10-325] 1 tab PO Q6HP PRN 10/09/19 Topiramate [Topamax 100 mg Tablet] 200 mg PO Q12 10/09/19 Aspirin [Ecotrin 81 mg EC Tablet] 81 mg PO DAILY 07/01/20 Baclofen [Baclofen 10 mg Tablet] 10 mg PO TIDP PRN 07/01/20 Allergies/Adverse Reactions: No Known Allergies Allergy (Verified 02/14/20 17:17) Review of Systems Constitutional: ABSENT: chills, fever(s) Eyes: ABSENT: visual disturbances Ears: ABSENT: hearing changes Nose, Mouth, and Throat: ABSENT: mouth pain, sore throat Cardiovascular: ABSENT: chest pain, dyspnea on exertion, edema, orthropnea, palpitations Respiratory: ABSENT: cough, hemoptysis Gastrointestinal: PRESENT: as per HPI Genitourinary: PRESENT: as per HPI Musculoskeletal: PRESENT: deformity, muscle weakness Integumentary: ABSENT: rash, wounds Neurological: PRESENT: as per HPI Endocrine: ABSENT: cold intolerance, heat intolerance, polydipsia, polyuria Hematologic/Lymphatic: ABSENT: easy bleeding, easy bruising Physical Exam Vital Signs: Temp Pulse Resp BP Pulse Ox 99.3 F 60 18 117/64 100 07/01/20 17:55 07/01/20 17:55 07/01/20 20:01 07/01/20 20:01 07/01/20 20:01 Intake & Output 06/30/20 07/01/20 07/02/20 06:59 06:59 06:59 Weight 54.431 kg Additional comments: GENERAL APPEARANCE: Alert and oriented x3, in no acute distress HEENT: Normocephalic and atraumatic. No scleral icterus. Moist oral mucosa NECK: Supple. No lymphadenopathy or tenderness. No JVD CHEST: Symmetric. Nontender to palpation. LUNGS: Clear with good air entry bilaterally. No wheezing or crackles HEART: Regular rate and rhythm with normal S1 and S2. No murmurs, gallops, or rubs. ABDOMEN: Flat, soft, active bowel sounds, no direct or rebound tenderness. No organomegaly detected. EXTREMITIES: No cyanosis, clubbing, or edema. MUSCULOSKELETAL: Has severe contracture on the left upper extremity with some r igidity SKIN: Warm, dry, and well perfused. No lesions or rashes are noted. NEUROLOGIC: Cranial nerves II to XII are grossly intact, exam limited due to expressive aphasia Power is 5/5 in right upper and bilateral lower extremities but difficult to assess on the left upper extremity due to rigidity and contracture Sensation was intact to light touch symmetrically on both upper and lower extremities Reflexes are +2 bilaterally in lower extremities symmetrically. Difficult to perform reflexes in the left upper extremity due to contracture Gait was not checked due to risk of fall Results Laboratory Results: 07/01/20 18:16 07/01/20 18:16 07/01/20 07/01/20 07/01/20 18:16 18:16 18:54 WBC 6.1 RBC 3.78 Hgb 10.4 L Hct 31.4 L MCV 83 MCH 27.4 MCHC 33.0 RDW 15.7 H Plt Count 264 Seg Neutrophils % 71.9 Sodium 136.7 L Potassium 4.8 Chloride 107 Carbon Dioxide 24 Anion Gap 6 BUN 14 Creatinine 0.73 Est GFR ( Amer) > 60 Glucose 97 Lactic Acid Calcium 9.3 Total Bilirubin 0.4 AST 32 Alkaline Phosphatase 88 Total Protein 6.7 Albumin 3.8 Urine Color YELLOW Urine Appearance SLIGHTLY-CLOUDY Urine pH 6.0 Ur Specific Neal 1.010 Urine Protein NEGATIVE Urine Glucose (UA) NEGATIVE Urine Ketones NEGATIVE Urine Blood NEGATIVE Urine Nitrite NEGATIVE Ur Leukocyte Esterase NEGATIVE Urine WBC (Auto) 1 Urine RBC (Auto) 0 07/01/20 21:40 WBC RBC Hgb Hct MCV MCH MCHC RDW Plt Count Seg Neutrophils % Sodium Potassium Chloride Carbon Dioxide Anion Gap BUN Creatinine Est GFR ( Amer) Glucose Lactic Acid 0.7 Calcium Total Bilirubin AST Alkaline Phosphatase Total Protein Albumin Urine Color Urine Appearance Urine pH Ur Specific Neal Urine Protein Urine Glucose (UA) Urine Ketones Urine Blood Urine Nitrite Ur Leukocyte Esterase Urine WBC (Auto) Urine RBC (Auto) 07/01/20 07/01/20 18:16 18:16 Creatine Kinase 41 Troponin I < 0.012 NT-Pro-B Natriuret Pep 872 H Impressions: Chest X-Ray 07/01/20 18:13 IMPRESSION: NO ACUTE RADIOGRAPHIC FINDING IN THE CHEST. Head CT 07/01/20 18:13 IMPRESSION: Chronic ischemic changes. No acute intracranial imaging findings. EVIDENCE OF ACUTE STROKE: NO. Head CTA 07/01/20 19:07 IMPRESSION: 1. No significant stenosis of the cervical carotid or vertebral arteries. 2. No acute intracranial large vessel occlusion 3. I have requested the thin slice images and will issue an addendum if additional information is derived from those images. Neck CTA 07/01/20 19:07 IMPRESSION: 1. No significant stenosis of the cervical carotid or vertebral arteries. 2. No acute intracranial large vessel occlusion 3. I have requested the thin slice images and will issue an addendum if additional information is derived from those images. Assessment and Plan - Diagnosis (1) Stroke-like symptoms Is this a current diagnosis for this admission?: Yes Plan: Patient presents with worsening of left-sided upper and lower extremity weakness with right-sided facial droop She arrived within an hour of the onset of symptoms Head CT without contrast was negative for acute intracranial hemorrhage Case was discussed with her neurologist at [facility] and recommended conservative measures CTA head and neck was also unremarkable Per chart review, she has been extensively worked up in the past but no clear cause identified Kept her n.p.o. Swallow eval Neurologic, fall precaution and aspiration precaution On telemetry monitoring Continue aspirin and high intensity statin Continue gentle hydration with normal saline PT/OT, speech consults placed Echocardiogram, lipid panel in the a.m. (2) History of CVA with residual deficit Is this a current diagnosis for this admission?: Yes Plan: Patient has history of CVA involving bilateral MCA in 2019 with residual left- sided weakness with significant aphasia Currently presents worsening weakness on the same side with aphasia Continue atorvastatin for management as stated above per neurology recommendation Continue follow-up with outpatient neurology (3) Anxiety Is this a current diagnosis for this admission?: Yes Plan: Continue fluoxetine (4) Seizure disorder Is this a current diagnosis for this admission?: Yes Plan: Continue topiramate - Time Time Spent with patient: 35 or more minutes Total Critical Time (Minutes): 50 Medications reviewed and adjusted accordingly: Yes Anticipated Discharge Disposition: Home, Self Care Anticipated Discharge Timeframe: within 48 hours - Inpatient Certification Based on my medical assessment, after consideration of the patient's comorbidities, presenting symptoms, or acuity I expect that the services needed warrant INPATIENT care.: Yes I certify that my determination is in accordance with my understanding of Medicare's requirements for reasonable and necessary INPATIENT services [42 CFR 412.3e].: Yes Medical Necessity: Significant Comorbidiites Make Outpatient Treatment Too Risky, Need Close Monitoring Due to Risk of Patient Decompensation, Need For Continuous Telemetry Monitoring, Risk of Complication if Not Cared For in Hospital Post Hospital Care: D/C or Transfer Summary
--- NOTE | 2020-07-01 23:23 | RADIOLOGY REPORT (SQ) ---
CLINICAL HISTORY: RIght upper quadrant pain and tenderness COMPARISON: None. TECHNIQUE: US ABDOMEN LIMITED 07/01/2020 12:00 AM CHILD ATTENDANT FINDINGS: Liver is normal in echotexture. Portal vein is patent. Gallbladder is absent. Common bile duct measures 5 mm. Right kidney measures 10.2 cm without hydronephrosis. IMPRESSION: No acute findings.
[2020-07-01] MEDS: TOPIRAMATE 100 MG TABLET PO SCH (23:41)
[2020-07-01] MEDS: OXYCODONE-ACETAMINOPHEN 5-325 MG TABLET PO PRN (23:43)
[2020-07-01] MEDS: ATORVASTATIN CALCIUM 80 MG TABLET PO SCH (23:43)
[2020-07-02 07:07] LABS: ABSOLUTE BASOPHILS # (AUTO) 0.1 10^3/uL (0.0-0.2); ABSOLUTE EOSINOPHILS # (AUTO) 0.3 10^3/uL (0.0-0.6); ABSOLUTE MONOCYTES (AUTO) 0.5 10^3/uL (0.1-1.4); ABSOLUTE NEUT (AUTO) 3.6 10^3/uL (1.7-8.2); BASOPHILS % (AUTO) 0.8 % (0-2); EOSINOPHILS % (AUTO) 4.6 % (0-6); HEMATOCRIT 32.4 % (36.0-47.0); HEMOGLOBIN 10.5 g/dL (12.0-15.5); LYMPHOCYTES % (AUTO) 30.6 % (13-45); MEAN CORPUSCULAR HGB CONC 32.5 g/dL (32.0-36.0); MEAN CORPUSCULAR VOLUME 83 fl (80-97); MONOCYTES % (AUTO) 8.3 % (3-13); PLATELET COUNT 239 10^3/uL (150-450); RED BLOOD COUNT 3.89 10^6/uL (3.72-5.28); RED CELL DISTRIBUTION WIDTH 15.5 % (11.5-14.0); SEGMENTED NEUTROPHILS % (AUTO) 55.7 % (42-78); TOTAL CELLS COUNTED % (AUTO) 100 %; WHITE BLOOD COUNT 6.5 10^3/uL (4.0-10.5)
[2020-07-02 07:33] LABS: ANION GAP 7 (5-19); BLOOD UREA NITROGEN 16 mg/dL (7-20); CARBON DIOXIDE 21 mmol/L (22-30); CHLORIDE 109 mmol/L (98-107); CHOLESTEROL 118.71 mg/dL (0-200); GLUCOSE 79 mg/dL (75-110); POTASSIUM 4.5 mmol/L (3.6-5.0); TRIGLYCERIDES 87 mg/dL (<150)
[2020-07-02 07:43] LABS: DIRECT LDL 50 mg/dL (<100)
[2020-07-02] MEDS: OXYCODONE-ACETAMINOPHEN 5-325 MG TABLET PO PRN (08:41)
[2020-07-02] MEDS ORDERED: (PENDING PHARMACY ID) (Oxycodone Hcl/Acetaminophen [Oxycodone-Acetaminophen 10-325] 1 EACH PO PRN (08:50)
--- NOTE | 2020-07-02 09:02 | PDOC PROGRESS REPORT ---
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 Due to severe expressive aphasia 3 is partly from ED physician signout and record review. She has been extensively worked up in the past and so far clear etiology has not been identified. Patient is able to follow commands and is able to answer questions with sign. Neurology at [facility] was consulted by ED physician and case was discussed with her neurologist Dr. Bryan Magallanes who recommended conservative medical management. Of note patient also reports with a sign that she has been having pain in her abdomen pointing to her right upper quadrant area. She also stated that she has been having few episodes of vomiting with the last being a day ago. She also has been having dysuria in the past few days. She denies chest pain, palpitation, loss of consciousness, abnormal body movement or bowel or urinary incontinence. 07/02/[id number]-ayvs-old female with history of previous strokes affecting the bilateral MCA with residual left upper arm extremity weakness, expressive aphasia, dyspnea seizure disorder ,anxiety admitted for a TIA. Work-up so far negative for new strokes. Echocardiogram is pending. Patient is on aspirin, high-dose of statins. Echocardiogram is pending. PT OT consult was requested. Reason For Visit: TIA Physical Exam Vital Signs: Temp Pulse Resp BP Pulse Ox 98.1 F 51 L 16 144/63 H 100 07/02/20 08:05 07/02/20 08:05 07/02/20 08:05 07/02/20 08:05 07/02/20 08:05 Intake & Output 07/01/20 07/02/20 07/03/20 06:59 06:59 06:59 Intake Total 0 Balance 0 Weight 49 kg General appearance: PRESENT: no acute distress, thin Head exam: PRESENT: atraumatic Eye exam: PRESENT: PERRLA Ear exam: PRESENT: normal external ear exam Mouth exam: PRESENT: neck supple Teeth exam: PRESENT: poor dentation Neck exam: ABSENT: carotid bruit, JVD, lymphadenopathy, thyromegaly Respiratory exam: PRESENT: decreased breath sounds Cardiovascular exam: PRESENT: RRR. ABSENT: diastolic murmur, rubs, systolic murmur GI/Abdominal exam: PRESENT: normal bowel sounds, soft. ABSENT: distended, guarding, mass, organolmegaly, rebound, tenderness Rectal exam: PRESENT: deferred Extremities exam: PRESENT: full ROM. ABSENT: calf tenderness, clubbing, pedal edema Neurological exam: PRESENT: alert, awake, other - Left upper arm weakness Psychiatric exam: PRESENT: appropriate affect, normal mood. ABSENT: homicidal ideation, suicidal ideation Results Laboratory Results: 07/02/20 05:40 07/02/20 05:40 07/01/20 07/01/20 07/01/20 18:16 18:16 18:54 WBC 6.1 RBC 3.78 Hgb 10.4 L Hct 31.4 L MCV 83 MCH 27.4 MCHC 33.0 RDW 15.7 H Plt Count 264 Seg Neutrophils % 71.9 Sodium 136.7 L Potassium 4.8 Chloride 107 Carbon Dioxide 24 Anion Gap 6 BUN 14 Creatinine 0.73 Est GFR ( Amer) > 60 Glucose 97 Lactic Acid Calcium 9.3 Total Bilirubin 0.4 AST 32 Alkaline Phosphatase 88 Total Protein 6.7 Albumin 3.8 Triglycerides Cholesterol LDL Cholesterol Direct VLDL Cholesterol HDL Cholesterol Urine Color YELLOW Urine Appearance SLIGHTLY-CLOUDY Urine pH 6.0 Ur Specific [place] 1.010 Urine Protein NEGATIVE Urine Glucose (UA) NEGATIVE Urine Ketones NEGATIVE Urine Blood NEGATIVE Urine Nitrite NEGATIVE Ur Leukocyte Esterase NEGATIVE Urine WBC (Auto) 1 Urine RBC (Auto) 0 07/01/20 07/02/20 07/02/20 21:40 05:40 05:40 WBC 6.5 RBC 3.89 Hgb 10.5 L Hct 32.4 L MCV 83 MCH 27.0 MCHC 32.5 RDW 15.5 H Plt Count 239 Seg Neutrophils % 55.7 Sodium 137.2 Potassium 4.5 Chloride 109 H Carbon Dioxide 21 L Anion Gap 7 BUN 16 Creatinine 0.69 Est GFR ( Amer) > 60 Glucose 79 Lactic Acid 0.7 Calcium 9.0 Total Bilirubin AST Alkaline Phosphatase Total Protein Albumin Triglycerides 87 Cholesterol 118.71 LDL Cholesterol Direct 50 VLDL Cholesterol 17.0 HDL Cholesterol 52 Urine Color Urine Appearance Urine pH Ur Specific [place] Urine Protein Urine Glucose (UA) Urine Ketones Urine Blood Urine Nitrite Ur Leukocyte Esterase Urine WBC (Auto) Urine RBC (Auto) 07/01/20 07/01/20 18:16 18:16 Creatine Kinase 41 Troponin I < 0.012 NT-Pro-B Natriuret Pep 872 H Impressions: Abdomen Ultrasound 07/01/20 00:00 IMPRESSION: No acute findings. Chest X-Ray 07/01/20 18:13 IMPRESSION: NO ACUTE RADIOGRAPHIC FINDING IN THE CHEST. Head CT 07/01/20 18:13 IMPRESSION: Chronic ischemic changes. No acute intracranial imaging findings. EVIDENCE OF ACUTE STROKE: NO. Head CTA 07/01/20 19:07 IMPRESSION: 1. No significant stenosis of the cervical carotid or vertebral arteries. 2. No acute intracranial large vessel occlusion 3. I have requested the thin slice images and will issue an addendum if additional information is derived from those images. Neck CTA 07/01/20 19:07 IMPRESSION: 1. No significant stenosis of the cervical carotid or vertebral arteries. 2. No acute intracranial large vessel occlusion 3. I have requested the thin slice images and will issue an addendum if additional information is derived from those images. Assessment and Plan - Diagnosis (1) Stroke-like symptoms Is this a current diagnosis for this admission?: Yes Plan: Patient presents with worsening of left-sided upper and lower extremity weakness with right-sided facial droop She arrived within an hour of the onset of symptoms Head CT without contrast was negative for acute intracranial hemorrhage Case was discussed with her neurologist at [facility] and recommended conse rvative measures CTA head and neck was also unremarkable Per chart review, she has been extensively worked up in the past but no clear cause identified Kept her n.p.o. Swallow eval Neurologic, fall precaution and aspiration precaution On telemetry monitoring Continue aspirin and high intensity statin Continue gentle hydration with normal saline PT/OT, speech consults placed Echocardiogram, lipid panel in the a.m. 07/02/2014-09-trfv-old female with history of previous strokes admitted for strokelike symptoms. Work-up is negative so far. MRI of the brain, echocardiogram is pending at this time. PT OT consult was requested. 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 Patient is aphasic. Has left upper arm weakness present. To continue, aspirin, atorvastatin at this time. (3) Anxiety Is this a current diagnosis for this admission?: Yes Plan: Continue fluoxetine (4) Seizure disorder Is this a current diagnosis for this admission?: Yes Plan: Continue topiramate - Time Anticipated Discharge Disposition: Home, Self Care Anticipated Discharge Timeframe: within 24 hours
[2020-07-02] MEDS ORDERED: OXYCODONE HCL IR 5 MG TABLET PO PRN (09:04)
[2020-07-02] MEDS: FLUOXETINE HCL 20 MG CAPSULE PO SCH (09:06)
[2020-07-02] MEDS: ASPIRIN 81 MG TABLET, CHEWABLE PO SCH (09:06)
[2020-07-02] MEDS: ENOXAPARIN SODIUM INJ 40 MG/0.4 ML DISP.SYRIN SUBCUT SCH (09:06)
[2020-07-02] MEDS: FAMOTIDINE 20 MG TABLET PO SCH ×2 (09:06→22:08)
[2020-07-02] MEDS ORDERED: FLUOXETINE HCL 40 MG PO SCH (10:00)
--- NOTE | 2020-07-02 10:46 | RADIOLOGY REPORT (SQ) ---
EXAM DESCRIPTION: MRI HEAD WITHOUT IMAGES COMPLETED DATE/TIME: 07/02/2020 10:30 am REASON FOR STUDY: tia COMPARISON: 07/01/2020, 10/09/2019 MRI of TECHNIQUE: Multiplanar imaging includes non-contrasted T1, T2, FLAIR, and diffusion with ADC map seq uences. Images stored on PACS. LIMITATIONS: None. FINDINGS: ANATOMY: No anomalies. Normal vascular flow voids. Pituitary fossa normal. CSF SPACES: Ex vacuo dilation of the ventricular system compatible with parenchymal volume loss. CEREBRUM: Multiple areas of prior infarct with resultant encephalomalacia and CT signal prolongation throughout both hemispheres compatible with prior infarcts and stable. Diffusion imaging with no cherelle dence of abnormal diffusion signal suggestive of acute superimposed infarct. No evidence of mass or mass effect. POSTERIOR FOSSA: No signal alteration. No hemorrhage. No edema, masses or mass effect. Internal kavitha tory canals, cerebello-pontine angles, mastoids normal. DIFFUSION IMAGING: Negative for acute or sub-acute infarction. ORBITS: No masses. Globes normal. PARANASAL SINUSES: No fluid levels. Mucosa normal. OTHER: No other significant finding. IMPRESSION: 1. Sequelae from multiple bilateral prior infarcts and microangiopathic change, signifi cantly more than expected for patient age. 2. No evidence of new diffusion signal abnormality suggestive of superimposed acute infarct. EVIDENCE OF ACUTE STROKE: NO. TECHNICAL DOCUMENTATION: JOB ID: [id number] [employer]- All Rights Reserved Reading location - IP/workstation name: [email or web address]
[2020-07-02] MEDS: TOPIRAMATE 100 MG TABLET PO SCH ×2 (12:13→23:42)
--- NOTE | 2020-07-02 13:58 | XCELERA REPORT ---
[address] [address] Transthoracic Echocardiogram Report Name: HOLLIE LLOYD Age: 40 yrs Gender: Female : 1980 Patient Status: Inpatient Patient Location: [address] [place], [place] [id number] Study Date: 07/02/2020 10:59 AM Height: 65 in Weight: 108 lb BSA: 1.5 m2 Procedure: A two-dimensional transthoracic echocardiogram with color flow and Doppler was performed. Study Quality: Good. Reason For Study: TIA like symptoms History: TIA. Ordering Physician: UBALDO ERVIN Performed By: Idris Awan Interpretation Summary There is no obvious cardiac source of embolus noted on this transthoracic echocardiogram. Follow-up with a NENA is suggested if cardiac source is still suspected. The left ventricle is borderline dilated. There is normal left ventricular wall thickness. LV EF is 60% Left ventricular systolic function is normal. Doppler measurements suggest normal left ventricular diastolic function The left ventricular wall motion is normal. There is no thrombus. No ASD Or VSd.or PFO.Interatrial septum is aneurysmal. The right atrium is normal. The left atrial size is normal. There is no evidence of mitral valve prolapse. There is no vegetation seen on the mitral valve. There is no mitral valve stenosis. There is a mild amount of mitral regurgitation There is no LVOT obstruction. There is a moderate to severe amount of aortic regurgitation There is no tricuspid stenosis. There is a trace amount of tricuspid regurgitation Tricuspid regurgitation jet envelope not well defined to measure RV systolic pressure accurately. There is no pulmonic valvular stenosis. There is a mild amount of pulmonic regurgitation The aortic root is normal size. The inferior vena cava appeared dilated and decreased < 50% with respiration (RAP 15-20 mmHg) There is no pericardial effusion. There is no obvious cardiac source of embolus noted on this transthoracic echocardiogram. Follow-up with a NENA is suggested if cardiac source is still suspected MMode/2D Measurements & Calculations RVDd: 2.5 cm LVIDd: 5.8 cm FS: 32.5 % Ao root diam: 2.8 cm IVSd: 0.76 cm LVIDs: 3.9 cm EDV(Teich): 165.9 ml Ao root area: 6.3 cm2 LVPWd: 0.78 cm ESV(Teich): 66.1 ml LA dimension: 3.7 cm EF(Teich): 60.1 % Doppler Measurements & Calculations MV E max umair: MV P1/2t max umair: Ao V2 max: AI max umair: 87.5 cm/sec 85.4 cm/sec 155.7 cm/sec 478.2 cm/sec MV A max umair: MV P1/2t: 62.2 msec Ao max PG: AI max P.5 mmHg 77.5 cm/sec MVA(P1/2t): 3.5 cm2 9.7 mmHg AI dec slope: MV E/A: 1.1 MV dec slope: 149.0 cm/sec2 AI P1/2t: 939.8 msec 402.0 cm/sec2 MV dec time: 0.22 sec LV V1 max PG: PA V2 max: PI end-d umair: AV P1/2t-pr_phl: 3.6 mmHg 72.3 cm/sec 76.4 cm/sec 939.8 msec LV V1 max: PA max P.1 mmHg 94.9 cm/sec LV dP/dt: 1136 mmHg/s MV P1/2t-pr_phl: 62.2 msec Left Ventricle The left ventricle is borderline dilated. There is normal left ventricular wall thickness. LV EF is 60%. Left ventricular systolic function is normal. Doppler measurements suggest normal left ventricular diastolic function. The left ventricular wall motion is normal. There is no thrombus. No ASD Or VSd.or PFO.Interatrial septum is aneurysmal. Right Ventricle The right ventricle is normal in size and function. Atria The right atrium is normal. The left atrial size is normal. Mitral Valve There is no evidence of mitral valve prolapse. There is no vegetation seen on the mitral valve. There is no mitral valve stenosis. There is a mild amount of mitral regurgitation. Aortic Valve There is no aortic valvular vegetation. There is no aortic valve stenosis. There is no LVOT obstruction. There is a moderate to severe amount of aortic regurgitation. Tricuspid Valve There is no tricuspid stenosis. There is a trace amount of tricuspid regurgitation. Tricuspid regurgitation jet envelope not well defined to measure RV systolic pressure accurately. Pulmonic Valve There is no pulmonic valvular stenosis. There is a mild amount of pulmonic regurgitation. Great Vessels The aortic root is normal size. The inferior vena cava appeared dilated and decreased < 50% with respiration (RAP 15-20 mmHg). Effusions There is no pericardial effusion. : UBALDO ERVIN, Cher
[2020-07-02] MEDS ORDERED: OLANZAPINE 5 MG TABLET PO SCH (22:00)
[2020-07-02] MEDS ORDERED: (PENDING PHARMACY ID) (Olanzapine [Olanzapine] 10 MG Tablet) PO SCH (22:00)
[2020-07-02] MEDS: ATORVASTATIN CALCIUM 80 MG TABLET PO SCH (22:08)
[2020-07-02] MEDS ORDERED: TOPIRAMATE 100 MG TABLET ONE (23:22)
[2020-07-03 05:56] LABS: ABSOLUTE BASOPHILS # (AUTO) 0.1 10^3/uL (0.0-0.2); ABSOLUTE EOSINOPHILS # (AUTO) 0.4 10^3/uL (0.0-0.6); ABSOLUTE MONOCYTES (AUTO) 0.6 10^3/uL (0.1-1.4); BASOPHILS % (AUTO) 1.2 % (0-2); HEMATOCRIT 29.6 % (36.0-47.0); HEMOGLOBIN 9.7 g/dL (12.0-15.5); LYMPHOCYTES % (AUTO) 32.9 % (13-45); MEAN CORPUSCULAR HEMOGLOBIN 27.4 pg (27.0-33.4); MEAN CORPUSCULAR HGB CONC 32.9 g/dL (32.0-36.0); MEAN CORPUSCULAR VOLUME 83 fl (80-97); MONOCYTES % (AUTO) 9.6 % (3-13); PLATELET COUNT 239 10^3/uL (150-450); RED BLOOD COUNT 3.54 10^6/uL (3.72-5.28); RED CELL DISTRIBUTION WIDTH 15.5 % (11.5-14.0); SEGMENTED NEUTROPHILS % (AUTO) 50.3 % (42-78); TOTAL CELLS COUNTED % (AUTO) 100 %; WHITE BLOOD COUNT 5.9 10^3/uL (4.0-10.5)
[2020-07-03 06:24] LABS: ALBUMIN 3.6 g/dL (3.5-5.0); ALKALINE PHOSPHATASE 83 U/L (38-126); ANION GAP 8 (5-19); ASPARTATE AMINO TRANSFERASE 31 U/L (14-36); BILIRUBIN,DIRECT 0.1 mg/dL (0.0-0.4); BILIRUBIN,TOTAL 0.5 mg/dL (0.2-1.3); BLOOD UREA NITROGEN 13 mg/dL (7-20); CALCIUM 9.2 mg/dL (8.4-10.2); CARBON DIOXIDE 21 mmol/L (22-30); CHLORIDE 113 mmol/L (98-107); GLUCOSE 85 mg/dL (75-110); POTASSIUM 4.6 mmol/L (3.6-5.0); TOTAL PROTEIN 6.2 g/dL (6.3-8.2)
[2020-07-03] MEDS ORDERED: INFLUENZA QUAD (6MOS+) 2020-21 VAC 0.5 ML SYR IM ONE (08:00)
[2020-07-03] MEDS: ENOXAPARIN SODIUM INJ 40 MG/0.4 ML DISP.SYRIN SUBCUT SCH (09:45)
[2020-07-03] MEDS: FLUOXETINE HCL 20 MG CAPSULE PO SCH (09:45)
[2020-07-03] MEDS: ASPIRIN 81 MG TABLET, CHEWABLE PO SCH (09:45)
[2020-07-03] MEDS: FAMOTIDINE 20 MG TABLET PO SCH (09:45)
[2020-07-03] MEDS: TOPIRAMATE 100 MG TABLET PO SCH (09:51)
[2020-07-03 11:39] VITALS: BP 122/57
--- NOTE | 2020-07-03 14:56 | PDOC DISCHARGE SUMMARY ---
Impression - Admit/DC Date/PCP Admission Date/Primary Care Provider: 07/01/20 21:43 VANESSA PERALTA, DO (1) Stroke-like symptoms Is this a current diagnosis for this admission?: Yes Plan: Patient presents with worsening of left-sided upper and lower extremity weakness with right-sided facial droop She arrived within an hour of the onset of symptoms Head CT without contrast was negative for acute intracranial hemorrhage Case was discussed with her neurologist at [facility] and recommended conservative measures CTA head and neck was also unremarkable Per chart review, she has been extensively worked up in the past but no clear cause identified Kept her n.p.o. Swallow eval Neurologic, fall precaution and aspiration precaution On telemetry monitoring Continue aspirin and high intensity statin Continue gentle hydration with normal saline PT/OT, speech consults placed Echocardiogram, lipid panel in the a.m. 07/02/2046-54-lpeq-old female with history of previous strokes admitted for strokelike symptoms. Work-up is negative so far. MRI of the brain, echocardiogram is pending at this time. PT OT consult was requested. 07/03/2099-94-krrc-old female admitted with strokelike symptoms work-up is normal. Echocardiogram shows severe AR Dr. Davies agreed to see her in the office. 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 Patient is aphasic. Has left upper arm weakness present. To continue, aspirin, atorvastatin at this time. 07/03/20-she has history of bilateral MCA territory CVA with the left upper arm weakness. (3) Anxiety Is this a current diagnosis for this admission?: Yes Plan: Continue fluoxetine (4) Seizure disorder Is this a current diagnosis for this admission?: Yes Discharge Date: 07/03/20 - Discharge Diagnosis (1) Stroke-like symptoms Is this a current diagnosis for this admission?: Yes (2) History of CVA with residual deficit Is this a current diagnosis for this admission?: Yes (3) Anxiety Is this a current diagnosis for this admission?: Yes (4) Seizure disorder Is this a current diagnosis for this admission?: Yes - Additional Information Resuscitation Status: Full Code Discharge Diet: Cardiac Discharge Activity: Activity As Tolerated Referrals: KEARA ESPINAL MD [ACTIVE STAFF] - (follow up in 2 weeks) VANESSA PERALTA DO [Primary Care Provider] - Follow up as needed Home Medications: Atorvastatin Calcium [Lipitor 80 mg Tablet] 80 mg PO QHS 10/09/19 Topiramate [Topamax 100 mg Tablet] 200 mg PO Q12 10/09/19 Aspirin [Ecotrin 81 mg EC Tablet] 81 mg PO DAILY 07/01/20 Baclofen [Baclofen 10 mg Tablet] 10 mg PO TIDP PRN 07/01/20 History of Present Illiness History of Present Illness: HOLLIE LLOYD is a 40 year old female 40 year old female with a history of bilateral MCA CVA in 2019 with residual left upper extremity weakness with expressive aphasia, seizure disorder, anxiety who presents to the ED after she developed worsening of aphasia, left upper extremity weakness and right-sided facial droop which started around 5 PM about an hour before presentation. Due to severe expressive aphasia 3 is partly from ED physician signout and record review. She has been extensively worked up in the past and so far clear etiology has not been identified. Patient is able to follow commands and is able to answer questions with sign. Neurology at [facility] was consulted by ED physician and case was discussed with her neurologist Dr. Bryan Magallanes who recommended conservative medical management. Of note patient also reports with a sign that she has been having pain in her abdomen pointing to her right upper quadrant area. She also stated that she has been having few episodes of vomiting with the last being a day ago. She also has been having dysuria in the past few days. She denies chest pain, palpitation, loss of consciousness, abnormal body movement or bowel or urinary incontinence. Hospital Course Hospital Course: 40 year old female with a history of bilateral MCA CVA in 2019 with residual left upper extremity weakness with expressive aphasia, seizure disorder, anxiety who presents to the ED after she developed worsening of aphasia, left upper extremity weakness and right-sided facial droop which started around 5 PM about an hour before presentation. Due to severe expressive aphasia 3 is partly from ED physician signout and record review. She has been extensively worked up in the past and so far clear etiology has not been identified. Patient is able to follow commands and is able to answer questions with sign. Neurology at [facility] was consulted by ED physician and case was discussed with her neurologist Dr. Bryan Magallanes who recommended conservative medical management. Of note patient also reports with a sign that she has been having pain in her abdomen pointing to her right upper quadrant area. She also stated that she has been having few episodes of vomiting with the last being a day ago. She also has been having dysuria in the past few days. She denies chest pain, palpitation, loss of consciousness, abnormal body movement or bowel or urinary incontinence. 07/02/[id number]-old female with history of previous strokes affecting the bilateral MCA with residual left upper arm extremity weakness, expressive aphasia, dyspnea seizure disorder ,anxiety admitted for a TIA. Work-up so far negative for new strokes. Echocardiogram is pending. Patient is on aspirin, high-dose of statins. Echocardiogram is pending. PT OT consult was requested. 07/03/2020-MRI is negative for acute pathology. Echocardiogram shows severe aortic regurgitation under Dr. Davies agreed to follow-up as an outpatient. No acute events during the hospital stay. Patient is stable to be discharged. Physical Exam Vital Signs: Temp Pulse Resp BP Pulse Ox 97.5 F 56 L 16 122/57 L 100 07/03/20 11:38 07/03/20 11:38 07/03/20 11:38 07/03/20 11:38 07/03/20 11:38 Intake & Output 07/02/20 07/03/20 07/04/20 06:59 06:59 06:59 Intake Total 0 1322 Output Total 200 Balance 0 1122 Weight 49 kg 47.9 kg General appearance: PRESENT: no acute distress, cooperative Head exam: PRESENT: atraumatic Eye exam: PRESENT: PERRLA Ear exam: PRESENT: normal external ear exam Mouth exam: PRESENT: neck supple Neck exam: ABSENT: carotid bruit, JVD, lymphadenopathy, thyromegaly Respiratory exam: PRESENT: decreased breath sounds Cardiovascular exam: PRESENT: RRR. ABSENT: diastolic murmur, rubs, systolic murmur GI/Abdominal exam: PRESENT: normal bowel sounds, soft. ABSENT: distended, guarding, mass, organolmegaly, rebound, tenderness Rectal exam: PRESENT: deferred Extremities exam: PRESENT: full ROM. ABSENT: calf tenderness, clubbing, pedal edema Neurological exam: PRESENT: alert, awake, oriented to person, oriented to place, oriented to time, oriented to situation, CN II-XII grossly intact. ABSENT: motor sensory deficit Psychiatric exam: PRESENT: appropriate affect, normal mood. ABSENT: homicidal ideation, suicidal ideation Results Laboratory Results: WBC 5.9 10^3/uL (4.0-10.5) 07/03/20 04:51 RBC 3.54 10^6/uL (3.72-5.28) L 07/03/20 04:51 Hgb 9.7 g/dL (12.0-15.5) L 07/03/20 04:51 Hct 29.6 % (36.0-47.0) L 07/03/20 04:51 MCV 83 fl (80-97) 07/03/20 04:51 MCH 27.4 pg (27.0-33.4) 07/03/20 04:51 MCHC 32.9 g/dL (32.0-36.0) 07/03/20 04:51 RDW 15.5 % (11.5-14.0) H 07/03/20 04:51 Plt Count 239 10^3/uL (150-450) 07/03/20 04:51 Lymph % (Auto) 32.9 % (13-45) 07/03/20 04:51 [place] % (Auto) 9.6 % (3-13) 07/03/20 04:51 Eos % (Auto) 6.0 % (0-6) 07/03/20 04:51 Baso % (Auto) 1.2 % (0-2) 07/03/20 04:51 Absolute Neuts (auto) 3.0 10^3/uL (1.7-8.2) 07/03/20 04:51 Absolute Lymphs (auto) 2.0 10^3/uL (0.5-4.7) 07/03/20 04:51 Absolute Monos (auto) 0.6 10^3/uL (0.1-1.4) 07/03/20 04:51 Absolute Eos (auto) 0.4 10^3/uL (0.0-0.6) 07/03/20 04:51 Absolute Basos (auto) 0.1 10^3/uL (0.0-0.2) 07/03/20 04:51 Seg Neutrophils % 50.3 % (42-78) 07/03/20 04:51 PT 14.9 SEC (11.4-15.4) 07/01/20 18:16 INR 1.15 07/01/20 18:16 APTT 33.6 SEC (23.5-35.8) 07/01/20 18:16 Sodium 142.2 mmol/L (137-145) 07/03/20 04:51 Potassium 4.6 mmol/L (3.6-5.0) 07/03/20 04:51 Chloride 113 mmol/L (98-107) H 07/03/20 04:51 Carbon Dioxide 21 mmol/L (22-30) L 07/03/20 04:51 Anion Gap 8 (5-19) 07/03/20 04:51 BUN 13 mg/dL (7-20) 07/03/20 04:51 Creatinine 0.77 mg/dL (0.52-1.25) 07/03/20 04:51 Est GFR ( Amer) > 60 (>60) 07/03/20 04:51 Est GFR (MDRD) Non-Af > 60 (>60) 07/03/20 04:51 Glucose 85 mg/dL (75-110) 07/03/20 04:51 POC Glucose 82 mg/dL (70-110) 07/01/20 23:46 Lactic Acid 0.7 mmol/L (0.7-2.1) 07/01/20 21:40 Calcium 9.2 mg/dL (8.4-10.2) 07/03/20 04:51 Magnesium 2.0 mg/dL (1.6-2.3) 07/03/20 04:51 Total Bilirubin 0.5 mg/dL (0.2-1.3) 07/03/20 04:51 Direct Bilirubin 0.1 mg/dL (0.0-0.4) 07/03/20 04:51 Neonat Total Bilirubin Not Reportable 07/03/20 04:51 Neonat Direct Bilirubin Not Reportable 07/03/20 04:51 Neonat Indirect Bili Not Reportable 07/03/20 04:51 AST 31 U/L (14-36) 07/03/20 04:51 ALT 27 U/L (<35) 07/03/20 04:51 Alkaline Phosphatase 83 U/L (38-126) 07/03/20 04:51 Creatine Kinase 41 U/L (30-135) 07/01/20 18:16 Troponin I < 0.012 ng/mL 07/01/20 18:16 NT-Pro-B Natriuret Pep 872 pg/mL (<125) H 07/01/20 18:16 Total Protein 6.2 g/dL (6.3-8.2) L 07/03/20 04:51 Albumin 3.6 g/dL (3.5-5.0) 07/03/20 04:51 Triglycerides 87 mg/dL (<150) 07/02/20 05:40 Cholesterol 118.71 mg/dL (0-200) 07/02/20 05:40 LDL Cholesterol Direct 50 mg/dL (<100) 07/02/20 05:40 VLDL Cholesterol 17.0 mg/dL (10-31) 07/02/20 05:40 HDL Cholesterol 52 mg/dL (>40) 07/02/20 05:40 Urine Color YELLOW 07/01/20 18:54 Urine Appearance SLIGHTLY-CLOUDY 07/01/20 18:54 Urine pH 6.0 (5.0-9.0) 07/01/20 18:54 Ur Specific [place] 1.010 07/01/20 18:54 Urine Protein NEGATIVE mg/dL (NEGATIVE) 07/01/20 18:54 Urine Glucose (UA) NEGATIVE mg/dL (NEGATIVE) 07/01/20 18:54 Urine Ketones NEGATIVE mg/dL (NEGATIVE) 07/01/20 18:54 Urine Blood NEGATIVE (NEGATIVE) 07/01/20 18:54 Urine Nitrite NEGATIVE (NEGATIVE) 07/01/20 18:54 Urine Bilirubin NEGATIVE (NEGATIVE) 07/01/20 18:54 Urine Urobilinogen NEGATIVE mg/dL (<2.0) 07/01/20 18:54 Ur Leukocyte Esterase NEGATIVE (NEGATIVE) 07/01/20 18:54 Urine WBC (Auto) 1 /HPF 07/01/20 18:54 Urine RBC (Auto) 0 /HPF 07/01/20 18:54 Urine Bacteria (Auto) TRACE /HPF 07/01/20 18:54 Squamous Epi Cells Auto 5 /HPF 07/01/20 18:54 Urine Mucus (Auto) RARE /LPF 07/01/20 18:54 Urine Ascorbic Acid NEGATIVE (NEGATIVE) 07/01/20 18:54 07/01/20 18:16 Troponin I < 0.012 NT-Pro-B Natriuret Pep 872 H Impressions: Abdomen Ultrasound 07/01/20 00:00 IMPRESSION: No acute findings. Chest X-Ray 07/01/20 18:13 IMPRESSION: NO ACUTE RADIOGRAPHIC FINDING IN THE CHEST. Head CT 07/01/20 18:13 IMPRESSION: Chronic ischemic changes. No acute intracranial imaging findings. EVIDENCE OF ACUTE STROKE: NO. Head CTA 07/01/20 19:07 IMPRESSION: 1. No significant stenosis of the cervical carotid or vertebral arteries. 2. No acute intracranial large vessel occlusion 3. I have requested the thin slice images and will issue an addendum if additional information is derived from those images. Neck CTA 07/01/20 19:07 IMPRESSION: 1. No significant stenosis of the cervical carotid or vertebral arteries. 2. No acute intracranial large vessel occlusion 3. I have requested the thin slice images and will issue an addendum if additional information is derived from those images. Head MRI 07/02/20 00:00 IMPRESSION: 1. Sequelae from multiple bilateral prior infarcts and microangiopathic change, significantly more than expected for patient age. 2. No evidence of new diffusion signal abnormality suggestive of superimposed acute infarct. EVIDENCE OF ACUTE STROKE: NO. Plan Time Spent: Greater than 30 Minutes Stroke Is this a Stroke Patient?: No Acute Heart Failure Is this a Heart Failure Patient?: No
== END 2020-07-03 11:55 | disposition home or self-care (01) ==
LOC: ER 17:54 → INTOOBSV 21:43 → EH 21:43 → 3W 22:52
PROVIDERS: ADMIT Student in an Organized Health Care Education/Training Program; ATTEND Internal Medicine
DX: R29.810 Facial weakness (principal); I69.354 Hemiplegia and hemiparesis following cerebral infarction affecting left non-dominant side; I69.320 Aphasia following cerebral infarction; I69.393 Ataxia following cerebral infarction; F41.9 Anxiety disorder, unspecified; G40.909 Epilepsy, unspecified, not intractable, without status epilepticus; R10.11 Right upper quadrant pain; R11.10 Vomiting, unspecified; R30.0 Dysuria; I35.1 Nonrheumatic aortic (valve) insufficiency; R06.00 Dyspnea, unspecified; Z79.82 Long term (current) use of aspirin; Z79.899 Other long term (current) drug therapy; Z79.02 Long term (current) use of antithrombotics/antiplatelets; Z90.49 Acquired absence of other specified parts of digestive tract; F31.9 Bipolar disorder, unspecified; Z86.79 Personal history of other diseases of the circulatory system; Z86.39 Personal history of other endocrine, nutritional and metabolic disease; Z23 Encounter for immunization; Z87.19 Personal history of other diseases of the digestive system
CPT/HCPCS: 99285; 36415 ×3; 82962; 82550; 83605; 83735; 85025 ×3; 85610; 85730; 80048; 80053 ×2; 81001; 84484; 80061; 83880; 93306; 70551; 71045; 76705; 70450; 70496; 70498; 90686; 97116; 97162; 92610; 97535; 97166; G0378 ×4; G0008; A9270 ×15; J0500; J1885; J1650; J7030; 90471; J3490